=== PATIENT | female | born 1955 | race Caucasian/White ===

== ENCOUNTER → 2016-07-10 | Outpatient (CLI) | payer OTHER ==
[~2016-07-10] MED LIST: ADVIN25/60 INH; ALBUAER2 INH; ALPHTAB4 PO; AMLO-110 PO; APR50 PO; ARIP1TAB14 PO; ATV1 PO; AZIT-57 PO; BUDE180I INH; CARV12.52 PO; CHOL1000 PO; CHOLCAP2 PO; CLON-460 PO; CTP1 PO; CYAN10005 PO; DIAZ10TA3 PO; FLUO20CA36 PO; FLUT0.15 NAE; HYDR25TA4 PO; IPRASOL4 INH; LOSA100T65 PO; LVQ250 PO; MISC1TAB74 PO; MULT-506 PO; OXYC1TAB3 PO; PROM25TA9 PO; SPRIN/30 INH; VNTHFA/IN INH; VTMD PO; ZOLP10TA6 PO
[2016-07-10 10:56] LABS: BASO % 0.1 %; BASO ABS # 0.02 K/uL (0-0.2); COMPLETE YES; EOS % 0.3 %; HEMATOCRIT 39.5 % (37-47); IG% 0.1 %; LYMPH % 8.7 %; LYMPH ABS # 1.21 K/uL (1.2-3.4); MEAN CELL VOLUME 85.3 fL (80-100); MEAN CORPUSCULAR HEMOGLOBIN 28.7 pg (25-34); MEAN CORPUSCULAR HGB CONC 33.7 g/dl (32-36); MONO % 8.2 %; NEUT % 82.6 %; PLATELET COUNT 320 K/uL (130-400); RED BLOOD COUNT 4.63 M/uL (4.2-5.4); WHITE BLOOD COUNT 13.85 K/uL (4.8-10.8)
[2016-07-10 11:13] LABS: ALT/SGPT 22 U/L (12-78); AST/SGOT 27 U/L (15-37); BLOOD UREA NITROGEN 21 mg/dl (7-18); BUN/CREATININE RATIO 21.4 (10-20); CARBON DIOXIDE 27 mmol/L (21-32); CHLORIDE 96 mmol/L (98-107); CREATININE 0.96 mg/dl (0.60-1.20); GLUCOSE 101 mg/dl (70-99); POTASSIUM 3.6 mmol/L (3.5-5.1); SODIUM 130 mmol/L (136-145)
[2016-07-10 11:22] LABS: ALB/GLOB RATIO 0.8 (0.9-2); ALKALINE PHOSPHATASE 72 U/L (45-117); CHOLESTEROL 171 mg/dl (0-200); CHOLESTEROL/HDL RATIO 4.4; HDL CHOLESTEROL 39 mg/dl; LDL CHOLESTEROL CALCULATED 100 mg/dl; THYROID STIMULATING HORMONE 0.864 uIu/ml (0.300-4.500); TRIGLYCERIDES 159 mg/dl (0-150); VERY LOW DENSITY LIPOPROT CALC 32 mg/dl
== END | disposition home or self-care (01) ==
LOC: C.LAB 10:23
PROVIDERS: ATTEND Internal Medicine
DX: E55.9 Vitamin D deficiency, unspecified (principal); E04.1 Nontoxic single thyroid nodule; Z11.59 Encounter for screening for other viral diseases; E78.5 Hyperlipidemia, unspecified; I10 Essential (primary) hypertension

== ENCOUNTER → 2016-07-12 | Outpatient (CLI) | payer OTHER ==
--- NOTE | 2016-07-12 12:14 | DIAGNOSTIC IMAGING REPORT ---
TWO VIEW CHEST CLINICAL HISTORY: Fever. Atypical chest pain.. FINDINGS: PA and lateral chest radiographs are compared to study dated 04/15/2015 and correlated with chest CT dated 12/07/2015. The PA view is degraded by patient rotation. The heart is top normal for projection. There is atherosclerotic calcification of the thoracic aorta. Advanced emphysema and chronic interstitial thickening are similar to previous there there is developing nodularity identified at the right apex and in the left upper lobe. This is new from 12/07/2015. No lobar consolidation is seen. Small pleural effusions are suggested on the lateral view. There is no pneumothorax. The skeletal structures are osteopenic. The bony thorax appears intact. IMPRESSION: 1. Advanced emphysema. 2. There are nodular airspace opacities at the right apex and in the left upper lobe. These are new from 12/07/2015, and although this could be on an infectious/inflammatory basis neoplasm is not excluded. Follow-up with a chest CT is recommended in 2-3 weeks time following appropriate treatment. 3. Small pleural effusions are suspected on the lateral view. Electronically signed by: Vinny Epps M.D. 07/12/2016 12:11 PM Dictated Date/Time: 07/12/2016 12:08 PM
[2016-07-12 12:48] LABS: URINE APPEARANCE CLEAR (CLEAR); URINE BILIRUBIN NEG (NEG); URINE COLOR YELLOW; URINE EPITHELIAL CELL AUTO >30 /lpf (0-5); URINE NITRITE NEG (NEG); URINE PH 6.5 (4.5-7.5); URINE SPECIFIC GRAVITY 1.012 (1.000-1.030); UROBILINOGEN NEG (NEG); ZZUR CULT IF INDIC CLEAN CATCH NO
[2016-07-12 12:56] LABS: MANUAL MICROSCOPIC REQUIRED? NO; REVIEW REQ? NO
== END | disposition home or self-care (01) ==
LOC: C.RAD1850 11:26
PROVIDERS: ATTEND Internal Medicine
DX: Z87.898 Personal history of other specified conditions (principal)

== ENCOUNTER → 2016-07-25 | Outpatient (CLI) | payer OTHER ==
--- NOTE | 2016-07-25 10:30 | DIAGNOSTIC IMAGING REPORT ---
CT OF THE CHEST WITHOUT IV CONTRAST CLINICAL HISTORY: Lung mass, leukocytosis. Prior abnormal CT scan. COMPARISON STUDY: 12/07/2015 CT DOSE: 188.91 mGy.cm TECHNIQUE: CT of the thorax was performed from the thoracic inlet to the lung bases. Images are reviewed in the axial, sagittal, and coronal planes. IV contrast was not administered for this examination. FINDINGS: Thyroid: Imaged portions of the thyroid gland are normal in appearance. Thoracic aorta: The thoracic aorta is normal in course and caliber, noting standard 3 vessel arch anatomy. Heart: The heart is normal in size. There are coronary artery calcifications. Lungs and pleural spaces: There are no significant pleural effusions. There is a new irregular 1 cm nodule within the right upper lobe as visualized in image #96/301. There is a new irregular 5 mm nodule within the right upper lobe as visualized in image #65/301. There is a new pleural-based irregular right apical pulmonary nodule measuring 16 mm as visualized on image #38/301. There is a new 12 mm irregular left upper lobe pulmonary nodule as visualized in image #63/301. There are 2 irregular marginated nodules within the superior segment of the left lower lobe measuring 12 mm 11 mm respectively. These are best visualized on images #86/301 and 96/301. There is moderately severe pulmonary emphysema. Mediastinum: Mediastinal lymph nodes are the upper limits of normal in size. Irene: There is no evidence of pathologic hilar adenopathy given the limitations of a noncontrast study Axilla: Clear. Upper abdomen: There are multiple hypodense hepatic lesions which approach water attenuation likely represent cysts. Skeletal structures: There are no lytic or blastic osseous lesions. IMPRESSION: 1. Interval development of multiple irregular pulmonary opacities. The time course favors an inflammatory over neoplastic etiology. A 2 month follow-up CT scan subsequent antibiotic therapy is recommended. 2. Emphysema. Electronically signed by: Medardo Mustafa M.D. 07/25/2016 10:04 AM Dictated Date/Time: 07/25/2016 9:53 AM
== END | disposition home or self-care (01) ==
LOC: C.CTS 09:30
PROVIDERS: ATTEND Internal Medicine
DX: D72.829 Elevated white blood cell count, unspecified (principal); J18.9 Pneumonia, unspecified organism; R91.8 Other nonspecific abnormal finding of lung field

== ENCOUNTER → 2016-09-05 | Outpatient (CLI) | payer OTHER ==
[2016-09-05 13:03] LABS: BASO % 0.6 %; BASO ABS # 0.04 K/uL (0-0.2); COMPLETE YES; EOS % 1.5 %; HEMATOCRIT 40.7 % (37-47); IG% 0.2 %; LYMPH % 26.1 %; LYMPH ABS # 1.72 K/uL (1.2-3.4); MEAN CELL VOLUME 87.5 fL (80-100); MEAN CORPUSCULAR HGB CONC 33.2 g/dl (32-36); MEAN PLATELET VOLUME 10.3 fL (7.4-10.4); MONO % 5.5 %; NEUT % 66.1 %; PLATELET COUNT 273 K/uL (130-400); RED BLOOD COUNT 4.65 M/uL (4.2-5.4); WHITE BLOOD COUNT 6.59 K/uL (4.8-10.8)
[2016-09-05 14:33] LABS: ESTIMATED AVERAGE GLUCOSE 120 mg/dl; HA1C FLAG Normal (Normal)
[2016-09-05 15:50] LABS: ALT/SGPT 35 U/L (12-78); BLOOD UREA NITROGEN 9 mg/dl (7-18); BUN/CREATININE RATIO 10.8 (10-20); CARBON DIOXIDE 24 mmol/L (21-32); CHLORIDE 105 mmol/L (98-107); CREATININE 0.84 mg/dl (0.60-1.20); GLUCOSE 77 mg/dl (70-99); POTASSIUM 3.9 mmol/L (3.5-5.1); SODIUM 140 mmol/L (136-145)
[2016-09-05 16:01] LABS: ALB/GLOB RATIO 1.1 (0.9-2); ALKALINE PHOSPHATASE 67 U/L (45-117); AST/SGOT 43 U/L (15-37)
[2016-09-05 16:10] LABS: CALCIUM 9.3 mg/dl (8.5-10.1)
[2016-09-08 18:12] LABS: TSI <89 % baseline (<140)
== END | disposition home or self-care (01) ==
LOC: C.LAB1850 11:44
PROVIDERS: ATTEND Internal Medicine Endocrinology, Diabetes & Metabolism
DX: R73.9 Hyperglycemia, unspecified (principal); E04.1 Nontoxic single thyroid nodule; G62.9 Polyneuropathy, unspecified; R00.2 Palpitations

== ENCOUNTER → 2016-09-07 | Outpatient (CLI) | payer OTHER ==
--- NOTE | 2016-09-07 16:04 | DIAGNOSTIC IMAGING REPORT ---
Thyroid ultrasound CLINICAL HISTORY: E04.1 Thyroid COMPARISON STUDY: 10/16/2015 FINDINGS: The right lobe of the thyroid measures 42 x 14 x 12 mm. There is a circumscribed hypoechoic upper pole nodule measuring 6 x 5 x 4 mm. There is a lower pole hypoechoic nodule measuring 4 x 3 x 4 mm. The left lobe measures 40 x 9 x 11 mm. There are tangential hypoechoic foci inferior to the left lobe of the thyroid, possibly representing lymph nodes. The largest measures 7 x 5 x 4 mm. Also evident are mildly prominent lymph nodes within the neck. The largest the right measures 16 mm in long axis. The largest on the left measures 11 mm in long axis. IMPRESSION: 1. Stable multinodular thyroid gland 2. Tangential hypoechoic nodules inferior to the left lobe of thyroid. While likely representing lymph nodes, one of these could represent a parathyroid nodule. 3. Minimally prominent cervical lymph nodes. Electronically signed by: Medardo Mustafa M.D. 09/07/2016 4:02 PM Dictated Date/Time: 09/07/2016 3:58 PM
== END | disposition home or self-care (01) ==
LOC: C.ULTR 15:26
PROVIDERS: ATTEND Internal Medicine Endocrinology, Diabetes & Metabolism
DX: E04.2 Nontoxic multinodular goiter (principal)

== ENCOUNTER 2016-09-19 10:21 | Inpatient (IN) | payer OTHER ==
[~2016-09-19] VITALS: Ht 149.9 cm; Wt 41.5 kg
[~2016-09-19 10:21] MED LIST changes: -ALPHTAB4 PO; -AZIT-57 PO; -CHOLCAP2 PO; -CTP1 PO; -CYAN10005 PO; -FLUT0.15 NAE; -LVQ250 PO; -MISC1TAB74 PO; -VNTHFA/IN INH
[2016-09-19 11:17] LABS: HEMATOCRIT 35.4 % (37-47); MEAN CELL VOLUME 87.6 fL (80-100); MEAN CORPUSCULAR HEMOGLOBIN 28.7 pg (25-34); MEAN CORPUSCULAR HGB CONC 32.8 g/dl (32-36); MEAN PLATELET VOLUME 9.3 fL (7.4-10.4); PLATELET COUNT 569 K/uL (130-400); RED BLOOD COUNT 4.04 M/uL (4.2-5.4); WHITE BLOOD COUNT 15.84 K/uL (4.8-10.8)
--- NOTE | 2016-09-19 11:23 | DIAGNOSTIC IMAGING REPORT ---
CHEST ONE VIEW PORTABLE CLINICAL HISTORY: Atypical chest pain and shortness of breath COMPARISON STUDY: 07/12/2016 FINDINGS: The cardiac and mediastinal contours remain stable. The patient is hyperinflated. There is underlying pulmonary emphysema. The previously identified upper lobe nodular opacities appear less prominent. There is no lobar consolidation. There is persistent blunting of the right lateral costophrenic angle.[ IMPRESSION: 1. Pulmonary emphysema 2. Decreased prominence of the previously described nodular upper lung zone opacities Electronically signed by: Medardo Mustafa M.D. 09/19/2016 11:22 AM Dictated Date/Time: 09/19/2016 11:20 AM
[2016-09-19 11:34] LABS: PARTIAL THROMBOPLASTIN RATIO 1.2; PROTHROMBIN TIME (PATIENT) 11.2 SECONDS (9.0-12.0)
[2016-09-19 11:35] LABS: BUN/CREATININE RATIO 12.4 (10-20); CALCIUM 9.2 mg/dl (8.5-10.1); CREATININE 0.71 mg/dl (0.60-1.20); POTASSIUM 3.6 mmol/L (3.5-5.1)
[2016-09-19] MEDS ORDERED: VNTHFA/IN INH (11:35)
[2016-09-19] MEDS ORDERED: CHOLCAP2 PO (11:38)
[2016-09-19 11:40] LABS: ALB/GLOB RATIO 0.7 (0.9-2); CKMB/CK RATIO 1.5 (0-3.0)
[2016-09-19] MEDS ORDERED: SODIUM CHLORIDE 0.9% 1000ML 1,000 ML IV STA (11:52)
[2016-09-19] MEDS ORDERED: ALPHTAB4 PO (11:53)
[2016-09-19] MEDS ORDERED: FLUT0.15 NAE (11:54)
[2016-09-19] MEDS ORDERED: MISC1TAB74 PO (11:55)
[2016-09-19] MEDS ORDERED: CYAN10005 PO (11:55)
--- NOTE | 2016-09-19 12:32 | EMERGENCY ROOM VISIT NOTE ---
History Report prepared by Anup: Yesenia Freeman Under the Supervision of: Dr. Shaina Contreras D.O. First contact with patient: 11:07 Chief Complaint: Chest pain Stated Complaint: V, TROUBLE BREATHING, CP Nursing Triage Summary: pt has been running fever, weak and chest pain left neck into head. has hx emphysema and copd History of Present Illness The patient is a 60 year old female who presents to the Emergency Room with complaints of constant chest pain since yesterday. Daughter states that many family members have been sick with respiratory symptoms recently. Last week the patient developed intermittent fevers with temperatures up to 104. She then developed chest pain, cough, shortness of breath, and generalized body aches. The patient notes chest pain that radiates into the left side of her neck. She rates her pain as a 10/10 in severity. She took 4 ibuprofen today for her symptoms. She has multiple inhalers and a nebulizer at home. 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 She cannot use NC O2 because of previous skin cancer on her nose and she cannot move air through her nostrils. The patient notes a loss of appetite. She states that she has not eaten in two days because when she eats she starts to shake. She denies any abdominal pain with eating. She has felt nauseated but denies any vomiting. The patient was recently diagnosed with Graves' Disease. She has not started her treatment course yet and has a follow-up appointment for that on September 27. She also has osteoporosis and the patient reports bone pain that she thinks is secondary to her osteoporosis. She also has a history of COPD and emphysema. The patient does see a practice physician. She is on Lasix but does not take it every day. Source of History: patient, family (daughter) Onset: yesterday Position: chest Symptom Intensity: 10/10 Quality: other (radiating) Timing: constant Modifying Factors (Relieving): ibuprofen Associated Symptoms: + fevers, + cough, + SOB, + nausea, No vomiting, No abdominal pain Review of Systems See HPI for pertinent positives & negatives. A total of 10 systems reviewed and were otherwise negative. Past Medical & Surgical Medical Problems: (1) Anxiety (2) Back pain (3) Brain aneurysm (4) CAD (coronary artery disease) (5) COPD (chronic obstructive pulmonary disease) (6) GERD (gastroesophageal reflux disease) (7) GI bleed (8) Hypertension (9) Nausea & vomiting (10) Nausea & vomiting (11) Pneumonia (12) PTSD (post-traumatic stress disorder) Family History Cancer Heart disease Hypertension Kidney disease Kidney stones Social History Smoking Status: Current Every Day Smoker Alcohol Use: occasionally Marital Status: Housing Status: lives with family Occupation Status: disabled Current/Historical Medications Scheduled Albuterol Hfa (Ventolin Hfa), 2 PUFFS INH BID Vmffb-G-Waqlkfjfhmlwr (Beano), 2 TABS PO TIDM Amlodipine (Norvasc), 5 MG PO BID Aripiprazole (Aripiprazole), 5 MG PO DAILY Budesonide (Inhalation) (Pulmicort Flexhaler), 2 PUFFS INH BID Carvedilol (Coreg), 0.5 TAB PO BID Cholecalciferol (Vitamin D3), 1 TAB PO DAILY Cholecalciferol (D3-50), 1 CAP PO 2XWK Clonidine HCl (Clonidine HCl), 0.3 MG PO TID Cyanocobalamin (Vitamin B-12), 1,000 MCG PO DAILY Fluoxetine HCl (Fluoxetine HCl), 20 MG PO QID Fluticasone Prop/Salmeterol (Advair Diskus 250/50 60 Dose), 1 PUFF INH BID Fluticasone Propionate (Nasal) (Flonase Allergy Relief), 1 SPRAY YUVAL DAILY Hydralazine HCl (Hydralazine HCl), 100 MG PO BID Hydrochlorothiazide (Hctz), 25 MG PO DAILY Lorazepam (Lorazepam), 3 MG PO HS Losartan Potassium (Cozaar), 100 MG PO DAILY Misc Natural Products (Green Tea), 1 TAB PO DAILY Multivitamin (Multivitamin), 1 TAB PO DAILY Tiotropium [place] (Spiriva Handihaler), 1 CAP INH DAILY Scheduled PRN Diazepam (Valium), 10 MG PO BID PRN for Anxiety Ipratropium-Albuterol (Duoneb), 1 TREATMENT INH Q4H PRN for SOB/Wheezing Promethazine Hcl (Phenergan), 25 MG PO BID PRN for Nausea Zolpidem Tartrate (Zolpidem Tartrate), 10 MG PO HS PRN for Sleep Allergies Coded Allergies: Lamotrigine (Verified Allergy, Intermediate, RASH, NAUSEA, 02/18/16) Ondansetron (Verified Allergy, Intermediate, ITCHING, 09/19/16) Amoxicillin (Verified Allergy, Unknown, UNKN, 09/19/16) Clavulanic Acid (Verified Allergy, Unknown, UNKN, 09/19/16) Gabapentin (Verified Allergy, Unknown, UNKN, 02/18/16) Ketamine (Unverified Allergy, Unknown, claims it will cause sudden , 09/19/16) Tramadol (Verified Adverse Reaction, Intermediate, NAUSEA, 02/18/16) Physical Exam Vital Signs Date Time Temp Pulse Resp B/P (MAP) Pulse Ox O2 Delivery O2 Flow Rate FiO2 09/19/16 16:06 91 18 148/108 96 Mask 2.0 09/19/16 14:51 90 18 150/104 98 Mask 2.0 09/19/16 13:54 89 18 143/89 98 Mask 2.0 09/19/16 13:28 96 09/19/16 13:24 37.4 09/19/16 12:55 89 18 147/94 98 Mask 2.0 09/19/16 12:20 89 18 151/103 98 Mask 2.0 09/19/16 11:30 92 20 158/104 99 Mask 2.0 09/19/16 11:00 95 20 99 Mask 2.0 09/19/16 11:00 99 Mask 2.0 09/19/16 10:56 99 09/19/16 10:47 100 20 158/107 99 Mask 2.0 09/19/16 10:27 36.9 107 18 158/91 88 Physical Exam GENERAL: alert, appears older than stated age, frail appearing, ill appearing. EYE EXAM: normal conjunctiva, PERRL and EOM's grossly intact OROPHARYNX: no exudate, no erythema, lips, buccal mucosa, and tongue normal and mucous membranes are mildly dry NECK: supple, left perispinal region reproducible tenderness, no carotid bruits , no nuchal rigidity, no adenopathy LUNGS: Breath sounds diminished. Normal chest wall mechanics HEART: no murmurs, S1 normal and S2 normal CHEST: No reproducible chest pain. ABDOMEN: abdomen soft, non-tender, normo-active bowel sounds, no masses, no rebound or guarding. BACK: Back is symmetrical on inspection and there is no deformity, no midline tenderness, no CVA tenderness. SKIN: no rashes and no bruising UPPER EXTREMITIES: upper extremities are grossly normal. LOWER EXTREMITIES: No pitting edema. NEURO EXAM: Normal sensorium, cranial nerves II-XII grossly intact, normal speech, no gross weakness of arms, no gross weakness of legs. Medical Decision & Procedures ER Provider Diagnostic Interpretation: Radiology results have been interpreted by the radiologist and reviewed by me. CHEST ONE VIEW PORTABLE CLINICAL HISTORY: Atypical chest pain and shortness of breath COMPARISON STUDY: 07/12/2016 FINDINGS: The cardiac and mediastinal contours remain stable. The patient is hyperinflated. There is underlying pulmonary emphysema. The previously identified upper lobe nodular opacities appear less prominent. There is no lobar consolidation. There is persistent blunting of the right lateral costophrenic angle.[ IMPRESSION: 1. Pulmonary emphysema 2. Decreased prominence of the previously described nodular upper lung zone opacities Electronically signed by: Medardo Mustafa M.D. 09/19/2016 11:22 AM Dictated Date/Time: 09/19/2016 11:[address] ANGIOGRAM OF THE CHEST CLINICAL HISTORY: Atypical chest pain and shortness of breath COMPARISON STUDY: Noncontrast chest CT dated 07/25/2016 TECHNIQUE: Following the IV administration of 72 mL of Optiray-320, CT angiogram of the thorax was performed from the thoracic inlet to the lung bases utilizing the pulmonary embolus protocol. Images are reviewed in the axial, sagittal, and coronal planes. IV contrast was administered without complication. MIP imaging was performed. CT DOSE: 180.72 mGy.cm FINDINGS: There is a 37 mm left lobe hepatic cyst. There are borderline enlarged bilateral hilar lymph nodes. There was no evidence of thoracic aortic dilatation. There were no pulmonary artery filling defects to indicate acute pulmonary embolism. No pleural effusions are visualized. There is pulmonary emphysema. There is respiratory motion artifact. There is no lobar consolidation. There is an 8 mm left upper lobe pulmonary nodule, slightly smaller than the prior study. There is a 13 mm right upper lobe pleural-based opacity, slightly smaller than the prior study. There is an 8 mm Visual left lower lobe nodule, slightly smaller than the prior study. There is mild diffuse bronchial wall thickening. There are scattered tiny nodules, likely inflammatory/postinflammatory. IMPRESSION: 1. No evidence of acute pulmonary embolism 2. Borderline enlarged hilar lymph nodes 3. Emphysema 4. Interval decrease in the size of the multiple irregular pulmonary opacities. This favors an inflammatory over neoplastic etiology. Electronically signed by: Medardo Mustafa M.D. 09/19/2016 1:41 PM Dictated Date/Time: 09/19/2016 1:36 PM Laboratory Results Test 09/19/16 10:50 09/19/16 11:14 09/19/16 16:00 Prothrombin Time 11.2 SECONDS (9.0-12.0) Prothromb Time International Ratio 1.0 (0.9-1.1) Activated Partial Thromboplast Time 31.7 SECONDS (21.0-31.0) Partial Thromboplastin Ratio 1.2 D-Dimer 710 ug/L FEU (0-500) Total Bilirubin 0.3 mg/dl (0.2-1) Aspartate Amino Transf (AST/SGOT) 23 U/L (15-37) Alanine Aminotransferase (ALT/SGPT) 23 U/L (12-78) Alkaline Phosphatase 94 U/L (45-117) Total Creatine Kinase 106 U/L (26-192) Creatine Kinase MB 1.6 ng/ml (0.5-3.6) Creatine Kinase MB Ratio 1.5 (0-3.0) Pro-B-Type Natriuretic Peptide 823 pg/ml (0-900) Total Protein 7.1 gm/dl (6.4-8.2) Albumin 3.0 gm/dl (3.4-5.0) Globulin 4.1 gm/dl (2.5-4.0) Albumin/Globulin Ratio 0.7 (0.9-2) Hepatitis C Antibody Screen NEG (NEG) Bedside Troponin I < 0.030 ng/ml (0-0.045) Urine Color YELLOW Urine Appearance CLEAR (CLEAR) Urine pH 6.5 (4.5-7.5) Urine Specific [place] > 1.045 (1.000-1.030) Urine Protein NEG (NEG) Urine Glucose (UA) NEG (NEG) Urine Ketones NEG (NEG) Urine Occult Blood TRACE (NEG) Urine Nitrite NEG (NEG) Urine Bilirubin NEG (NEG) Urine Urobilinogen NEG (NEG) Urine Leukocyte Esterase NEG (NEG) Urine WBC (Auto) 10-30 /hpf (0-5) Urine RBC (Auto) 0-4 /hpf (0-4) Urine Hyaline Casts (Auto) 1-5 /lpf (0-5) Urine Epithelial Cells (Auto) 20-30 /lpf (0-5) Urine Bacteria (Auto) NEG (NEG) Laboratory results per my review. Medications Administered Medications (Trade) Dose Ordered Sig/Laura Route Start Time Stop Time Status Last Admin Dose Admin Sodium Chloride 1,000 ml @ 250 mls/hr Q4H STAT IV 09/19/16 11:52 09/19/16 15:51 DC 09/19/16 11:59 250 MLS/HR Methylprednisolone Sodium Succinate (Solu-Medrol IV) 125 mg NOW STAT IV 09/19/16 13:28 09/19/16 13:29 DC 09/19/16 13:52 125 MG Levofloxacin (Levaquin / D5W) 750 mg NOW STAT IV 09/19/16 13:28 09/19/16 13:29 DC 09/19/16 13:52 750 MG Acetaminophen (Tylenol Tab) 650 mg Q4H PRN PO 09/19/16 16:30 10/19/16 16:29 09/19/16 21:09 650 MG ECG Indication: chest pain Rate (beats per minute): 97 Rhythm: normal sinus Findings: no acute ischemic change, left axis deviation, other (normal intervals) ED Course 1107: The patient was evaluated in room C10. A complete history and physical exam was performed. 1152: NSS 1000 ml @ 250 mls/hr IV 1328: Levofloxacin 750 mg IV, Solu-Medrol 125 mg IV 1414: I reassessed the patient at this time. She is resting more comfortably. I discussed the results and treatment plan with the patient and her daughter. I answered all pertaining questions that they had. They expressed understanding and verbalized agreement. The patient will be evaluated by the [facility] for further management. Medical Decision Differential diagnoses includes but is not limited to acute coronary syndrome, myocardial infarction, pericarditis, pulmonary embolus, aortic dissection, pneumonia, pneumothorax, musculoskeletal, shingles, esophageal. Medication Reconciliation: I attest that I have personally reviewed the patient' s current medication list. Blood pressure screening: Patient was found to have an elevated blood pressure and was referred to their primary doctor for recheck and further treatment. Patient with significant comorbidities and concerning presentation today. Patient unable to wear home O2 to recent facial surgery, however patient continues to also smoke. Patient using home MDIs at home as directed did not feeling any sense of relief. Patient initially hypoxic and changed her facial mask. Additional imaging did not reveal any consolidation, effusion, evidence of pulmonary edema, or pulmonary embolism. Likely given new leukocytosis, recent fevers, worsening cough insurance of breath patient with COPD exacerbation. Doubt primary cardiac etiology. Patient given antibiotics and steroids here, offered nebulizer treatments the patient declined stating they typically "make her feel worse". Discussed with patient need for additional treatment, compliance with treatment plan, cessation of smoking, she verbalized understanding. Impression Primary Impression: COPD exacerbation Additional Impressions: Dyspnea Left sided chest pain Scribe Attestation The scribe's documentation has been prepared under my direction and personally reviewed by me in its entirety. I confirm that the note above accurately reflects all work, treatment, procedures, and medical decision making performed by me. Departure Information Dispostion Being Evaluated By Hospitalist Referrals RV. Aguila MD (PCP) Patient Instructions My [facility] Problem Qualifiers Additional Impressions: Dyspnea Dyspnea type: shortness of breath Qualified Codes: R06.02 - Shortness of breath
[2016-09-19] MEDS ORDERED: OPTIRAY 320 IV PRN (13:15)
[2016-09-19] MEDS ORDERED: LEVAQUIN 750MG / 150ML D5W IV STA (13:28)
[2016-09-19] MEDS ORDERED: METHYLPREDNISOLONE 125 MG VIAL IV STA (13:28)
--- NOTE | 2016-09-19 13:42 | DIAGNOSTIC IMAGING REPORT ---
CT ANGIOGRAM OF THE CHEST CLINICAL HISTORY: Atypical chest pain and shortness of breath COMPARISON STUDY: Noncontrast chest CT dated 07/25/2016 TECHNIQUE: Following the IV administration of 72 mL of Optiray-320, CT angiogram of the thorax was performed from the thoracic inlet to the lung bases utilizing the pulmonary embolus protocol. Images are reviewed in the axial, sagittal, and coronal planes. IV contrast was administered without complication. MIP imaging was performed. CT DOSE: 180.72 mGy.cm FINDINGS: There is a 37 mm left lobe hepatic cyst. There are borderline enlarged bilateral hilar lymph nodes. There was no evidence of thoracic aortic dilatation. There were no pulmonary artery filling defects to indicate acute pulmonary embolism. No pleural effusions are visualized. There is pulmonary emphysema. There is respiratory motion artifact. There is no lobar consolidation. There is an 8 mm left upper lobe pulmonary nodule, slightly smaller than the prior study. There is a 13 mm right upper lobe pleural-based opacity, slightly smaller than the prior study. There is an 8 mm Visual left lower lobe nodule, slightly smaller than the prior study. There is mild diffuse bronchial wall thickening. There are scattered tiny nodules, likely inflammatory/postinflammatory. IMPRESSION: 1. No evidence of acute pulmonary embolism 2. Borderline enlarged hilar lymph nodes 3. Emphysema 4. Interval decrease in the size of the multiple irregular pulmonary opacities. This favors an inflammatory over neoplastic etiology. Electronically signed by: Medardo Mustafa M.D. 09/19/2016 1:41 PM Dictated Date/Time: 09/19/2016 1:36 PM
[2016-09-19 16:17] LABS: URINE APPEARANCE CLEAR (CLEAR); URINE BILIRUBIN NEG (NEG); URINE COLOR YELLOW; URINE EPITHELIAL CELL AUTO 20-30 /lpf (0-5); URINE NITRITE NEG (NEG); URINE PH 6.5 (4.5-7.5); URINE SPECIFIC GRAVITY > 1.045 (1.000-1.030); UROBILINOGEN NEG (NEG); ZZUR CULT IF INDIC CLEAN CATCH YES
[2016-09-19 16:21] LABS: MANUAL MICROSCOPIC REQUIRED? NO; REVIEW REQ? NO
[2016-09-19] MEDS ORDERED: POLYETHYLENE (MIRALAX) 17 GM PACK PO PRN (16:30)
[2016-09-19] MEDS ORDERED: ALUMINUM/MAGNESIUM/SIMETH (MAALOX MAX) 30 ML UDC PO PRN (16:30)
[2016-09-19] MEDS ORDERED: MAGNESIUM HYDROXIDE SUSP 30 ML UDC PO PRN (16:30)
[2016-09-19] MEDS ORDERED: ZOLPIDEM TARTRATE 10 MG TAB PO PRN (16:45)
[2016-09-19] MEDS ORDERED: PROMETHAZINE HCL 25 MG TAB PO PRN (16:45)
[2016-09-19] MEDS ORDERED: DIAZEPAM 5MG TAB PO PRN (16:45)
[2016-09-19 18:02] VITALS: BP_SYST 159; BP_SYST 161; BP_DIAS 107; BP_DIAS 97; PULSE 93; TEMP 36.8; O2SAT 95
[2016-09-19 18:09] VITALS: BP 159/97; PULSE 93; TEMP 36.8; Ht 149.9 cm; Wt 41.5 kg
[2016-09-19] MEDS ORDERED: PNEUMOCOCCAL ADMINISTRATION CHARGE ONE (19:00)
[2016-09-19] MEDS ORDERED: PNEUMOCOCCAL POLYSACCHARIDES 25 MCG/0.5 ML VIAL/SYR IM. ONE (19:00)
[2016-09-19 19:36] VITALS: PULSE 106; O2SAT 96
[2016-09-19] MEDS: ALBUT/IPRATROP 3MG/0.5MG NEB 3 ML VIAL INH SCH (19:36)
[2016-09-19 20:05] VITALS: O2SAT 96
--- NOTE | 2016-09-19 20:06 | History and Physical ---
History & Physical Date & Time of Service: Sep 19, 2016 at 19:33 Chief Complaint: Chest Pain, Copd Exacerbation Primary Care Physician: RV. Aguila MD History of Present Illness Source: patient, family (granddaughter at bedside), clinic records, hospital records This is a 60 y/o female with a history of COPD, CAD, HTN, HLD, recently diagnosed with Grave's disease, anxiety and depression who presented to the ED on 09/19 with fevers, cough, shortness of breath and generalized pain. The patient complains of fevers up to 104F and a productive cough with yellow sputum for the last week. She has also noticed worsening shortness of breath and wheezing. The patient is supposed to be on continuous oxygen, but she states that she cannot use NC due to a severe septal deviation and nasal deformity. She complains of nausea but denies vomiting. She states that she has pain all over "in her bones" and rates this discomfort as a 10/10 ache everywhere. She also complains of a central chest pressure that she states has been present since her bronchoscopy several months ago. She rates her chest discomfort as a 4/10. She complains of intermittent palpitations, and states that her insomnia has been getting worse. The patient states she was recently diagnosed with Grave's disease but has not started treatment yet. She is scheduled to follow up with the tractor mechanic next week. The patient denies chills, sweats, palpitations, claudication, cough, wheezing, shortness of breath , vomiting, abdominal pain, dysuria, hematuria, urinary retention, paralysis, weakness, numbness and tingling. Past Medical/Surgical History Medical Problems: (1) Anxiety Status: Chronic (2) Back pain Status: Chronic (3) Brain aneurysm Status: Resolved (4) CAD (coronary artery disease) Status: Chronic (5) COPD (chronic obstructive pulmonary disease) Status: Chronic (6) GERD (gastroesophageal reflux disease) Status: Chronic (7) GI bleed Status: Resolved (8) Hypertension Status: Chronic (9) Nausea & vomiting Status: Resolved (10) Nausea & vomiting Status: Resolved (11) Pneumonia Status: Resolved (12) PTSD (post-traumatic stress disorder) Status: Chronic Family History Cancer (breast, thyroid) Heart disease Hypertension Kidney disease Kidney stones Myocardial infarction Stroke Social History Smoking Status: Current Every Day Smoker (3 cigarettes/day) Smokeless Tobacco Use: No Alcohol Use: none Drug Use: none Marital Status: Housing status: lives alone Occupational Status: disabled Immunizations History of Influenza Vaccine: No History of Tetanus Vaccine?: Yes History of Pneumococcal: No History of Hepatitis B Vaccine: No Multi-Drug Resistant Organisms History of MDRO: No Allergies Coded Allergies: Lamotrigine (Verified Allergy, Intermediate, RASH, NAUSEA, 02/18/16) Ondansetron (Verified Allergy, Intermediate, ITCHING, 09/19/16) Amoxicillin (Verified Allergy, Unknown, UNKN, 09/19/16) Clavulanic Acid (Verified Allergy, Unknown, UNKN, 09/19/16) Gabapentin (Verified Allergy, Unknown, UNKN, 02/18/16) Ketamine (Unverified Allergy, Unknown, claims it will cause sudden , 09/19/16) Tramadol (Verified Adverse Reaction, Intermediate, NAUSEA, 02/18/16) Home Medications Scheduled Albuterol Hfa (Ventolin Hfa), 2 PUFFS INH BID Yfgfp-V-Levwlyqmvaagu (Beano), 2 TABS PO TIDM Amlodipine (Norvasc), 5 MG PO BID Aripiprazole (Aripiprazole), 5 MG PO DAILY Carvedilol (Coreg), 0.5 TAB PO BID Cholecalciferol (Vitamin D3), 1 TAB PO DAILY Cholecalciferol (D3-50), 1 CAP PO 2XWK Clonidine HCl (Clonidine HCl), 0.3 MG PO TID Cyanocobalamin (Vitamin B-12), 1,000 MCG PO DAILY Fluoxetine HCl (Fluoxetine HCl), 20 MG PO QID Fluticasone Prop/Salmeterol (Advair Diskus 250/50 60 Dose), 1 PUFF INH BID Fluticasone Propionate (Nasal) (Flonase Allergy Relief), 1 SPRAY YUVAL DAILY Hydralazine HCl (Hydralazine HCl), 100 MG PO BID Hydrochlorothiazide (Hctz), 25 MG PO DAILY Levofloxacin (Levofloxacin), 250 MG PO DAILY@11 Lorazepam (Lorazepam), 3 MG PO HS Losartan Potassium (Cozaar), 100 MG PO DAILY Misc Natural Products (Green Tea), 1 TAB PO DAILY Multivitamin (Multivitamin), 1 TAB PO DAILY Tiotropium [place] (Spiriva Handihaler), 1 CAP INH DAILY Scheduled PRN Diazepam (Valium), 10 MG PO BID PRN for Anxiety Ipratropium-Albuterol (Duoneb), 1 TREATMENT INH Q4H PRN for SOB/Wheezing Promethazine Hcl (Phenergan), 25 MG PO BID PRN for Nausea Zolpidem Tartrate (Zolpidem Tartrate), 10 MG PO HS PRN for Sleep Review of Systems Constitutional: + fever, + weakness, + fatigue, No chills, No sweats Eyes: No worsening of vision, No eye pain, No diplopia ENT: No hearing loss, No sore throat, No trouble swallowing Respiratory: + cough, + sputum, + wheezing, + shortness of breath Cardiovascular: + chest pain, + palpitations, No claudication Abdomen: + nausea, No pain, No vomiting Musculoskeletal: + joint pain, No muscle pain, No swelling Genitourinary - Female: No dysuria, No urinary retention, No hematuria Neurologic: No paralysis, No weakness, No numbness/tingling Integumentary: No rash, No itch, No color change Physical Exam Vital Signs Date Time Temp Pulse Resp B/P (MAP) Pulse Ox O2 Delivery O2 Flow Rate FiO2 09/19/16 18:09 36.8 93 18 159/97 Mask 2.0 09/19/16 18:02 36.8 93 18 161/107 (125) 95 09/19/16 16:56 91 18 142/94 98 Mask 2.0 09/19/16 16:06 91 18 148/108 96 Mask 2.0 09/19/16 14:51 90 18 150/104 98 Mask 2.0 09/19/16 13:54 89 18 143/89 98 Mask 2.0 09/19/16 13:28 96 09/19/16 13:24 37.4 09/19/16 12:55 89 18 147/94 98 Mask 2.0 09/19/16 12:20 89 18 151/103 98 Mask 2.0 09/19/16 11:30 92 20 158/104 99 Mask 2.0 09/19/16 11:00 95 20 99 Mask 2.0 09/19/16 11:00 99 Mask 2.0 09/19/16 10:56 99 09/19/16 10:47 100 20 158/107 99 Mask 2.0 09/19/16 10:27 36.9 107 18 158/91 88 General Appearance: no apparent distress, + cachetic Head: normocephalic, atraumatic Eyes: normal inspection, PERRL, EOMI ENT: normal ENT inspection, hearing grossly normal, pharynx normal Neck: supple, no JVD, trachea midline Respiratory/Chest: normal breath sounds, no respiratory distress, + wheezing ( diffuse throughout) Cardiovascular: regular rate, rhythm, no gallop, no murmur Abdomen/GI: normal bowel sounds, non tender, soft Extremities/Musculoskelatal: normal inspection, no calf tenderness, no pedal edema Neurologic/Psych: alert, oriented x 3, + pertinent finding (anxious) Skin: normal color, warm/dry, no rash Diagnostics Laboratory Results Results Past 24 Hours Test 09/19/16 10:50 09/19/16 11:14 09/19/16 16:00 09/19/16 19:00 Range/Units White Blood Count 15.84 4.8-10.8 K/uL Red Blood Count 4.04 4.2-5.4 M/uL Hemoglobin 11.6 12.0-16.0 g/dL Hematocrit 35.4 37-47 % Mean Corpuscular Volume 87.6 80-100 fL Mean Corpuscular Hemoglobin 28.7 25-34 pg Mean Corpuscular Hemoglobin Concent 32.8 32-36 g/dl RDW Standard Deviation 48.1 36.4-46.3 fL RDW Coefficient of Variation 14.8 11.5-14.5 % Platelet Count 569 130-400 K/uL Mean Platelet Volume 9.3 7.4-10.4 fL Prothrombin Time 11.2 9.0-12.0 SECONDS Prothromb Time International Ratio 1.0 0.9-1.1 Activated Partial Thromboplast Time 31.7 21.0-31.0 SECONDS Partial Thromboplastin Ratio 1.2 D-Dimer 710 0-500 ug/L FEU Sodium Level 141 136-145 mmol/L Potassium Level 3.6 3.5-5.1 mmol/L Chloride Level 104 98-107 mmol/L Carbon Dioxide Level 29 21-32 mmol/L Anion Gap 8.0 3-11 mmol/L Blood Urea Nitrogen 9 7-18 mg/dl Creatinine 0.71 0.60-1.20 mg/dl Est Creatinine Clear Calc Drug Dose 48.6 ml/min Estimated GFR () 106.5 Estimated GFR (Non- 91.9 BUN/Creatinine Ratio 12.4 10-20 Random Glucose 93 70-99 mg/dl Calcium Level 9.2 8.5-10.1 mg/dl Total Bilirubin 0.3 0.2-1 mg/dl Aspartate Amino Transf (AST/SGOT) 23 15-37 U/L Alanine Aminotransferase (ALT/SGPT) 23 12-78 U/L Alkaline Phosphatase 94 45-117 U/L Total Creatine Kinase 106 26-192 U/L Creatine Kinase MB 1.6 0.5-3.6 ng/ml Creatine Kinase MB Ratio 1.5 0-3.0 Pro-B-Type Natriuretic Peptide 823 0-900 pg/ml Total Protein 7.1 6.4-8.2 gm/dl Albumin 3.0 3.4-5.0 gm/dl Globulin 4.1 2.5-4.0 gm/dl Albumin/Globulin Ratio 0.7 0.9-2 Bedside Troponin I < 0.030 0-0.045 ng/ml Urine Color YELLOW Urine Appearance CLEAR CLEAR Urine pH 6.5 4.5-7.5 Urine Specific [place] > 1.045 1.000-1.030 Urine Protein NEG NEG Urine Glucose (UA) NEG NEG Urine Ketones NEG NEG Urine Occult Blood TRACE NEG Urine Nitrite NEG NEG Urine Bilirubin NEG NEG Urine Urobilinogen NEG NEG Urine Leukocyte Esterase NEG NEG Urine WBC (Auto) 10-30 0-5 /hpf Urine RBC (Auto) 0-4 0-4 /hpf Urine Hyaline Casts (Auto) 1-5 0-5 /lpf Urine Epithelial Cells (Auto) 20-30 0-5 /lpf Urine Bacteria (Auto) NEG NEG Microbiology Results 09/19/16 Urine Culture, Received Pending Diagnostic Radiology Reviewed the following studies and agree with interpretation as follows: Patient Name: ANN MARIE MCALLISTER Unit Number: [id number] Dictated: 09/19/161119 Transcribed: 09/19/161119 ARG Printed Date/Time: [~ rep prt dt]/[~ rep prt tm] [~ rep ct labl] - [~ rep ct ivnm] [facility] [place] [address] Dictated: 09/19/16 1120 Transcribed: 09/19/16 1120 ARG Printed Date/Time: [~ rep prt dt]/[~ rep prt tm] [~ rep ct labl] - [~ rep ct ivnm] Patient: ANN MARIE MCALLISTER Address1: [address] Rec: [id number] Address2: Acct ID: [id number] [facility] Zip: [place] [address] Date: 1955 Sex: F Room/Bed: Ref Phy: RV. Aguila MD SC: [facility] Att Phy: Report #: [id number] Velma Phy: RV. Aguila MD Test: CXR1P Admit Phy: Automotive General Manager: TATY Interpreting Phy: Medardo Mustafa M.D. Diagnosis: V, TROUBLE BREATHING, CP Ordering Phy: ED, PROTOCOL Service Date: 09/19/16 Admit Date: 09/19/16 MNE: PWRSCRIBE CONF: DICTATED BY: Medardo Mustafa M.D.]] CC: RV. Aguila MD ED,PROTOCOL Shaina Contreras DO Endcc: [~ rep ct add3]] CHEST ONE VIEW PORTABLE CLINICAL HISTORY: Atypical chest pain and shortness of breath COMPARISON STUDY: 07/12/2016 FINDINGS: The cardiac and mediastinal contours remain stable. The patient is hyperinflated. There is underlying pulmonary emphysema. The previously identified upper lobe nodular opacities appear less prominent. There is no lobar consolidation. There is persistent blunting of the right lateral costophrenic angle.[ IMPRESSION: 1. Pulmonary emphysema 2. Decreased prominence of the previously described nodular upper lung zone opacities Electronically signed by: Medardo Mustafa M.D. 09/19/2016 11:22 AM Dictated Date/Time: 09/19/2016 11:20 AM The status of this report is Signed. Draft = Not yet reviewed or approved by Radiologist. Signed = Reviewed and approved by Radiologist. <AttendingPhy></AttendingPhy> <FamilyPhy>RV. Aguila MD</ FamilyPhy> <PrimaryPhy>RV. Aguila MD</PrimaryPhy> <UnitNumber> [id number]</UnitNumber> <VisitNumber>[id number]</VisitNumber> <PatientName> ANN MARIE MCALLISTER</PatientName> <DateOfBirth>1955</DateOfBirth> <Location>C.EDC< /Location> <ServiceDate>09/19/16</ServiceDate> <MNE>ESINDI</MNE> <OrderingPhy>ED , PROTOCOL</OrderingPhy> <OrderingPhyMNE>f rep ord dr clancy</OrderingPhyMNE> < DictatingPhyMNE>f rep dict dr clancy</DictatingPhyMNE> <CCListMNE>f rep ct mne</ CCListMNE> <AdmittingPhyMNE>f pt admit dr clancy</AdmittingPhyMNE> <AttendingPhyMNE >f pt attend dr clancy</AttendingPhyMNE> <ConsultingPhyMNE>f pt consult dr clancy</ConsultingPhyMNE> <FamilyPhyMNE>f pt fam dr clancy</FamilyPhyMNE> <OtherPhyMNE>f pt other dr clancy</OtherPhyMNE> < PrimaryPhyMNE>f pt prim care dr clancy</PrimaryPhyMNE> <ReferringPhyMNE>f pt referring dr clancy</ReferringPhyMNE> Patient Name: ANN MARIE MCALLISTER Unit Number: [id number] Dictated: 09/19/161335 Transcribed: 09/19/161335 ARG Printed Date/Time: [~ rep prt dt]/[~ rep prt tm] [~ rep ct labl] - [~ rep ct ivnm] [facility] [place] [address] Dictated: 09/19/161335 Transcribed: 09/19/161335 ARG Printed Date/Time: [~ rep prt dt]/[~ rep prt tm] [~ rep ct labl] - [~ rep ct ivnm] Patient: ANN MARIE MCALLISTER Address1: [address] [facility] Rec: [id number] Address2: [address] Acct ID: [id number] [facility] Zip: [place] [address] Date: 1955 Sex: F Room/Bed: Ref Phy: RV. Aguila MD SC: JAMIE Att Phy: Report #: [id number] Velma Phy: RV. Aguila MD Test: CXPEA Admit Phy: Automotive General Manager: FLACA Interpreting Phy: Medardo Mustafa M.D. Diagnosis: V, TROUBLE BREATHING, CP Ordering Phy: Shaina Contreras DO Service Date: 09/19/16 Admit Date: 09/19/16 MNE: PWRSCRIBE CONF: DICTATED BY: Medardo Mustafa M.D.]] CC: RV. Mingo, Shaina Broussard DO Endcc: [~ rep ct add3]] CT ANGIOGRAM OF THE CHEST CLINICAL HISTORY: Atypical chest pain and shortness of breath COMPARISON STUDY: Noncontrast chest CT dated 07/25/2016 TECHNIQUE: Following the IV administration of 72 mL of Optiray-320, CT angiogram of the thorax was performed from the thoracic inlet to the lung bases utilizing the pulmonary embolus protocol. Images are reviewed in the axial, sagittal, and coronal planes. IV contrast was administered without complication. MIP imaging was performed. CT DOSE: 180.72 mGy.cm FINDINGS: There is a 37 mm left lobe hepatic cyst. There are borderline enlarged bilateral hilar lymph nodes. There was no evidence of thoracic aortic dilatation. There were no pulmonary artery filling defects to indicate acute pulmonary embolism. No pleural effusions are visualized. There is pulmonary emphysema. There is respiratory motion artifact. There is no lobar consolidation. There is an 8 mm left upper lobe pulmonary nodule, slightly smaller than the prior study. There is a 13 mm right upper lobe pleural-based opacity, slightly smaller than the prior study. There is an 8 mm Visual left lower lobe nodule, slightly smaller than the prior study. There is mild diffuse bronchial wall thickening. There are scattered tiny nodules, likely inflammatory/postinflammatory. IMPRESSION: 1. No evidence of acute pulmonary embolism 2. Borderline enlarged hilar lymph nodes 3. Emphysema 4. Interval decrease in the size of the multiple irregular pulmonary opacities. This favors an inflammatory over neoplastic etiology. Electronically signed by: Medardo Mustafa M.D. 09/19/2016 1:41 PM Dictated Date/Time: 09/19/2016 1:36 PM The status of this report is Signed. Draft = Not yet reviewed or approved by Radiologist. Signed = Reviewed and approved by Radiologist. <AttendingPhy></AttendingPhy> <FamilyPhy>RV. Aguila MD</ FamilyPhy> <PrimaryPhy>RV. Aguila MD</PrimaryPhy> <UnitNumber> [id number]</UnitNumber> <VisitNumber>[id number]</VisitNumber> <PatientName> ANN MARIE MCALLISTER</PatientName> <DateOfBirth>1955</DateOfBirth> <Location>C.EDC< /Location> <ServiceDate>09/19/16</ServiceDate> <MNE>ESINDI</MNE> <OrderingPhy> Shaina Contreras DO</OrderingPhy> <OrderingPhyMNE>f rep ord dr clacny</ OrderingPhyMNE> <DictatingPhyMNE>f rep dict dr clancy</DictatingPhyMNE> <CCListMNE> f rep ct mne</CCListMNE> <AdmittingPhyMNE>f pt admit dr clancy</AdmittingPhyMNE> < AttendingPhyMNE>f pt attend dr clancy</AttendingPhyMNE> <ConsultingPhyMNE>f pt consult dr clancy</ConsultingPhyMNE> <FamilyPhyMNE>f pt fam dr clancy</FamilyPhyMNE> <OtherPhyMNE>f pt other dr clancy</OtherPhyMNE> < PrimaryPhyMNE>f pt prim care dr clancy</PrimaryPhyMNE> <ReferringPhyMNE>f pt referring dr clancy</ReferringPhyMNE> EKG Reviewed EKG and agree with interpretation as follows: 97 bpm, NSR Impression Assessment and Plan 60 y/o female with a history of COPD, CAD, HTN, HLD, recently diagnosed with Grave's disease, anxiety and depression who presented to the ED on 09/19 with fevers, cough, shortness of breath and generalized pain. Pt hypoxic on arrival with O2 sat of 88% on room air. Pt was afebrile and other VSS. WBC 15.84. D- dimer 710. CXR shows emphysema and improvement of previous nodular opacities. CTA negative for PE, shows borderline enlarged hilar lymph nodes. Pt was given loading dose of Solu-Medol and Levaquin in ED. COPD exacerbation -Admit to telemetry -O2 by protocol. Cannot use NC due to nasal deformities. H/o BCC of nose, Moh' s procedure and nasal reconstruction -Solu-Medrol 20 mg IV q8h, unlikely pt could tolerate higher dose -Levaquin 500 mg IV qd -DuoNebs QIDR and q2h prn SOB/wheezing -Continue Advair BID, Pulmicort BID and Spiriva Chest pain -Cardiac monitoring on tele -Troponin q8h x 3. First troponin negative -EKG q am and prn with chest pain CAD, HTN--medications per patient and outpt records -Continue Norvasc 5 mg PO TID, Coreg 6.25 mg PO BID, clonidine 0.3 mg PO TID, hydralazine 100 mg PO BID, HCTZ 25 mg PO qd and losartan 100 mg PO qd Anxiety and depression--medications per patient and outpt records -Continue Abilify 5 mg PO qd, diazepam 10 mg PO BID prn anxiety, and fluoxetine 20 mg PO QID Insomnia -Continue Ativan 3 mg PO qhs DVT prophylaxis -KAVON palma and SCDs Code Status -Level V, DO NOT RESUSCITATE Level of Care Telemetry Advanced Directives Existing Living Will: Yes Existing Power of Kayaking Instructor: No VTE Prophylaxis VTE Risk Assessment Done? Y/N: Yes Risk Level: Moderate Given or contraindicated: T.E.DNicholas Stockmiguel angel, SCD's Assessment and Plan Attending Addendum: I have physically seen and examined this patient, have directed the physician assistants medical extremities, and agree with the H&P as noted above with the following exceptions: NONE The patient is awake, well-developed and adequately nourished, alert and oriented 3, normocephalic and atraumatic, lying in bed and in no acute distress. HEENT--PERRL, EOMI, mucous membranes and oropharynx normal. Neck--supple, no JVD or bruits, thyroid normal, trachea midline, no adenopathy. Heart--normal S1 and S2, no extra beats, no murmurs, rubs or gallops. Lungs--decreased breath sounds at bases bilaterally/few scattered rhonchi, no respiratory distress, no accessory muscle use. Abdomen--normal bowel sounds and soft, nontender and nondistended, no hernias or masses, no organomegaly. Extremities--no cyanosis, clubbing or edema. There are good distal pulses b/l. Dermatologic--normal skin turgor, normal color, warm and dry, no abnormal lymph nodes, no rash. Neurologic--cranial nerves II through XII grossly intact, motor and sensory examination normal. Rheumatologic--normal range of motion, nontender, muscles and joints. Psychiatric--normal affect. Assessment and Plan: 1. COPD exacerbation--admitted to the telemetry unit for close oxygen monitoring, serial cardiac enzymes, cardiac rhythm monitoring and a 2-D echocardiogram with Dopplers. Place on Levaquin 500 mg IV daily, Solu-Medrol 20 mg IV every 8 hours, and guaifenesin extended release 600 mg by mouth twice a day. Duonebs 4 times a day and every 2 hours when necessary. Continue Advair, Pulmicort and Spiriva.
[2016-09-19] MEDS: FLUTICASONE/SALMETEROL 250/50 (ADVAIR) 14 PUFF/1 INHALER INH SCH (21:00)
[2016-09-19] MEDS ORDERED: AMLODIPINE BESYLATE 5 MG TAB PO SCH (21:00)
[2016-09-19] MEDS: CLONIDINE HCL 0.3 MG TAB PO SCH (21:00)
[2016-09-19] MEDS: CARVEDILOL 6.25 MG TAB PO SCH (21:00)
[2016-09-19] MEDS: ACETAMINOPHEN 325 MG TAB PO PRN (21:09)
[2016-09-19] MEDS: BUDESONIDE 90 MCG INH INH SCH (21:11)
[2016-09-19 21:15] VITALS: BP 132/84; PULSE 100
[2016-09-19] MEDS: METHYLPREDNISOLONE IV 20 MG in SYRINGE 0 ML IV SCH (21:31)
[2016-09-19] MEDS: LORAZEPAM 1 MG TAB PO SCH (22:20)
[2016-09-19 23:19] VITALS: BP 126/87; PULSE 88; TEMP 36.9; O2SAT 90
[2016-09-20] VITALS (15 sets, daily range): BP systolic 103–148; BP diastolic 69–95; PULSE 62–142; TEMP 36.3–37.3; O2SAT 90–99
[2016-09-20 03:59] LABS: BASO % 0.1 %; BASO ABS # 0.01 K/uL (0-0.2); COMPLETE YES; HEMATOCRIT 35.5 % (37-47); IG% 0.1 %; LYMPH % 10.4 %; LYMPH ABS # 0.73 K/uL (1.2-3.4); MEAN CELL VOLUME 88.1 fL (80-100); MEAN CORPUSCULAR HEMOGLOBIN 28.8 pg (25-34); MEAN CORPUSCULAR HGB CONC 32.7 g/dl (32-36); MEAN PLATELET VOLUME 9.4 fL (7.4-10.4); NEUT % 88.4 %; PLATELET COUNT 563 K/uL (130-400); RED BLOOD COUNT 4.03 M/uL (4.2-5.4); WHITE BLOOD COUNT 6.99 K/uL (4.8-10.8)
[2016-09-20 04:20] LABS: BUN/CREATININE RATIO 20.6 (10-20); CALCIUM 9.1 mg/dl (8.5-10.1); CARBON DIOXIDE 30 mmol/L (21-32); CHLORIDE 105 mmol/L (98-107); CREATININE 0.76 mg/dl (0.60-1.20); GLUCOSE 127 mg/dl (70-99); POTASSIUM 4.7 mmol/L (3.5-5.1); SODIUM 139 mmol/L (136-145)
[2016-09-20 04:27] LABS: BLOOD UREA NITROGEN 16 mg/dl (7-18)
[2016-09-20] MEDS ORDERED: NURSING VERBAL MED ORDER ONE ×2 (05:00→09:30)
[2016-09-20] MEDS ORDERED: METOPROLOL TARTRATE 1 MG/ML VIAL ONE (05:17)
[2016-09-20] MEDS: METHYLPREDNISOLONE IV 20 MG in SYRINGE 0 ML IV SCH ×2 (06:15→13:55)
[2016-09-20] MEDS: ALBUT/IPRATROP 3MG/0.5MG NEB 3 ML VIAL INH SCH ×4 (07:38→18:50)
[2016-09-20] MEDS: LOSARTAN POTASSIUM 50 MG TAB PO SCH (08:56)
[2016-09-20] MEDS: CLONIDINE HCL 0.3 MG TAB PO SCH ×3 (08:56→22:20)
[2016-09-20] MEDS: CARVEDILOL 6.25 MG TAB PO SCH ×3 (08:57→22:20)
[2016-09-20] MEDS: FLUTICASONE/SALMETEROL 250/50 (ADVAIR) 14 PUFF/1 INHALER INH SCH ×2 (08:58→22:19)
[2016-09-20] MEDS: MULTIVITAMIN TAB PO SCH (08:58)
[2016-09-20] MEDS: TIOTROPIUM BROMIDE 5 PUFF/90 MCG INH INH SCH (08:58)
[2016-09-20] MEDS: BUDESONIDE 90 MCG INH INH SCH ×2 (08:58→22:19)
[2016-09-20] MEDS: CHOLECALCIFEROL 1000 INTER.UNIT TAB PO SCH (08:59)
[2016-09-20] MEDS: CYANOCOBALAMIN 500 MCG TAB (VIT B-12) PO SCH (08:59)
[2016-09-20] MEDS: ARIPIprazole TAB 5 MG TAB PO SCH (09:00)
[2016-09-20] MEDS: FLUOXETINE HCL 20 MG CAP PO SCH ×5 (09:00→22:20)
[2016-09-20] MEDS: HYDROCHLOROTHIAZIDE 25 MG TAB PO SCH (09:01)
[2016-09-20] MEDS ORDERED: LEVOFLOXACIN / D5W 500 MG in PREMIXED IN D5W 100 ML IV SCH (14:00)
[2016-09-20] MEDS ORDERED: ALBUT/IPRATROP 3MG/0.5MG NEB 3 ML VIAL INH PRN (16:00)
--- NOTE | 2016-09-20 17:01 | ECHOCARDIOGRAM REPORT ---
*NOTICE TO RECEIVING CONSTITUTION PARTY AGENCY This information is strictly Confidential and protected under [place] law. [place] law prohibits you from making any further disclosure of this information unless further disclosure is expressly permitted by the written consent of the person to whom it pertains or is authorized by law. A general authorization for the release of medical or other information is not sufficient for this purpose. Hospital accepts no responsibility if the information is made available to any other person, INCLUDING THE PATIENT. Interpretation Summary * Name: ANN MARIE MCALLISTER Study Date: 09/20/2016 03:54 PM BP: 120/78 mmHg * Patient Location: [facility]\S\N282\S\2 HR: 65 * : 1955 (M/d/yyyy) Gender: Female Height: 59 in * Age: 60 yrs Ethnicity: [place] Weight: 89 lb * Ordering Physician: Zenia Ewing * Referring Physician: Self, Referred * Performed By: Shilpa Vitale [facility] * * Reason For Study: CHEST PAIN * BSA: 1.3 m2 * -- Conclusions -- * Compared with 12/08/14 study, mitral regurgitation has increased and diastolic dysfunction worse. * The left ventricle is normal in size. * Left ventricular systolic function is normal. * Ejection Fraction = 65-70%. * The left ventricular wall motion is normal. * There is mild concentric left ventricular hypertrophy. * Diastolic dysfunction, Grade II, consistent with elevated left atrial pressure. * There is mild to moderate mitral annular calcification. * There is moderate mitral regurgitation. * The left atrial size is normal. Procedure Details * A complete two-dimensional transthoracic echocardiogram was performed (2D, M-mode, Doppler and color flow Doppler). Left Ventricle * The left ventricle is normal in size. * There is mild concentric left ventricular hypertrophy. * Left ventricular systolic function is normal. * Ejection Fraction = 65-70%. * The left ventricular wall motion is normal. Atria * The left atrial size is normal. * Right atrial size is normal. Mitral Valve * There is mild to moderate mitral annular calcification. * There is moderate mitral regurgitation. Tricuspid Valve * The tricuspid valve is normal in structure and function. * Significant tricuspid regurgitation is absent. Aortic Valve * The aortic valve is trileaflet. * Aortic valve sclerosis mild, without significant aortic valvular stenosis. * No hemodynamically significant valvular aortic stenosis. * There is no significant aortic regurgitation. Pulmonic Valve * The pulmonic valve is not well seen, but is grossly normal. * There is no significant pulmonary regurgitation. Great Vessels * The aortic root is normal size. * No obvious dissection could be visualized. * The pulmonary artery is normal size. Pericardium/Pleural * There is no pericardial effusion. Great Vessels * Normal inferior vena cava diameter and respiratory variation suggests normal central venous pressure. Left Ventricular Diastolic Function * Diastolic dysfunction, Grade II, consistent with elevated left atrial pressure. MMode 2D Measurements and Calculations IVSd 1.0 cm IVSs 1.2 cm LVIDd 3.5 cm LVIDs 2.3 cm LVPWd 1.3 cm LVPWs 1.2 cm IVS/LVPW 0.80 FS 34.8 % EDV(Teich) 50.5 ml ESV(Teich) 17.6 ml EF(Teich) 65.1 % EDV(cubed) 42.5 ml ESV(cubed) 11.8 ml EF(cubed) 72.3 % % IVS thick 21.6 % % LVPW thick -1.91 % LV mass(C)d 123.4 grams LV mass(C)dI 94.4 grams/m\S\2 LV mass(C)s 78.7 grams LV mass(C)sI 60.2 grams/m\S\2 SV(Teich) 32.9 ml SI(Teich) 25.2 ml/m\S\2 SV(cubed) 30.8 ml SI(cubed) 23.5 ml/m\S\2 Ao root diam 2.6 cm Ao root area 5.4 cm\S\2 ACS 1.6 cm LA dimension 3.4 cm LA/Ao 1.3 LVOT diam 1.8 cm LVOT area 2.6 cm\S\2 LVAd ap4 20.8 cm\S\2 LVLd ap4 6.5 cm EDV(MOD-sp4) 55.2 ml EDV(sp4-el) 56.6 ml LVAs ap4 13.2 cm\S\2 LVLs ap4 5.3 cm ESV(MOD-sp4) 26.9 ml ESV(sp4-el) 27.8 ml EF(MOD-sp4) 51.3 % EF(sp4-el) 50.9 % LVAd ap2 25.2 cm\S\2 LVLd ap2 7.0 cm EDV(MOD-sp2) 74.7 ml EDV(sp2-el) 77.5 ml LVAs ap2 17.4 cm\S\2 LVLs ap2 6.2 cm ESV(MOD-sp2) 40.3 ml ESV(sp2-el) 41.1 ml EF(MOD-sp2) 46.0 % EF(sp2-el) 46.9 % LVLd %diff 7.0 % EDV(MOD-bp) 65.0 ml LVLs %diff 14.9 % ESV(MOD-bp) 34.9 ml EF(MOD-bp) 46.3 % SV(MOD-sp4) 28.3 ml SI(MOD-sp4) 21.7 ml/m\S\2 SV(MOD-sp2) 34.4 ml SI(MOD-sp2) 26.3 ml/m\S\2 SV(MOD-bp) 30.1 ml SI(MOD-bp) 23.0 ml/m\S\2 SV(sp4-el) 28.8 ml SI(sp4-el) 22.0 ml/m\S\2 SV(sp2-el) 36.4 ml SI(sp2-el) 27.8 ml/m\S\2 Doppler Measurements and Calculations MV E max rosie 98.1 cm/sec MV A max rosie 155.3 cm/sec MV E/A 0.63 MV P1/2t max rosie 109.4 cm/sec MV P1/2t 50.5 msec MVA(P1/2t) 4.4 cm\S\2 MV dec slope 634.0 cm/sec\S\2 MV dec time 0.17 sec Ao V2 max 106.4 cm/sec Ao max PG 4.5 mmHg Ao max PG (full) 1.0 mmHg CHARBEL(V,A) 2.3 cm\S\2 CHARBEL(V,D) 2.3 cm\S\2 LV V1 max PG 3.5 mmHg LV V1 max 93.8 cm/sec MR max rosie 548.3 cm/sec MR max PG 120.2 mmHg PA V2 max 55.1 cm/sec PA max PG 1.2 mmHg TR max rosie 228.9 cm/sec
[2016-09-20] MEDS: ACETAMINOPHEN 325 MG TAB PO PRN (20:41)
[2016-09-20] MEDS: LORAZEPAM 1 MG TAB PO SCH ×2 (22:19→22:50)
[2016-09-20] MEDS: AMLODIPINE BESYLATE 5 MG TAB PO SCH (22:20)
[2016-09-21] VITALS (9 sets, daily range): BP systolic 137–154; BP diastolic 84–90; PULSE 56–82; TEMP 36.8–37; O2SAT 83–97
[2016-09-21] MEDS: ACETAMINOPHEN 325 MG TAB PO PRN ×2 (04:20→14:34)
[2016-09-21] MEDS: ALBUT/IPRATROP 3MG/0.5MG NEB 3 ML VIAL INH SCH ×2 (07:19→19:37)
--- NOTE | 2016-09-21 07:56 | Hospitalist Progress Note ---
Hospitalist Progress Note Date of Service Sep 20, 2016. Subjective Pt evaluation today including: conversation w/ patient Pt quite anxious. Having chest pain intermittently, atypical, at rest x 3 days, worse with deep inspiration and cough, goes away on own, substernal, nonradiating. Is coughing up thick sputum, sometimes with a little blood tinge which she has brought to the attn previously of her [place]. She is also having intermittent heart palps and racing for months, recently told she may have Grave's dz and has appt with Endo next week. having SVT vs sinus tach in 140s on tele last night x 30 min and today for 10 min which she can feel. Constitutional: No fever Respiratory: + cough, + sputum, + shortness of breath Cardiovascular: + chest pain, + palpitations Abdomen: No pain Psychiatric: + anxiety All Other Systems: Reviewed and Negative Objective Vital Signs Date Time Temp Pulse Resp B/P (MAP) Pulse Ox O2 Delivery O2 Flow Rate FiO2 09/21/16 07:22 37.0 72 16 137/90 (106) 96 Oxymask 2.0 09/21/16 07:19 82 18 93 Room Air 09/21/16 04:47 36.8 70 20 154/86 (108) 94 Oxymask 2.0 09/21/16 04:05 Mask 2.0 09/21/16 00:05 Mask 2.0 09/20/16 23:40 36.9 68 16 148/89 (108) 98 2.0 09/20/16 20:17 36.9 96 19 124/84 (97) 90 Diffusion Mask 2.0 09/20/16 20:00 98 Oxymask 2.0 09/20/16 16:00 98 Oxymask 2.0 09/20/16 15:52 36.5 62 18 120/78 (92) 97 Diffusion Mask 3.0 09/20/16 15:43 68 09/20/16 14:35 142 132/95 (107) 09/20/16 13:54 76 117/77 (90) 98 Oxymask 2.0 09/20/16 12:12 37.3 80 20 142/87 (105) 99 Oxymask 4.0 09/20/16 12:00 Oxymask 2.0 09/20/16 11:17 82 18 99 Mask 4.0 09/20/16 08:53 78 103/69 (80) 97 Nasal Cannula 4.0 09/20/16 08:00 Oxymask 4.0 Physical Exam General Appearance: no apparent distress, + thin (very anxious) Eyes: normal inspection, sclerae normal ENT: hearing grossly normal Neck: supple, no JVD, trachea midline Respiratory/Chest: lungs clear, normal breath sounds, no respiratory distress, no accessory muscle use Cardiovascular: regular rate, rhythm, no edema, no gallop, no murmur Abdomen: normal bowel sounds, non tender, soft, no organomegaly, no pulsatile mass Extremities: non-tender, normal inspection, no pedal edema, no calf tenderness Neurologic/Psychiatric: alert, oriented x 3 Skin: normal color, warm/dry, no rash Laboratory Results Last 24 Hours Test 09/21/16 04:44 Assessment and Plan 60 y/o female with a history of COPD, CAD, HTN, HLD, recently diagnosed with Grave's disease, anxiety and depression who presented to the ED on 09/19 with fevers, cough, shortness of breath, and 3 days of chest pain. Pt hypoxic on arrival with O2 sat of 88% on room air. Pt was afebrile and other VSS. WBC 15.84. D-dimer 710. CXR shows emphysema and improvement of previous nodular opacities. CTA negative for PE, shows borderline enlarged hilar lymph nodes. Pt was given loading dose of Solu-Medol and Levaquin in ED. COPD exacerbation, Acute bronchitis vs atypical PNA -Admit to telemetry -O2 by protocol. Cannot use NC due to nasal deformities, using OxyMask. H/o BCC of nose, Moh's procedure and nasal reconstruction -Solu-Medrol 20 mg IV q8h, unlikely pt could tolerate higher dose--> dc this today as no wheezing and seems to be exacerbating her anxiety and SVT -continue Levaquin but switch to po as IV martins her arm -DuoNebs QIDR and q2h prn SOB/wheezing -Continue Advair BID, Pulmicort BID and Spiriva Chest pain-atypical, probably related to bronchitis but unclear, SVT at rest on tele at times -Cardiac monitoring on tele -troonins negative -EKG q am and prn with chest pain -Cardiology consult -continue beta sandy CAD, HTN--medications per patient and outpt records -Continue Norvasc 5 mg PO TID, Coreg 6.25 mg PO BID, clonidine 0.3 mg PO TID, hydralazine 100 mg PO BID, HCTZ 25 mg PO qd and losartan 100 mg PO qd Anxiety and depression--medications per patient and outpt records -Continue Abilify 5 mg PO qd, diazepam 10 mg PO BID prn anxiety, and fluoxetine 20 mg PO QID Insomnia -Continue Ativan 3 mg PO qhs DVT prophylaxis -KAVON palma and SCDs Code Status -Level V, DO NOT RESUSCITATE
[2016-09-21] MEDS: BUDESONIDE 90 MCG INH INH SCH (08:14)
[2016-09-21] MEDS: CARVEDILOL 6.25 MG TAB PO SCH (08:15)
[2016-09-21] MEDS: ARIPIprazole TAB 5 MG TAB PO SCH (08:15)
[2016-09-21] MEDS: CYANOCOBALAMIN 500 MCG TAB (VIT B-12) PO SCH (08:16)
[2016-09-21] MEDS: CHOLECALCIFEROL 1000 INTER.UNIT TAB PO SCH (08:16)
[2016-09-21] MEDS: HYDROCHLOROTHIAZIDE 25 MG TAB PO SCH ×2 (08:16→08:59)
[2016-09-21] MEDS: FLUOXETINE HCL 20 MG CAP PO SCH ×2 (08:16→12:45)
[2016-09-21] MEDS: MULTIVITAMIN TAB PO SCH (08:16)
[2016-09-21] MEDS: AMLODIPINE BESYLATE 5 MG TAB PO SCH (08:16)
[2016-09-21] MEDS: CLONIDINE HCL 0.3 MG TAB PO SCH ×2 (08:17→12:45)
[2016-09-21] MEDS: LOSARTAN POTASSIUM 50 MG TAB PO SCH (08:17)
[2016-09-21] MEDS: FLUTICASONE/SALMETEROL 250/50 (ADVAIR) 14 PUFF/1 INHALER INH SCH (08:17)
[2016-09-21] MEDS: TIOTROPIUM BROMIDE 5 PUFF/90 MCG INH INH SCH (08:17)
[2016-09-21 08:31] LABS: COMPLETE YES; EOS % 0.1 %; HEMATOCRIT 35.8 % (37-47); IG% 0.4 %; LYMPH % 19.4 %; LYMPH ABS # 2.34 K/uL (1.2-3.4); MEAN CELL VOLUME 89.1 fL (80-100); MEAN CORPUSCULAR HEMOGLOBIN 29.1 pg (25-34); MEAN CORPUSCULAR HGB CONC 32.7 g/dl (32-36); MEAN PLATELET VOLUME 9.4 fL (7.4-10.4); MONO % 7.8 %; NEUT % 72.3 %; PLATELET COUNT 658 K/uL (130-400); RED BLOOD COUNT 4.02 M/uL (4.2-5.4); WHITE BLOOD COUNT 12.09 K/uL (4.8-10.8)
[2016-09-21 08:56] LABS: BUN/CREATININE RATIO 26.2 (10-20); CALCIUM 9.1 mg/dl (8.5-10.1); CREATININE 0.82 mg/dl (0.60-1.20); POTASSIUM 4.2 mmol/L (3.5-5.1)
--- NOTE | 2016-09-21 09:51 | Cardiology Consultation ---
Cardiology Consultation Date of Service Sep 21, 2016. (Miracle Munoz, CAMERON) Cardiology Consultation Cardiology Consultation: SUBJECTIVE: Patient is a 60 year old female who follows with Dr. Yen Aleman for routine cardiac care. She carries a history of chronic non cardiac chest discomfort, prior dobutamine stress tests negative for ischemia (last in 2014), hypertensive heart disease with LVH and diastolic dysfunction, labile hypertension, medication non compliance, chronic tobacco abuse, severe oxygen dependent COPD, significant anxiety/depression issues. Patient was admitted to [facility] several days ago with complaints of chest pain, worsening cough with sputum production, SOB/hypoxia and blood tinged sputum. Diagnosed COPD exacerbation and started on antibiotics, steroids, in addition to nebs/inhalers. Serial Cardiac enzymes unremarkable. Echo with preserved LV function, no new wall motion abnormalities. EKG with mild diffuse ST/T wave flattening, without significant changes from previous. Yesterday patient had 3 episodes of tachycardia, probable atrial tach, lasting 45 min, 10 min, and 6 min respectively with rates ranging 140-160. She converted to NSR spontaneously. She noted palpitations during this time but no specific complaints of worsening CP or SOB. No dizziness, syncope or near syncope. No orthopnea, PND or edema. AT time of consult, patient's primary concern is feeling "weak" and "needing air ". She is non compliant with medications, declining most of her AM blood pressure meds this AM. She does not leave oxygen mask on as well. She admits to "chronic chest pain" unchanged since admission, described as constant chest pressure, worse with coughing and "breathing". No recurrent palpitations/SVT since last night. ROS: Pertinent positives as per HPI, comprehensive 4 system (cardiovascular, pulmonary, musculoskeletal, and gastroenterologic) review otherwise negative. PMH: Migraine Depression Statin intolerance insomnia COPD, severe Hypertension dyslipidemia GERD Tobacco abuse Social History States she quit smoking in March 2016 after 40+ years of multiple PPD. Lives in [facility]. Daughter assists with care. Surgical History: Procedure Laterality Date Age Comment TOTAL HYSTERECTOMY 1999 43 - 44y part of one ovary left in SMALL BOWEL ENDOSCOPY W/BX 10/24 51y REMOVAL OF APPENDIX 1969's PARTIAL REMOVAL OF OVARY(S) 1969' benign ovarian tumor LIGATE/CUT OVIDUCT(S) 1993 37 - 38y EGD, FLEXIBLE, BLEED CONTROL, ANY METHOD 06/08/2006 50y [place] lesion of stomach COLONOSCOPY W/ BIOPSY (RECTUM) 10/24 51y ABD/PELVIS CT W/ + W/O IV AND W/PO CONTRAST 12/08/06 51y mult hepatic cysts and poss small L renal cysts Family History: non contributory Review of patient's allergies indicates: Allergen Reactions Augmentin [Amoxicillin-Pot Clavulanate] Ether Food (See Comments) eggs Ketamine Lamotrigine Nausea/vomiting and Rash Neurontin [Gabapentin] Sulfa Antibiotics Bactrim: Marked GI distress Tramadol Nausea/vomiting Zofran [Ondansetron Hcl] Itching Current Outpatient Prescriptions Reported Home Medications Medications Dose Route/Sig Max Daily Dose Days Date Category Dose Instructions Vitamin B-12 (Cyanocobalamin) 1,000 Mcg Tab 1,000 Mcg PO DAILY 09/19/16 Reported Green Tea (Misc Natural Products) 1 Tab Tab 1 Tab PO DAILY 09/19/16 Reported Flonase Allergy Relief (Fluticasone Propionate (Nasal)) 50 Mcg/Act Spr 1 [place] YUVAL DAILY 09/19/16 Reported Beano (Silxc-M-Ptocqewpofbvs) 1 Tab Tab 2 Tabs PO TIDM 09/19/16 Reported D3-50 (Cholecalciferol) 50,000 Unit Cap 1 Cap PO 2XWK 28 09/19/16 Reported MONDAYS AND WEDNESDAYS Ventolin Hfa (Albuterol) 200 Puffs/98309 Mcg Aers 2 Puffs INH BID 09/19/16 Reported Vitamin D3 (Cholecalciferol) 1,000 Unit Tab 1 Tab PO DAILY 30 02/18/16 Reported Coreg (Carvedilol) 12.5 Mg Tab 0.5 Tab PO BID 90 02/18/16 Reported Phenergan (Promethazine HCl) 25 Mg Tab 25 Mg PO BID PRN 04/15/15 Reported Hctz (Hydrochlorothiazide) 25 Mg Tab 25 Mg PO DAILY 04/15/15 Reported Norvasc (Amlodipine Besylate) 5 Mg Tab 5 Mg PO BID 04/15/15 Reported Advair Diskus 250/50 60 Dose (Fluticasone Prop/Salmeterol) 1 Ea Aerp 1 Puff INH BID 04/15/15 Reported Duoneb (Ipratropium-Albuterol) 3 Ml Nebu 1 Treatment INH Q4H PRN 03/29/15 Reported Valium (Diazepam) 10 Mg Tab 10 Mg PO BID PRN 12/27/14 Reported Lorazepam 1 Mg Tab 3 Mg PO HS 12/27/14 Reported Aripiprazole 5 Mg Tab 5 Mg PO DAILY 12/27/14 Reported Clonidine HCl 0.3 Mg Tab 0.3 Mg PO TID 12/27/14 Reported Cozaar (Losartan Potassium) 100 Mg Tab 100 Mg PO DAILY 06/22/14 Reported Hydralazine HCl 50 Mg Tab 100 Mg PO BID 06/22/14 Reported Zolpidem Tartrate 10 Mg Tab 10 Mg PO HS PRN 06/22/14 Reported Fluoxetine HCl 20 Mg Cap 20 Mg PO QID 06/22/14 Reported Pulmicort Flexhaler (Budesonide (Inhalation)) 180 Mcg/Act Inh 2 Puffs INH BID 06/22/14 Reported Spiriva Handihaler (Tiotropium [place]isen[place]) 30 Puff/540 Mcg Aerp 1 Cap INH DAILY 11/09/11 Reported Multivitamin (Multivitamins) Tab 1 Tab PO DAILY 04/09/09 Reported OBJECTIVE/PHYSICAL EXAMINATION: Last 8 Hrs Date Time Temp Pulse Resp B/P (MAP) Pulse Ox O2 Delivery O2 Flow Rate FiO2 09/21/16 07:22 37.0 72 16 137/90 (106) 96 Oxymask 2.0 09/21/16 07:19 82 18 93 Room Air 09/21/16 04:47 36.8 70 20 154/86 (108) 94 Oxymask 2.0 09/21/16 04:05 Mask 2.0 General: NAD, AAO x3, under weight. Thin. Chronically ill. HEENT: Normocephalic. Atraumatic. Conjunctiva pink, no scleral icterus. No carotid bruits, the carotid upstrokes are brisk. No JVD. No HJR Heart: Regular normal S- 1 and S-2 no S-3 or S-4 gallop. No murmurs or rubs appreciated. PMI is not displaced. No RV heave. Lungs: Decreased breath sounds. No audible wheeze or rhonchi. Abdomen: Normal bowel sounds. Soft. Nontender. No masses or organomegaly. No abdominal bruits. Extremities: No clubbing, cyanosis, or edema. Pulses: radial=2/4, Dorsalis pedis =2/4, posterior tibial=2/4. Neuro: No focal deficits. Data from current admission: Telemetry reviewed - 3 episodes of paroxysmal atrial tach vs SVT at 140-160 bpm , lasting approx 45 min, 10 min and 6 min respectively. Otherwise NSR with rare PAC, PVC. Labs - Cardiac enzymes negative x3 Last 24 Hours Test 09/21/16 08:03 White Blood Count 12.09 K/uL Red Blood Count 4.02 M/uL Hemoglobin 11.7 g/dL Hematocrit 35.8 % Mean Corpuscular Volume 89.1 fL Mean Corpuscular Hemoglobin 29.1 pg Mean Corpuscular Hemoglobin Concent 32.7 g/dl Platelet Count 658 K/uL Mean Platelet Volume 9.4 fL Neutrophils (%) (Auto) 72.3 % Lymphocytes (%) (Auto) 19.4 % Monocytes (%) (Auto) 7.8 % Eosinophils (%) (Auto) 0.1 % Basophils (%) (Auto) 0.0 % Neutrophils # (Auto) 8.75 K/uL Lymphocytes # (Auto) 2.34 K/uL Monocytes # (Auto) 0.94 K/uL Eosinophils # (Auto) 0.01 K/uL Basophils # (Auto) 0.00 K/uL RDW Standard Deviation 47.9 fL RDW Coefficient of Variation 14.7 % Immature Granulocyte % (Auto) 0.4 % Immature Granulocyte # (Auto) 0.05 K/uL EKG on admission, 09/19/16 reviewed - Normal sinus rhythm Left axis deviation Septal infarct (cited on or before 09-NOV-2011) Abnormal ECG When compared with ECG of 15-APR-2015 13:22, ST no longer elevated in Anterior leads Nonspecific T wave abnormality now evident in Lateral leads EKG on 09/20/16 reviewed - Normal sinus rhythm Old Septal infarct Diffuse Nonspecific T wave abnormality When compared with ECG of 19-SEP-2016 10:38, No significant change EKG on 09/20/16 afternoon reviewed Atrial tach vs SVT at 142 bpm EKG on 09/21/16 AM, reviewed: Normal sinus rhythm with sinus arrhythmia Septal infarct (cited on or before 09-NOV-2011) Abnormal ECG When compared with ECG of 20-SEP-2016 14:32, Previous ECG has undetermined rhythm, needs review QRS axis Shifted right Questionable change in initial forces of Anterior leads T wave inversion no longer evident in Inferior leads T wave inversion no longer evident in Anterolateral leads Echocardiogram reviewed, dated 09/20/[address] [place] [facility] [place] -- Conclusions -- Compared with 12/08/14 study, mitral regurgitation has increased and diastolic dysfunction worse. The left ventricle is normal in size. Left ventricular systolic function is normal. Ejection Fraction = 65-70%. The left ventricular wall motion is normal. There is mild concentric left ventricular hypertrophy. Diastolic dysfunction, Grade II, consistent with elevated left atrial pressure. There is mild to moderate mitral annular calcification. There is moderate mitral regurgitation. The left atrial size is normal. Chest xray on admission reviewed - IMPRESSION: 1. Pulmonary emphysema 2. Decreased prominence of the previously described nodular upper lung zone opacities Chest CT on admission reviewed - IMPRESSION: 1. No evidence of acute pulmonary embolism 2. Borderline enlarged hilar lymph nodes 3. Emphysema 4. Interval decrease in the size of the multiple irregular pulmonary opacities. This favors an inflammatory over neoplastic etiology. Prior Data: Dobutamine stress echo report 07/2014: The stress echo is negative for inducible ischemia. The left ventricular ejection fraction increases normally with stress. Resting Study: The qualitative LV ejection fraction is 65-69% (normal). The LV wall thickness is moderately increased (concentric). The left ventricular diastolic function is mildly abnormal (grade I). Mild mitral regurgitation is present. Mild tricuspid regurgitation is present. ASSESSMENT: 1. Atypical chest pain - likely COPD exacerbation 2. COPD exacerbation 3. Paroxysmal atrial tachycardia vs SVT, likely secondary to nebs, steroids, and underling pulmonary disease. 4. Labile hypertension/hypertensive heart disease 5. Non compliance 6. Tobacco abuse 7. Anxiety/depression PLAN: Chest pain is very atypical for cardiac etiology. Normal cardiac enzymes and EKG without ischemic changes. Echo with preserved LV function. Once COPD exacerbation has improved, can consider outpatient nuclear stress test if symptoms persist. Would not recommend repeat dobutamine stress test with recent occurrence of tachycardia. In regards to recent findings of atrial tachycardia, would continue her beta sandy at this time. Given her current hypoxia, hesitant to increase dose or adjust beta sandy therapy. Check magnesium level tomorrow with AM labs. These episodes are likely secondary to her current COPD exacerbation and medication treatments (steroids/nebs). Will consider outpatient monitor. If she has further episodes during admission, would discontinue amlodipine in favor of diltiazem for rhythm control. Case to be discussed with Dr. Starr. Will follow as hospital course progresses. (Miracle Munoz PA-C) CARDIOLOGY ATTENDING ADDENDUM: The patient was seen and personally examined. Agree with Miracle Munoz PA-C's findings and plans as documented above. Pt. has been known to be noncompliant in the past and now in the hospital she is being noncompliant with meds and treatment. Currently in NSR. SVT likely to have been related to nebulizer treatments. I would be OK with D/C and outpatient follow-up. If she does follow-up with us, then we will can place an event monitor and decide if she needs additional treatment of SVT. Currently on Coreg, which can be continued for now. (Jaziel Starr, DO)
[2016-09-21] MEDS ORDERED: LEVOFLOXACIN 500 MG TAB PO ONE (11:00)
[2016-09-21] MEDS ORDERED: LVQ250 PO (16:09)
--- NOTE | 2016-09-21 16:15 | Discharge Instructions ---
Discharge Instructions Date of Service Sep 21, 2016. Admission Reason for Admission: Chest Pain, Copd Exacerbation Discharge Discharge Diagnosis / Problem: Chest pain, Acute bronchitis Discharge Goals Goal(s): Improve disease control, Diagnostic testing, Therapeutic intervention Activity Recommendations Activity Limitations: as noted below Exercise/Sports Limitations: gradually increase as tolerated Shower/Bathe: no limitations . Instructions / Follow-Up Instructions / Follow-Up You were admitted with chest pain. You did not have a heart attack. Your chest pain is coming from your bronchitis. You should finish out the course of antibiotics as prescribed for this. You were also found while you were here to have a fast heart rate called atrial tachycardia. The Cloth Examiner Hand saw you and recommended you follow up in their office and you may need to wear an event monitor of your heart for 2 weeks to further evaluate this. It is probably being triggered by your underlying lung disease and from nebulizers and steroids. The steroids were stopped here and then you did not have any further episodes. Please follow up with [facility] within 1-2 weeks. His office will contact you for an appointment Please follow up with Dr. Aleman, Cardiology, within 2 weeks. Please follow up with your PCP within 1 week as scheduled for you. Current Hospital Diet Patient's current hospital diet: AHA Diet (Heart Healthy) Discharge Diet Recommended Diet: AHA Diet (Heart Healthy) Procedures Procedures Performed: Echocardiogram Chest xray Chest CT scan Pending Studies Studies pending at discharge: no Laboratory Results Hemoglobin A1c Test 09/05/16 11:51 Range/Units Estimated Average Glucose 120 mg/dl Hemoglobin A1c 5.8 H 4.5-5.6 % Lipid Panel Test 07/10/16 10:32 Range/Units Triglycerides Level 159 H 0-150 mg/dl Cholesterol Level 171 0-200 mg/dl HDL Cholesterol 39 mg/dl Cholesterol/HDL Ratio 4.4 LDL Cholesterol, Calculated 100 mg/dl Medical Emergencies . Who to Call and When: Medical Emergencies: If at any time you feel your situation is an emergency, please call 911 immediately. . Non-Emergent Contact Non-Emergency issues call your: Primary Care Provider, Cloth Examiner Hand, Manager Analysis Call Non-Emergent contact if: you have a fever, your pain is not controlled, your pain is worsening, your pain is unusual for you, your pain is concerning you, you have any medication questions . . "Provider Documentation" section prepared by Zenia Ewing. . VTE Core Measure Inpt VTE Proph given/why not?: Griffin Goldberg, MARY[facility]'s
--- NOTE | 2016-09-21 16:26 | Discharge Summary ---
Discharge Summary Date of Service Sep 21, 2016. Discharge Summary Admission Date: Sep 19, 2016 at 16:30 Discharge Date: Sep 21, 2016 Discharge Disposition: Home Principal Diagnosis: Chest pain, Acute bronchitis Problems/Secondary Diagnoses: Paroxysmal atrial tachycardia COPD CHronic respiratory failure CAD HTN HLD Suspected Grave's disease Anxiety and depression Abnormal chest xray Pulmonary nodules Nasal septal deviation H/o BCC of nose Insomnia Immunizations: Have You Had Influenza Vaccine: No History of Tetanus Vaccine?: Yes History of Pneumococcal: No History of Hepatitis B Vaccine: No Procedures: Chest CT Chest xray Echocardiogram Consultations: Cardiology Medication Reconciliation New Medications: Levofloxacin (Levofloxacin) 250 Mg Tab 250 MG PO DAILY@11 for 4 Days, #4 TAB Continued Medications: Albuterol Hfa (Ventolin Hfa) 200 Puffs/86492 Mcg Aers 2 PUFFS INH BID, #1 INHALER [id number] (Beano) 1 Tab Tab 2 TABS PO TIDM Amlodipine (Norvasc) 5 Mg Tab 5 MG PO BID, TAB Aripiprazole (Aripiprazole) 5 Mg Tab 5 MG PO DAILY Carvedilol (Coreg) 12.5 Mg Tab 0.5 TAB PO BID for 90 Days, #90 TAB 1 Refill Cholecalciferol (Vitamin D3) 1,000 Unit Tab 1 TAB PO DAILY for 30 Days, #30 TAB 5 Refills Cholecalciferol (D3-50) 50,000 Unit Cap 1 CAP PO 2XWK for 28 Days, #4 CAP 4 Refills MONDAYS AND WEDNESDAYS Clonidine HCl (Clonidine HCl) 0.3 Mg Tab 0.3 MG PO TID Cyanocobalamin (Vitamin B-12) 1,000 Mcg Tab 1000 MCG PO DAILY, TAB Diazepam (Valium) 10 Mg Tab 10 MG PO BID PRN for Anxiety Fluoxetine HCl (Fluoxetine HCl) 20 Mg Cap 20 MG PO QID Fluticasone Prop/Salmeterol (Advair Diskus 250/50 60 Dose) 1 Ea Aerp 1 PUFF INH BID, INHALER Fluticasone Propionate (Nasal) (Flonase Allergy Relief) 50 Mcg/Act Spr 1 SPRAY YUVAL DAILY Hydralazine HCl (Hydralazine HCl) 50 Mg Tab 100 MG PO BID Hydrochlorothiazide (Hctz) 25 Mg Tab 25 MG PO DAILY, TAB Ipratropium-Albuterol (Duoneb) 3 Ml Nebu 1 TREATMENT INH Q4H PRN for SOB/Wheezing, INHA Lorazepam (Lorazepam) 1 Mg Tab 3 MG PO HS Losartan Potassium (Cozaar) 100 Mg Tab 100 MG PO DAILY Misc Natural Products (Green Tea) 1 Tab Tab 1 TAB PO DAILY Multivitamin (Multivitamin) Tab 1 TAB PO DAILY, 0 Refills Promethazine Hcl (Phenergan) 25 Mg Tab 25 MG PO BID PRN for Nausea, TAB Tiotropium [place] (Spiriva Handihaler) 30 Puff/540 Mcg Aerp 1 CAP INH DAILY Zolpidem Tartrate (Zolpidem Tartrate) 10 Mg Tab 10 MG PO HS PRN for Sleep Referrals At Discharge Follow up Referrals: Screen Maker Referral - Within 1-2 Weeks with Tayo Aleman DO Tal[employer] Acquisition Sourcer Referral - Within 1-2 Weeks with Param Vitale PA-C Discharge Exam Feeling better. SOB is improved and she is very happy with the OxyMask here and wants to take it home with her. No further atrial tach on tele Review of Systems: Constitutional: No fever Eyes: No problem reported ENT: + nasal symptoms Respiratory: No shortness of breath Cardiovascular: + chest pain (occasional) Abdomen: No pain Musculoskeletal: No problem reported Genitourinary - Female: No problem reported Neurologic: No problem reported Psychiatric: + anxiety Endocrine: No problem reported Hematologic / Lymphatic: No problem reported Integumentary: No problem reported Physical Exam: General Appearance: no apparent distress, + thin Eyes: normal inspection, sclerae normal ENT: hearing grossly normal Neck: trachea midline Respiratory/Chest: no respiratory distress, no accessory muscle use, + decreased breath sounds (throughout but no wheezing or rales) Cardiovascular: regular rate, rhythm, no edema, no gallop, no murmur Abdomen / GI: normal bowel sounds, non tender, soft, no organomegaly, no pulsatile mass Extremities: no calf tenderness, normal capillary refill, no pedal edema, normal range of motion Neurologic/Psychiatric: alert, oriented x 3 Skin: normal color, warm/dry, no rash Hospital Course 60 y/o female with a history of COPD, CAD, HTN, HLD, recently diagnosed with Grave's disease, anxiety and depression who presented to the ED on 09/19 with fevers, cough, shortness of breath, and 3 days of chest pain. Pt hypoxic on arrival with O2 sat of 88% on room air. Pt was afebrile and other VSS. WBC 15.84. D-dimer 710. CXR shows emphysema and improvement of previous nodular opacities. CTA negative for PE, shows borderline enlarged hilar lymph nodes. Pt was given loading dose of Solu-Medol and Levaquin in ED. COPD exacerbation, Acute bronchitis vs atypical PNA-improved -Admitted to telemetry -O2 by protocol. Cannot use NC due to nasal deformities, using OxyMask. H/o BCC of nose, Moh's procedure and nasal reconstruction -Solu-Medrol 20 mg IV q8h, unlikely pt could tolerate higher dose--> discontinued the steroids as no wheezing and seems to be exacerbating her anxiety and atrial tachycardia -continue Levaquin and finish out 7 day course -DuoNebs -Continue Advair BID, Pulmicort BID and Spiriva Chest pain-atypical, probably related to bronchitis but unclear, Paroxysmal atrial tachycardia at rest on tele -Cardiology consult appreciated--> h/o noncompliance, hesitate to change meds at this time, recommend outpatient event monitor. PAT likely related to underlying lung and possible thyroid disorder -continue beta sandy -troponins negative -EKG unchanged -f/u Cardio as outpatient -last DObutamine stress 2014 was normal, consider repeat stress testing in future if chest pain persists CAD, HTN--medications per patient and outpt records. Difficult to control as per pt, sees Cardiology -Continue Norvasc 5 mg PO bid, Coreg 6.25 mg PO BID, clonidine 0.3 mg PO TID, hydralazine 100 mg PO BID, HCTZ 25 mg PO qd and losartan 100 mg PO qd Anxiety and depression--very anxious here -Continue Abilify 5 mg PO qd, diazepam 10 mg PO BID prn anxiety, and fluoxetine 20 mg PO QID Subclinical hyperthyroidism-seeing Endocrine soon Insomnia -Continue Ativan 3 mg PO qhs Dispo- to home today Total Time Spent: Greater than 30 minutes This includes examination of the patient, discharge planning, medication reconciliation, and communication with other providers. Discharge Instructions Please refer to the electronic Patient Visit Report (Discharge Instructions) for additional information. Follow-Up PCP within 1 week Cardiology within 2 weeks Pulmonology within 2 weeks Additional Copies To RV. Aguila MD; Tayo Aleman, DO; Param Vitale, PAJayceeC
[2016-09-22] MEDS ORDERED: LEVOFLOXACIN 250 MG TAB PO SCH (11:00)
== END 2016-09-21 16:50 | disposition home or self-care (01) | DRG 191 ==
LOC: C.EDB 10:23 → C.MED 16:30 → ENRESERV 16:58
PROVIDERS: ADMIT Hospitalist; ATTEND Family Medicine
DX: J44.1 Chronic obstructive pulmonary disease with (acute) exacerbation (principal); J96.10 Chronic respiratory failure, unspecified whether with hypoxia or hypercapnia; J20.9 Acute bronchitis, unspecified; R07.89 Other chest pain; M95.0 Acquired deformity of nose; R91.8 Other nonspecific abnormal finding of lung field; I48.0 Paroxysmal atrial fibrillation; I25.10 Atherosclerotic heart disease of native coronary artery without angina pectoris; I11.9 Hypertensive heart disease without heart failure; E05.00 Thyrotoxicosis with diffuse goiter without thyrotoxic crisis or storm; M81.0 Age-related osteoporosis without current pathological fracture; G47.00 Insomnia, unspecified; F41.9 Anxiety disorder, unspecified; F32.9 Major depressive disorder, single episode, unspecified; Z66 Do not resuscitate; Z91.14 Patient's other noncompliance with medication regimen; Z53.29 Procedure and treatment not carried out because of patient's decision for other reasons; Z87.891 Personal history of nicotine dependence; Z85.828 Personal history of other malignant neoplasm of skin; Z99.81 Dependence on supplemental oxygen; Z79.51 Long term (current) use of inhaled steroids; Z79.899 Other long term (current) drug therapy

== ENCOUNTER → 2016-12-29 | Outpatient (CLI) | payer OTHER ==
[~2016-12-29] MED LIST changes: -ALBUAER2 INH; +ALPHTAB4 PO; -BUDE180I INH; +CHOLCAP2 PO; +CYAN10005 PO; +FLUT0.15 NAE; +LVQ250 PO; +MISC1TAB74 PO; -OXYC1TAB3 PO; +VNTHFA/IN INH; -VTMD PO
--- NOTE | 2016-12-29 10:58 | DIAGNOSTIC IMAGING REPORT ---
CHEST 2 VIEWS ROUTINE HISTORY: J44.9 Chronic obstructive pulmonary [id number] COMPARISON: Chest CTA 09/19/2016. FINDINGS: The lungs remain hyperexpanded with emphysematous changes. No pneumothorax. No pleural effusions. The heart is normal in size. Interstitial thickening has improved. There is an 11 mm irregular nodule within the right lung apex. This may correspond to the irregular apical abnormality on the prior study. This is unchanged. IMPRESSION: 1. Emphysema. 2. Improvement in the interstitial thickening. No new focal lung consolidations. 4. Stable 11 mm irregular nodule within the right lung apex. Six-month chest CT follow up is recommended to ensure stability. Electronically signed by: Jemal Grijalva M.D. 12/29/2016 10:56 AM Dictated Date/Time: 12/29/2016 10:53 AM
== END | disposition home or self-care (01) ==
LOC: C.RAD 09:55
PROVIDERS: ATTEND Internal Medicine
DX: J44.9 Chronic obstructive pulmonary disease, unspecified (principal)

== ENCOUNTER → 2017-03-03 | Outpatient (CLI) | payer OTHER ==
[~2017-03-03] MED LIST changes: -APR50 PO; +AZIT-57 PO; -CLON-460 PO; +CTP1 PO; -CYAN10005 PO; -HYDR25TA4 PO; -LOSA100T65 PO; -LVQ250 PO
--- NOTE | 2017-03-03 10:47 | DIAGNOSTIC IMAGING REPORT ---
CHEST 2 VIEWS ROUTINE CLINICAL HISTORY: J18.9 [id number] dyspnea COMPARISON STUDY: 01/14/2017 FINDINGS: Improved basilar infiltrative change of the right. Lungs this time are considered clear. Small focus of chronic fibrotic scarring left pulmonary apex and/or nodularity similar to the prior exam. No acute infiltrate at the current time.. IMPRESSION: Emphysematous change. Right lung base is now clear. Unchanging upper lung pulmonary nodularity The above report was generated using voice recognition software. It may contain grammatical, syntax or spelling errors. Electronically signed by: Tanner Gordon M.D. 03/03/2017 10:46 AM Dictated Date/Time: 03/03/2017 10:44 AM
== END | disposition home or self-care (01) ==
LOC: C.RAD1850 10:30
PROVIDERS: ATTEND Internal Medicine
DX: J18.9 Pneumonia, unspecified organism (principal)

== ENCOUNTER → 2017-06-14 | Outpatient (CLI) | payer OTHER ==
[2017-06-14 12:18] LABS: BASO % 0.4 %; BASO ABS # 0.02 K/uL (0-0.2); EOS % 1.7 %; EOS ABS # 0.08 K/uL (0-0.5); HEMATOCRIT 39.7 % (37-47); HEMOGLOBIN 13.3 g/dL (12.0-16.0); LYMPH ABS # 1.73 K/uL (1.2-3.4); MEAN CELL VOLUME 89.6 fL (80-100); MEAN CORPUSCULAR HGB CONC 33.5 g/dl (32-36); MONO ABS # 0.29 K/uL (0.11-0.59); NEUT % 55.9 %; NEUT ABS # 2.68 K/uL (1.4-6.5); PLATELET COUNT 297 K/uL (130-400); RED CELL DISTRIBUTION WIDTH SD 46.1 fL (36.4-46.3)
[2017-06-14 13:34] LABS: T3 FREE 2.73 pg/ml (2.30-4.20)
[2017-06-14 17:02] LABS: ALBUMIN 4.1 gm/dl (3.4-5.0); ALT/SGPT 23 U/L (12-78); AST/SGOT 26 U/L (15-37); BLOOD UREA NITROGEN 11 mg/dl (7-18); CALCIUM 9.2 mg/dl (8.5-10.1); CARBON DIOXIDE 28 mmol/L (21-32); CHOLESTEROL 182 mg/dl (0-200); CREATININE 0.81 mg/dl (0.60-1.20); GLUCOSE 95 mg/dl (70-99); SODIUM 138 mmol/L (136-145)
[2017-06-14 17:10] LABS: ALKALINE PHOSPHATASE 54 U/L (45-117); LDL CHOLESTEROL CALCULATED 93 mg/dl; TOTAL PROTEIN 7.1 gm/dl (6.4-8.2)
== END | disposition home or self-care (01) ==
LOC: C.LAB1850 10:42
PROVIDERS: ATTEND Internal Medicine
DX: R94.6 Abnormal results of thyroid function studies (principal); I10 Essential (primary) hypertension; D72.829 Elevated white blood cell count, unspecified; E55.9 Vitamin D deficiency, unspecified

== ENCOUNTER 2019-03-15 12:50 | Inpatient (IN) ==
[2019-03-15] MEDS ORDERED: ALBUTEROL 0.083% NEBU SOLN 3 ML VIAL INH STA (13:19)
--- NOTE | 2019-03-15 13:54 | XRay Report ---
XR chest 1V portable CLINICAL HISTORY: Dyspnea COMPARISON STUDY: 10/26/2018 FINDINGS: The chest is emphysematous configuration. There is no focal pulmonary consolidation. There is no failure. There are no large pleural effusions.[ IMPRESSION: Hyperinflation. No evidence of acute parenchymal consolidation ACT 112: Negative or not required by law. Electronically signed by: Medardo Mustafa M.D. 03/15/2019 1:53 PM
[2019-03-15 14:42] LABS: Basophils # (auto) 0.02 K/uL (0-0.2); Basophils % (auto) 0.2 %; Eosinophils # (auto) 0.03 K/uL (0-0.5); Eosinophils % (auto) 0.3 %; Hematocrit (blood only) 36.6 % (37-47); Hemoglobin 12.2 g/dL (12.0-16.0); Immature Granulocytes # (auto) 0.03 K/uL (0.00-0.02); Immature Granulocytes % (auto) 0.3 %; Lymphocytes # (auto) 0.73 K/uL (1.2-3.4); Lymphocytes % (auto) 7.5 %; Mean Corpuscular Hemoglobin 30.8 pg (25-34); Mean Corpuscular Hgb Conc 33.3 g/dL (32-36); Mean Corpuscular Volume 92.4 fL (80-100); Mean Platelet Volume 9.4 fL (7.4-10.4); Monocytes # (auto) 0.59 K/uL (0.11-0.59); Monocytes % (auto) 6.1 %; Neutrophils # (auto) 8.33 K/uL (1.4-6.5); Neutrophils % (auto) 85.6 %; Platelet Count 264 K/uL (130-400); RDW Coefficient of Variation 14.2 % (11.5-14.5); RDW Standard Deviation 48.3 fL (36.4-46.3); Red Blood Count 3.96 M/uL (4.2-5.4); White Blood Count 9.73 K/uL (4.8-10.8)
[2019-03-15 14:52] LABS: Partial Thromboplastin Ratio 1.1; Partial Thromboplastin Time 30.6 Seconds (21.0-31.0); Prothrombin Time 10.3 Seconds (9.0-12.0)
[2019-03-15 15:02] LABS: Alanine Aminotransferase 14 U/L (12-78); Albumin Level 3.5 gm/dl (3.4-5.0); Aspartate Aminotransferase 14 U/L (15-37); BUN Creatinine Ratio 23.9 (10-20); Blood Urea Nitrogen 17 mg/dl (7-18); Carbon Dioxide 26 mmol/L (21-32); Chloride 106 mmol/L (98-107); Est GFR (African American) 106.1; Est GFR (Non-African American) 91.6; Glucose 94 mg/dl (70-99); Sodium 138 mmol/L (136-145)
[2019-03-15 15:11] LABS: Alkaline Phosphatase 73 U/L (45-117); Bilirubin,Total 0.5 mg/dl (0.2-1); Globulin 3.5 gm/dl (2.5-4.0); Troponin I 0.116 ng/ml (0-0.045)
[2019-03-15] MEDS ORDERED: ASPIRIN CHEW 324 MG PO STA (15:27)
--- NOTE | 2019-03-15 16:36 | History & Physical Report ---
Date of Service March 15, 2019 Assessment & Plan (1) Atypical chest pain: Chest pain is very atypical for cardiac ischemia. Suspect it may be musculoskeletal or related to the patient's recently discovered lung neoplasm. However, the patient's troponin is mildly elevated. Therefore we will place her in monitored observation. Follow cardiac enzymes. Check 2D echo. Consideration of stress testing, can be deferred to outpatient. Continue medications for blood pressure as described below. Start low-dose aspirin. For pain control, can try as needed hydrocodone. I do see she was given a prescription for this in the past as well per PDMP. (2) Primary malignant neoplasm of left upper lobe of lung: Patient is to follow with outpatient oncology. She tells me she has not started any treatment yet. Will defer to further work-up as an outpatient after discharge. (3) Chronic obstructive pulmonary disease: Patient is on inhaled medications which we will continue. I do not feel that she has a acute exacerbation at this time. (4) Anxiety: Continue Ativan and Valium as per outpatient. I do see she gets regular refills on this on PDMP. (5) Hypertension: Patient on multiple antihypertensive treat eluding hydrochlorothiazide, Coreg, and Norvasc. I can continue this. May improve with treatment of her p ain and anxiety issues. History of Present Illness Primary Care Provider: Vida Malone MD This is a 63-year-old female with past medical history of severe COPD and possible bronchogenic carcinoma that presents today complaining of chest pain. Patient is very anxious and somewhat difficult historian. Patient tells me that she has ongoing issues with chronic pain. She states that she is been having chest pain which is worsened since recent diagnosis of a left suprahilar lung mass. She notes that the pain is left of her sternum. It is tender to touch and hurts with cough or any movement. It also hurts with deep inspiration. There is no relation to activity. She has no associated symptoms such as fever, diaphoresis, lightheadedness, or palpitations. She tells me that she uses Tylenol at home and last about 2 hours but the pain returns. I did review some of her old patient records. She tells me that she is not a candidate for chemotherapy secondary to her low body mass. She is following with an oncologist for possible immunotherapy but is to have a CT scan early next month prior to the appointment. I note that she has been on. Duragesic patch but had to be stopped secondary to side effects. She was also given oxycodone in the past by her primary care provider. At the time of my evaluation the patient's O2 sat is 92% on room air. She tells me she only uses home oxygen as needed. She does appear very anxious and her blood pressure is elevated 160/121. Allergies Allergy/AdvReac Type Severity Reaction Status Date / Time lamotrigine Allergy Intermediate RASH, Verified 02/25/19 10:36 NAUSEA levofloxacin [From Levaquin] Allergy Intermediate Rash Verified 02/25/19 10:36 amoxicillin Allergy Unknown UNKN Verified 02/25/19 10:36 clavulanic acid Allergy Unknown UNKN Verified 02/25/19 10:36 gabapentin Allergy Unknown UNKN Verified 02/25/19 10:36 ketamine Allergy Unknown claims it Verified 02/25/19 10:36 will cause sudden Penicillins Allergy Verified 02/25/19 10:36 aclidinium AdvReac Severe Racing Verified 02/25/19 10:36 [From Jossy Knight] Heart Home Medications Home Medications Medication Instructions Recorded Confirmed Type multivitamin 1 tab PO QAM #0 04/09/09 03/15/19 History aripiprazole 5 mg PO QAM #0 12/27/14 03/15/19 History lorazepam 3 mg PO HS #0 12/27/14 03/15/19 History amlodipine 5 mg PO BID #0 tab 04/15/15 03/15/19 History ondansetron HCl 8 mg tablet 8 mg PO Q8H PRN 08/27/18 03/15/19 History hydralazine 50 mg PO BID 10/26/18 03/15/19 History Advair Diskus 500 mcg-50 mcg/dose 1 puffs INH BID #60 ea NS 11/22/18 03/15/19 Rx powder for inhalation miscellaneous medical supply #1 ea 11/28/18 01/18/19 Rx albuterol sulfate 90 mcg/actuation 2 puff INHALATION Q4H PRN #1 12/04/18 03/15/19 Rx aerosol inhaler inhaler carvedilol 25 mg tablet 25 mg PO BID #0 tab 12/11/18 03/15/19 History fluticasone furoate 100 1 inh INHALATION DAILY #1 inhaler 12/31/18 03/15/19 Rx mcg/actuation blister powder for inhalation clonidine HCl 0.3 mg tablet 0.3 mg PO BID tab 01/18/19 03/15/19 History diazepam 10 mg tablet 5 mg PO TID #0 tab 01/18/19 03/15/19 History fluoxetine 20 mg capsule 40 mg PO QAM #0 cap 01/18/19 03/15/19 History ipratropium-albuterol 0.5 mg-3 3 ml INHALATION Q4H PRN #180 ml 01/30/19 03/15/19 Rx mg(2.5 mg base)/3 mL nebulization soln hydrochlorothiazide 25 mg tablet 25 mg PO QAM 02/21/19 03/15/19 History codeine 10 mg-guaifenesin 100 mg/5 5 ml PO Q6H PRN #236 ml 02/22/19 03/15/19 Rx mL oral liquid calcium carbonate-mag hydroxid 2 tab PO Q6H 03/15/19 03/15/19 History [Rolaids] cholecalciferol (vitamin D3) 1,000 unit PO QDL 03/15/19 03/15/19 History ergocalciferol (vitamin D2) 50,000 units PO MWF@1800 03/15/19 03/15/19 History tobramycin 1 drops OP DAILY PRN 03/15/19 03/15/19 History Past Med/Surg History Medical History Abnormal finding on thyroid function test (Acute) Acquired deviated nasal septum (Acute) Acquired nasal deformity (Acute) Adenitis (Acute) Altered mental status (Acute) Anxiety (Chronic) Anxiety (Chronic) Anxiety (Acute) Arthralgia of multiple sites (Acute) Arthritis (Chronic) Asthma (Chronic) Atrial tachycardia Back pain (Acute) Benzodiazepine dependence (Acute) Brain aneurysm (Resolved) 2016 [place] [facility] [place] Bronchitis (Acute) CAD (coronary artery disease) (Chronic) CAD (coronary artery disease) (Chronic) Cerebral aneurysm (Acute) Cervicalgia (Acute) Chest pain (Acute) Chronic back pain (Chronic) Chronic chest pain (Chronic) Chronic obstructive pulmonary disease (Acute) Chronic pain (Acute) Chronic reflux esophagitis (Acute) COPD (chronic obstructive pulmonary disease) (Chronic) COPD exacerbation (Acute) Coronary artery disease (Acute) Cough (Acute) Cystic kidney disease (Chronic) Dental abscess (Acute) Depression (Chronic) Depression (Acute) Deviated nasal septum (Chronic) Disc disorder of cervical region (Acute) Facial cellulitis (Acute) GERD (gastroesophageal reflux disease) (Chronic) Headache (Acute) Hepatic cyst (Chronic) Hepatic cyst (Acute) History of basal cell carcinoma (Acute) History of benign ovarian tumor (Resolved) History of GI bleed (Resolved) History of nicotine dependence (Acute) History of skin cancer (Resolved) Basal cell carcinoma - Right side of nose History of uterine cancer (Resolved) S/P GRISELDA BSO Hx of supraventricular tachycardia (Chronic) Hyperlipidemia (Acute) Hypertension (Chronic) Hypertension (Chronic) Hypertension (Acute) Hypoxia (Acute) Insomnia (Chronic) Insomnia (Acute) Intravenous infiltration (Acute) IV infiltration (Acute) Leukocytosis (Acute) Lumbar radiculopathy (Acute) Lung cancer (Chronic) Non small cell lung cancer 07/02/18 Lung mass (Chronic) Maxillary anomaly (Acute) Migraine headache (Acute) Migraines (Chronic) Myelopathy (Acute) Myocardial Infarction (Chronic) "I'VE HAD SEVERAL SILENT HEART ATTACKS" - MOST RECENT FEW MONTHS AGO? - FOLLOWS W/ DR. SUBRAMANIAN Non-small cell lung cancer (Acute) Obstructive sleep apnea (Acute) OCD (obsessive compulsive disorder) (Chronic) On home oxygen therapy (Chronic) 2-3 LPM CONTINUOUS Osteopenia (Chronic) Osteopenia (Acute) Osteoporosis (Chronic) Peripheral neuropathy (Chronic) Peripheral neuropathy (Acute) Poor historian (Chronic) MAJORITY OF HISTORY OBTAINED FROM PREVIOUS CHARTING Post-operative pain (Acute) PTSD (post-traumatic stress disorder) (Chronic) PTSD (post-traumatic stress disorder) (Chronic) Pulmonary nodule (Acute) Reflux esophagitis (Chronic) Seizure (Resolved) 2016 - POST OP BRAIN ANEURYSM SURGERY Sleep apnea (Chronic) NO CPAP Sleep disturbances (Acute) Swelling of right upper extremity (Acute) Thyroid nodule (Chronic) Thyroid nodule (Acute) Uncontrolled hypertension (Acute) Underweight (Chronic) Underweight (Acute) Upper respiratory infection (Acute) URI (upper respiratory infection) (Acute) Vasovagal episode (Acute) Vitamin D deficiency (Acute) Surgical History H/O tubal ligation (Resolved) History of anesthesia reaction (Chronic) "ketamine will kill me" - reports multiple episodes of v-fib w/ ketamine. History of appendectomy (Resolved) History of bronchoscopy (Resolved) History of cardiac cath (Resolved) > 10 YEARS AGO - [facility] - [facility] - NO STENTS/ANGIOPLASTY - FOLLOWS W/ DR. FIGUEROA History of colonoscopy (Resolved) History of esophagogastroduodenoscopy (EGD) (Resolved) History of exploratory laparotomy (Resolved) Due to gangrene ovarian cyst; History of hysterectomy (Resolved) History of Mohs micrographic surgery for skin cancer (Resolved) History of tooth extraction (Resolved) History of total abdominal hysterectomy and bilateral salpingo-oophorectomy (Resolved) Family History Father Family history of reaction to anesthesia UNK Cardiac disorder Cancer Hypertension Mother Cardiac disorder Thyroid cancer Breast cancer Deafness Sister Multiple allergies Grandfather Cardiac disorder Grandfather Cardiac disorder Unknown History of bleeding disorder Social History Preferred Language: Malay Communication Ability: Effective Visual Impairment: No Limitations Hearing Ability: Normal Ship Fitter Required: No Beliefs That Will Affect Care: None marital status: Current Living Situation: Alone current occupational status: retired current occupation: SENIOR MOBILE APPLICATION DEVELOPER in past; Other Information That Helps Us Care for You: No Feels Safe at Home: Yes Safety Concerns: Feels Safe At This Time Smoking Status: Former smoker Tobacco Type: cigarettes ; Age Started Using [employer] accounting support specialist: 11 ; Cigarettes Per Day: 10 ; Second Hand Exposure: Yes ; Hx Alcohol Use: No Hx Substance Use: No caffeine: Yes (1 pot/day;) during the past year weight has: decreased > 10 lbs Review of Systems Constitutional: + fatigue, + anorexia and + weight loss; no fever and no chills Respiratory: + cough, + dyspnea on exertion and + pain with cough; no sputum production Cardiovascular: + chest pain and + dyspnea; no radiating jaw, neck or arm pain Gastrointestinal: no nausea, no vomiting, no constipation and no diarrhea/loose stools Genitourinary: no dysuria, no difficulty urinating, no urinary frequency, no urinary hesitancy and no urinary urgency Musculoskeletal: + back pain, + radicular pain and + myalgia; no swelling Integumentary: as per Subjective / HPI Psychiatric: as per Subjective / HPI Physical Exam Constitutional: + cachectic and + frail appearing; no acute distress Neck: trachea midline, no thyromegaly Respiratory: Auscultation: + diminished lung sounds and + rhonchi; no crackles, no rales and no wheezes Cardiovascular: Rate/Rhythm: regular rhythm and + tachycardic Heart Sounds: normal S1 and normal S2 Chest wall tenderness with mild palpation just to the left of the sternum Gastrointestinal (Abdomen): Inspection/Auscultation: abdomen normal to inspection Percussion/Palpation: abdomen soft; abdomen nontender, no guarding, abdomen not rigid and no hepatosplenomegaly Musculoskeletal: no cyanosis or clubbing, extremities motor strength 5/5 Results & Data Vital Signs (Past 12 Hours) Vital Signs Temp Pulse Pulse Resp BP Pulse Ox 03/15/19 15:46 96 H 23 160/121 H 93 03/15/19 13:34 111 H 20 92 03/15/19 13:02 92 03/15/19 12:52 36.5 C 105 H 18 160/113 H 94 Laboratory Results CBC is unremarkable with normal white count. Patient's BMP also unremarkable. Troponin is 0.116. EKG shows sinus tachycardia with a rate of 120. There is evidence of LVH. Evidence of left atrial enlargement. Nonspecific ST-T wave changes. Diagnostic Findings XR chest 1V portable CLINICAL HISTORY: Dyspnea COMPARISON STUDY: 10/26/2018 FINDINGS: The chest is emphysematous configuration. There is no focal pulmonary consolidation. There is no failure. There are no large pleural effusions.[ IMPRESSION: Hyperinflation. No evidence of acute parenchymal consolidation PG Care Time/CCT Total # of Minutes Spent Total Time Spent with Patient: Total time spent is greater than 50% in coordination of care (as documented) at patient's floor/unit and/or counseling patient:
[2019-03-15] MEDS ORDERED: ONDANSETRON 8 MG TABLET PO PRN (17:35)
[2019-03-15] MEDS ORDERED: HYDROCODONE/ACETAMOPHEN 5/325MG TAB PO PRN (17:35)
[2019-03-15] MEDS ORDERED: ALBUT/IPRATROP 3MG/0.5MG NEB 3 ML VIAL INH PRN (17:35)
[2019-03-15] MEDS ORDERED: GUAIFENESIN/CODEINE 200MG/20MG 10ML UDC PO PRN (17:35)
[2019-03-15] MEDS ORDERED: CALCIUM CARBONATE MAG HYDROXID PO SCH (17:35)
[2019-03-15] MEDS ORDERED: ALBUTEROL HFA 8 GM INHALER INH PRN (17:35)
[2019-03-15] MEDS ORDERED: ERGOCALCIFEROL 50,000 UNITS CAP PO SCH (18:00)
[2019-03-15] MEDS ORDERED: ENOXAPARIN INJ 40 MG/0.4 ML SYR SQ SCH (19:00)
--- NOTE | 2019-03-15 20:29 | Emergency Department Note ---
Entered by Yvon Chapman acting as a scribe for ED Provider Note CHIEF COMPLAINT: Respiratory problems HISTORY OF PRESENT ILLNESS: The patient is a 63 year old female who presents to the Emergency Room with complaints of constant shortness of breath that has been ongoing for the past couple of days. The patient states she has some pleuritic chest pain and notes it is worse when she takes a deep breath. The patient adds that she has a cough and general body aches as well and nothing has helped relieve the pain. The patient also has been running intermittent fevers that have been as high as 103F, however she has been taking Tylenol which has helped reduce her fever. The patient endorses some associated nausea but denies any vomiting. The patient has a history of lung cancer in the left lung so she does use supplemental oxygen at home. The patient reports that she was treated with multiple antibiotics last month for pneumonitis but her symptoms persist. The patient took her last dose of Tylenol at 12:00. The patient also took 2 Valium around 12:30 for an anxiety attack. Pt denies LOC, headache, chills, diaphoresis, visual changes, neck pain, vomiting, abdominal pain, back pain, melena, hematochezia, urinary symptoms, numbness, weakness, lymphadenopathy, rash, or other complaints. REVIEW OF SYSTEMS: See HPI for pertinent positives and negatives. A total of ten systems were reviewed and were otherwise negative. PMHx/PSHx: Lung cancer, Anxiety, HTN, HLD, CAD, COPD, Brain aneurysm, PNA, GERD, GI bleed, Depression, Chronic pain SOCIAL HISTORY: Patient lives at home. PHYSICAL EXAM: GENERAL: Awake, alert, very anxious-appearing HENT: Normocephalic, atraumatic. Oropharynx unremarkable. EYES: Normal conjunctiva. Sclera non-icteric. NECK: Inspection normal. Non-tender. Supple. No nuchal rigidity. FROM. No masses. RESPIRATORY: Diminished breath sounds bilaterally but CTAB. No wheezes. No rales. Normal respiratory effort. CARDIAC: Tachycardic rate. Normal rhythm. No murmurs. No rubs. Extremities warm and well perfused. Pulses equal. No JVD. GI: Soft, non-distended. No tenderness to palpation. No rebound or guarding. No masses. RECTAL: Deferred. MUSCULOSKELETAL: Atraumatic. Chest examination reveals no tenderness. The back is symmetrical on inspection without obvious abnormality. There is no CVA tenderness to palpation. No joint edema. LOWER EXTREMITIES: Calves are equal size bilaterally and non-tender. No edema. No discoloration. NEURO: Normal sensorium. No sensory or motor deficits noted. SKIN: No rash or jaundice noted. EMERGENCY DEPARTMENT COURSE: 1317: The patient was evaluated in room A03, and a complete history and physical examination were performed. 1529: I reevaluated the patient and she is resting in bed. I updated her on test results. We also discussed the treatment plan and she is agreeable. 1533: I spoke to Dr. Dumont - [facility] Hospitalist about the patient's case. He agreed to accept the patient for further evaluation. MEDICAL DECISION MAKING: A3 Triage Nursing notes reviewed and agree them. Additional history obtained from the family. The patient's history was concerning for chest pain. Differential diagnosis: Etiologies such as cardiac ischemia, aortic dissection, pulmonary embolism, pneumonia, pneumothorax, musculoskeletal, infections, pericarditis, myocarditis, esophageal rupture, gastrointestinal, as well as others were entertained. Physical examination: As above. ER treatment provided: Patient declined analgesia Cardiac monitoring Oral aspirin On reassessment the patient felt better. Diagnostic interpretation by me: The electrocardiogram was negative for pathologic change. The labs revealed an unremarkable CBC and chemistry panel. The patient's troponin is elevated concerning for possible cardiac source for the left-sided chest pain. Imaging studies: Chest x-ray negative for acute process. The patient has left-sided chest pain and elevated troponin. No ST elevation on ECG. Further management in the hospital will be necessary. Patient was updated. She was in agreement. Consultation: A consultation was placed with the hospitalist. The case was discussed and diagnostics were reviewed. The patient was evaluated in the ER for further treatment. IMPRESSION: Left sided chest pain Elevated troponin PLAN: Being evaluated by the Hospitalist The scribe's documentation has been prepared under my direction and personally reviewed by me in its entirety. I confirm that the note above accurately reflects all work, treatment, procedures, and medical decision making performed by me. Impression & Plan Left-sided chest pain, Elevated troponin Past Med/Surg History Medical History Abnormal finding on thyroid function test (Acute) Acquired deviated nasal septum (Acute) Acquired nasal deformity (Acute) Adenitis (Acute) Altered mental status (Acute) Anxiety (Chronic) Anxiety (Chronic) Anxiety (Acute) Arthralgia of multiple sites (Acute) Arthritis (Chronic) Asthma (Chronic) Atrial tachycardia Back pain (Acute) Benzodiazepine dependence (Acute) Brain aneurysm (Resolved) [place] [facility] [place] Bronchitis (Acute) CAD (coronary artery disease) (Chronic) CAD (coronary artery disease) (Chronic) Cerebral aneurysm (Acute) Cervicalgia (Acute) Chest pain (Acute) Chronic back pain (Chronic) Chronic chest pain (Chronic) Chronic obstructive pulmonary disease (Acute) Chronic pain (Acute) Chronic reflux esophagitis (Acute) COPD (chronic obstructive pulmonary disease) (Chronic) COPD exacerbation (Acute) Coronary artery disease (Acute) Cough (Acute) Cystic kidney disease (Chronic) Dental abscess (Acute) Depression (Chronic) Depression (Acute) Deviated nasal septum (Chronic) Disc disorder of cervical region (Acute) Facial cellulitis (Acute) GERD (gastroesophageal reflux disease) (Chronic) Headache (Acute) Hepatic cyst (Chronic) Hepatic cyst (Acute) History of basal cell carcinoma (Acute) History of benign ovarian tumor (Resolved) History of GI bleed (Resolved) History of nicotine dependence (Acute) History of skin cancer (Resolved) Basal cell carcinoma - Right side of nose History of uterine cancer (Resolved) S/P GRISELDA BSO Hx of supraventricular tachycardia (Chronic) Hyperlipidemia (Acute) Hypertension (Chronic) Hypertension (Chronic) Hypertension (Acute) Hypoxia (Acute) Insomnia (Chronic) Insomnia (Acute) Intravenous infiltration (Acute) IV infiltration (Acute) Leukocytosis (Acute) Lumbar radiculopathy (Acute) Lung cancer (Chronic) Non small cell lung cancer 07/02/18 Lung mass (Chronic) Maxillary anomaly (Acute) Migraine headache (Acute) Migraines (Chronic) Myelopathy (Acute) Myocardial Infarction (Chronic) "I'VE HAD SEVERAL SILENT HEART ATTACKS" - MOST RECENT FEW MONTHS AGO? - FOLLOWS W/ DR. SUBRAMANIAN Non-small cell lung cancer (Acute) Obstructive sleep apnea (Acute) OCD (obsessive compulsive disorder) (Chronic) On home oxygen therapy (Chronic) 2-3 LPM CONTINUOUS Osteopenia (Chronic) Osteopenia (Acute) Osteoporosis (Chronic) Peripheral neuropathy (Chronic) Peripheral neuropathy (Acute) Poor historian (Chronic) MAJORITY OF HISTORY OBTAINED FROM PREVIOUS CHARTING Post-operative pain (Acute) PTSD (post-traumatic stress disorder) (Chronic) PTSD (post-traumatic stress disorder) (Chronic) Pulmonary nodule (Acute) Reflux esophagitis (Chronic) Seizure (Resolved) 2016 - POST OP BRAIN ANEURYSM SURGERY Sleep apnea (Chronic) NO CPAP Sleep disturbances (Acute) Swelling of right upper extremity (Acute) Thyroid nodule (Chronic) Thyroid nodule (Acute) Uncontrolled hypertension (Acute) Underweight (Chronic) Underweight (Acute) Upper respiratory infection (Acute) URI (upper respiratory infection) (Acute) Vasovagal episode (Acute) Vitamin D deficiency (Acute) Surgical History H/O tubal ligation (Resolved) History of anesthesia reaction (Chronic) "ketamine will kill me" - reports multiple episodes of v-fib w/ ketamine. History of appendectomy (Resolved) History of bronchoscopy (Resolved) History of cardiac cath (Resolved) > 10 YEARS AGO - [facility] - CP - NO STENTS/ANGIOPLASTY - FOLLOWS W/ DR. FIGUEROA History of colonoscopy (Resolved) History of esophagogastroduodenoscopy (EGD) (Resolved) History of exploratory laparotomy (Resolved) Due to gangrene ovarian cyst; History of hysterectomy (Resolved) History of Mohs micrographic surgery for skin cancer (Resolved) History of tooth extraction (Resolved) History of total abdominal hysterectomy and bilateral salpingo-oophorectomy (Resolved) Family History Father Family history of reaction to anesthesia UNK Cardiac disorder Cancer Hypertension Mother Cardiac disorder Thyroid cancer Breast cancer Deafness Sister Multiple allergies Grandfather Cardiac disorder Grandfather Cardiac disorder Unknown History of bleeding disorder Social History Preferred Language: [place]ian Communication Ability: Effective Visual Impairment: No Limitations Hearing Ability: Normal Document Control Associate Required: No Beliefs That Will Affect Care: None marital status: Current Living Situation: Alone current occupational status: retired current occupation: COLOR MIXER in past; Other Information That Helps Us Care for You: No Feels Safe at Home: Yes Safety Concerns: Feels Safe At This Time Smoking Status: Former smoker Tobacco Type: cigarettes ; Age Started Using Tobacco: 11 ; Cigarettes Per Day: 10 ; Second Hand Exposure: Yes ; Hx Alcohol Use: No Hx Substance Use: No caffeine: Yes (1 pot/day;) during the past year weight has: decreased > 10 lbs Results & Data Vital Signs Vital Signs - 24 hr 03/15/19 12:52 03/15/19 13:02 03/15/19 13:34 Temperature 36.5 C Temperature Source Oral Pulse Rate 105 H Pulse Rate [Right Radial] 111 H Pulse Rate from SpO2 Sensor Respiratory Rate 18 20 Respiratory Effort / Characteristics Non-Labored Spontaneous Blood Pressure 160/113 H Blood Pressure Mean 128 Blood Pressure Position Sitting Pulse Oximetry 94 92 92 Oxygen Delivery Method Room Air Room Air Sepsis Recent Fever Within 48 Hours No Sepsis New/Unexplained Change in Mental Status No Sepsis Action Taken by Nursing No Action Required 03/15/19 15:46 Temperature Temperature Source Pulse Rate 96 H Pulse Rate [Right Radial] Pulse Rate from SpO2 Sensor 92 H Respiratory Rate 23 Respiratory Effort / Characteristics Blood Pressure 160/121 H Blood Pressure Mean 136 Blood Pressure Position Pulse Oximetry 93 Oxygen Delivery Method Room Air Sepsis Recent Fever Within 48 Hours Sepsis New/Unexplained Change in Mental Status Sepsis Action Taken by Half-Way Medications Current Medication List: was personally reviewed by me Laboratory Data Attestation: I reviewed the patient's lab results. Result diagrams: 03/15/19 14:17 03/15/19 14:17 Lab Results 03/15/19 03/15/19 03/15/19 Range/Units 14:17 14:17 14:17 WBC 9.73 (4.8-10.8) K/uL RBC 3.96 L (4.2-5.4) M/uL Hgb 12.2 (12.0-16.0) g/dL Hct 36.6 L (37-47) % MCV 92.4 (80-100) fL MCH 30.8 (25-34) pg MCHC 33.3 (32-36) g/dL RDW Std Deviation 48.3 H (36.4-46.3) fL RDW Coeff of Zaida 14.2 (11.5-14.5) % Plt Count 264 (130-400) K/uL MPV 9.4 (7.4-10.4) fL Immature Gran % (Auto) 0.3 % Neut % (Auto) 85.6 % Lymph % (Auto) 7.5 % [place] % (Auto) 6.1 % Eos % (Auto) 0.3 % Baso % (Auto) 0.2 % Immature Gran # (Auto) 0.03 H (0.00-0.02) K/uL Neut # (Auto) 8.33 H (1.4-6.5) K/uL Lymph # (Auto) 0.73 L (1.2-3.4) K/uL [place] # (Auto) 0.59 (0.11-0.59) K/uL Eos # (Auto) 0.03 (0-0.5) K/uL Baso # (Auto) 0.02 (0-0.2) K/uL PT 10.3 (9.0-12.0) Seconds INR 1.0 (0.9-1.1) APTT 30.6 (21.0-31.0) Seconds PTT Ratio 1.1 Sodium 138 (136-145) mmol/L Potassium 4.0 (3.5-5.1) mmol/L Chloride 106 (98-107) mmol/L Carbon Dioxide 26 (21-32) mmol/L Anion Gap 6.0 (3-11) BUN 17 (7-18) mg/dl Creatinine 0.70 (0.6-1.2) mg/dl Est Cr Clr Drug Dosing Not Reportable Est GFR ( Amer) 106.1 Est GFR (Non-Af Amer) 91.6 BUN/Creatinine Ratio 23.9 H (10-20) Glucose 94 (70-99) mg/dl Calcium 9.0 (8.5-10.1) mg/dl Magnesium 2.0 (1.8-2.4) mg/dl Total Bilirubin 0.5 (0.2-1) mg/dl AST 14 L (15-37) U/L ALT 14 (12-78) U/L Alkaline Phosphatase 73 (45-117) U/L Troponin I 0.116 H* (0-0.045) ng/ml Total Protein 7.0 (6.4-8.2) gm/dl Albumin 3.5 (3.4-5.0) gm/dl Globulin 3.5 (2.5-4.0) gm/dl Albumin/Globulin Ratio 1.0 (0.9-2) Administered Medications Enoxaparin Sodium (Lovenox) 40 mg SQ Q24H LUANN Stop: 04/14/19 18:59 Last Admin: 03/15/19 18:52 Dose: Not Given Documented by: [id number] Discontinued Medications Albuterol (Ventolin 0.083% 2.5mg/3ml) 2.5 mg INH NOW STA Stop: 03/15/19 13:20 Last Admin: 03/15/19 13:33 Dose: 2.5 mg Documented by: [id number] Aspirin (Aspirin) 324 mg PO NOW STA Stop: 03/15/19 15:28 Last Admin: 03/15/19 15:46 Dose: 324 mg Documented by: [id number] Non-Formulary Medication (Calcium Carbonate-Mag Hydroxid [Rolaids]) 2 tab PO Q6H LUANN Stop: 04/14/19 17:34 Last Admin: 03/15/19 18:40 Dose: Not Given Documented by: [id number] Imaging Data Radiologist's Impression: Radiology results as stated below per my review and the radiologist's interpretation: XR chest 1V portable CLINICAL HISTORY: Dyspnea COMPARISON STUDY: 10/26/2018 FINDINGS: The chest is emphysematous configuration. There is no focal pulmonary consolidation. There is no failure. There are no large pleural effusions.[ IMPRESSION: Hyperinflation. No evidence of acute parenchymal consolidation ACT 112: Negative or not required by law. Electronically signed by: Medardo Mustafa M.D. 03/15/2019 1:53 PM ECG Data Attestation: I personally reviewed and interpreted this ECG as follows: Indication: + SOB/dyspnea Rate (beats per minute): 120 Rhythm: sinus tachycardia ECG Intervals/blocks: + Normal QRS ECG Mcdonough: + Normal ECG ST segments: + Nonspecific ST abnormalities; no ST elevation ECG Findings: + Q waves (Septal) Blood Pressure Blood Pressure Findings: Elevated blood pressure Blood Pressure Disposition: further management by hospitalist Discharge Plan Visit Data *Final* Discharge Date/Time: 03/15/19 17:09 Chief Complaint: Respiratory Problems Stated Complaint: GENERAL PAIN, FEVER 103 LAST NIGHT, TROUBLE BREATH ED Provider: Moris Rain Discharge Problem: Left-sided chest pain, Elevated troponin Patient Disposition: Admitted As Inpatient Discharge Instructions Interventions: ED Discharge Assessment Last Done: 03/15/19 17:09 The scribe's documentation has been prepared under my direction and personally reviewed by me in its entirety. I confirm that the note above accurately reflects all work, treatment, procedures, and medical decision making performed by me.
[2019-03-15] MEDS ORDERED: LORazepam 1 MG TAB PO SCH (21:00)
[2019-03-15 21:29] LABS: Appearance Urine Clear (Clear); Bacteria Urine Automated Negative (Negative); Bilirubin Urine Negative (Negative); Blood Urine Trace (Negative); Color Urine Yellow; Glucose Urine UA Negative (Negative); Ketones Urine Negative (Negative); Leukocyte Esterase Urine Trace (Negative); Nitrite Urine Negative (Negative); Protein Urine Negative (Negative); RBC Urine Automated 0-4 /hpf (0-4); Specific Gravity Urine 1.014 (1.000-1.030); Urobilinogen Urine Negative (Negative); pH Urine 5.5 (4.5-7.5)
[2019-03-15] MEDS: FLUTICASONE/SALMETEROL (ADVAIR) 500/50 INH 14 PUFF INH SCH (21:46)
[2019-03-15] MEDS: HydrALAZINE TAB 50 MG TAB PO SCH (21:47)
[2019-03-15] MEDS: cloNIDine HCL 0.3 MG TAB PO SCH (21:48)
[2019-03-15] MEDS: carvediloL 25 MG TAB PO SCH (21:59)
[2019-03-15] MEDS: AMLODIPINE BESYLATE 5 MG TAB PO SCH (21:59)
[2019-03-15] MEDS: diazePAM 5 MG TABLET PO SCH (22:00)
[2019-03-15] MEDS: ACETAMINOPHEN 325 MG TAB PO PRN (22:19)
[2019-03-16 07:18] LABS: Basophils # (auto) 0.01 K/uL (0-0.2); Basophils % (auto) 0.1 %; Eosinophils # (auto) 0.08 K/uL (0-0.5); Eosinophils % (auto) 1.2 %; Hematocrit (blood only) 37.7 % (37-47); Hemoglobin 12.5 g/dL (12.0-16.0); Immature Granulocytes # (auto) 0.01 K/uL (0.00-0.02); Immature Granulocytes % (auto) 0.1 %; Lymphocytes # (auto) 0.59 K/uL (1.2-3.4); Lymphocytes % (auto) 8.8 %; Mean Corpuscular Hemoglobin 30.3 pg (25-34); Mean Corpuscular Hgb Conc 33.2 g/dL (32-36); Mean Corpuscular Volume 91.5 fL (80-100); Mean Platelet Volume 9.4 fL (7.4-10.4); Monocytes # (auto) 0.44 K/uL (0.11-0.59); Monocytes % (auto) 6.5 %; Neutrophils # (auto) 5.61 K/uL (1.4-6.5); Neutrophils % (auto) 83.3 %; Platelet Count 238 K/uL (130-400); RDW Coefficient of Variation 14.4 % (11.5-14.5); Red Blood Count 4.12 M/uL (4.2-5.4); White Blood Count 6.74 K/uL (4.8-10.8)
[2019-03-16 07:55] LABS: BUN Creatinine Ratio 25.6 (10-20); Creatinine Clr Calc Pharmacy 42.4 ml/min; Est GFR (African American) 100.9; Potassium 3.6 mmol/L (3.5-5.1)
[2019-03-16] MEDS: carvediloL 25 MG TAB PO SCH ×2 (08:54→21:23)
[2019-03-16] MEDS: ARIPiprazole 5 MG TAB PO SCH (08:54)
[2019-03-16] MEDS: FLUOXETINE HCL 20 MG CAP PO SCH (08:59)
[2019-03-16] MEDS: FLUTICASONE/SALMETEROL (ADVAIR) 500/50 INH 14 PUFF INH SCH ×2 (09:00→21:22)
[2019-03-16] MEDS: hydroCHLOROthiazide 25 MG TAB PO SCH (09:02)
[2019-03-16] MEDS: MULTIVITAMIN TAB PO SCH (09:02)
[2019-03-16] MEDS: HydrALAZINE TAB 50 MG TAB PO SCH ×2 (09:02→21:23)
[2019-03-16] MEDS: diazePAM 5 MG TABLET PO SCH ×4 (09:18→21:23)
[2019-03-16] MEDS: AMLODIPINE BESYLATE 5 MG TAB PO SCH ×2 (09:26→21:23)
[2019-03-16] MEDS: cloNIDine HCL 0.3 MG TAB PO SCH ×2 (09:26→21:23)
[2019-03-16] MEDS ORDERED: diazePAM 5 MG TABLET PO ONE (09:39)
[2019-03-16] MEDS: ASPIRIN 81 MG ECTAB PO SCH (09:58)
[2019-03-16] MEDS ORDERED: ADENOSINE IV SOLN 3 MG/ML 2 ML VIAL IV STA ×2 (10:01→10:52)
[2019-03-16] MEDS ORDERED: LORazepam 1 MG/2 ML VIAL IV STA (10:09)
[2019-03-16] MEDS ORDERED: METOPROLOL TARTRATE 1 MG/ML VIAL IV STA (10:10)
[2019-03-16] MEDS ORDERED: METOPROLOL TARTRATE 1 MG/ML VIAL IV ONE (10:15)
[2019-03-16] MEDS ORDERED: LORazepam 2 MG/4 ML VIAL ONE (10:16)
[2019-03-16] MEDS: ADENOSINE IV SOLN 3 MG/ML 2 ML VIAL IV ONE ×2 (10:21→10:47)
[2019-03-16] MEDS ORDERED: AMIODARONE IV BOLUS / DRIP IV STA ×2 (10:24→10:39)
[2019-03-16] MEDS ORDERED: AMIODARONE 150MG / 100ML D5W IV ONE (10:27)
[2019-03-16] MEDS ORDERED: AMIODARONE / D5W 150 MG/100 ML BAG IV STA ×2 (10:28→10:39)
[2019-03-16] MEDS ORDERED: AMIODARONE 360MG / 200ML D5W IV ONE (10:38)
--- NOTE | 2019-03-16 10:39 | Hospitalist Progress Note ---
Date of Service March 16, 2019 Assessment & Plan (1) PSVT (paroxysmal supraventricular tachycardia): four separate episodes today broke with vagal maneuvers, Adenosine 6mg, 12mg then amiodarone bolus and drip provided patient with anxiety to calm her down and decrease adrenergic activity appreciate cardiology consult from Dr. Starr she does have a history of paroxysmal atrial arrhythmia, followed with Dr. Aleman in the past make patient a full admission (2) Atypical chest pain: chest pain and pressure with anxiety, SVT 12 lead EKG when having the chest pain with minimal ST depression in V6 troponin did peak at 0.5, trended down after that Cardiology following (3) Primary malignant neoplasm of left upper lobe of lung: Patient is to follow with outpatient oncology, Dr. Aly Dempsey she did complete chemotherapy per her daughter and the tumor responded oncologist wants her to go on immunotherapy but she is refusing currently (4) Chronic obstructive pulmonary disease: Patient is on inhaled medications which we will continue. no wheezing on exam, no signs of exacerbation (5) Anxiety: Continue Ativan and Valium as per outpatient. I do see she gets regular refills on this on PDMP. (6) Hypertension: Patient on multiple antihypertensive treat eluding hydrochlorothiazide, Coreg, and Norvasc. continue Subjective patient with a lot of anxiety this morning, felt like she could not breath reviewed chart, troponin up to 0.5, then down to 0.3 having active chest pain, left side of chest and left shoulder, upper back c/o difficulty breathing 12 lead EKG with some subtle ST depression in the lateral leads, no ST elevation went into SVT around 10am with rates in 170-180 range converted to sinus rhythm with vagal maneuvers, however, only lasted a few minutes Adenosine 6mg IV given, broke her to sinus rhythm for about 2 minutes then went back into SVT 180's Adenosine 12mg IV given, broke again to sinus rhythm for a few minutes but then back to SVT Lopressor 5mg IV given, HR down to the 100's sinus rhythm discussed with Dr. Starr, will continue with Amiodarone bolus and drip 45 minutes of critical care time with patient, from 945am to 1030am Review of Systems Review of Systems: All systems reviewed & are unremarkable except as noted in HPI & below Respiratory: + dyspnea Cardiovascular: + chest pain, + chest pain at rest and + dyspnea; no palpitations and no edema Gastrointestinal: no abdominal pain, no nausea, no vomiting, no constipation and no diarrhea/loose stools Psychiatric: + anxiety and + panic attacks Physical Exam Constitutional: well developed, + acute distress and + thin Eyes: PERRL, conjunctivae normal, anicteric sclerae ENMT: external ear and nose normal, oropharynx normal Neck: trachea midline, no thyromegaly Respiratory: + labored breathing and + uses accessory muscles Auscultation: lungs clear to auscultation bilaterally; no crackles, no rales, no rhonchi and no wheezes Cardiovascular: Rate/Rhythm: regular rhythm and + tachycardic Heart Sounds: normal S1 and normal S2; no murmur Vessels: no JVD Extremities: normal capillary refill; no edema Gastrointestinal (Abdomen): normal bowel sounds, soft, nontender, no hepatosplenomegaly Musculoskeletal: no cyanosis or clubbing, extremities motor strength 5/5 Skin: no rashes, warm and dry Neurologic: patellar DTR's 2+ bilat, sensation intact and PERRL, EOMI, accommodation nl, no face palsy, no dysarthria Psychiatric: Orientation: alert and oriented x 3 Apperance: appropriately dressed Affect: + anxious affect Mood: + anxious mood Lymphatic: no cervical or axillary lymphadenopathy Results & Data Vital Signs (Past 12 Hours) Vital Signs Temp Pulse Pulse Resp BP BP BP 03/16/19 10:25 188 H 139/86 03/16/19 08:00 37.0 C 101 H 19 114/77 03/16/19 04:33 36.6 C 69 16 143/80 H 03/15/19 23:06 36.8 C 81 19 138/84 Pulse Ox 03/16/19 10:25 03/16/19 08:00 91 03/16/19 04:33 92 03/15/19 23:06 91 Laboratory Results Laboratory Results - last 24 hr 03/16/19 03/16/19 03/16/19 00:33 07:00 07:00 WBC 6.74 RBC 4.12 L Hgb 12.5 Hct 37.7 MCV 91.5 MCH 30.3 MCHC 33.2 RDW Std Deviation 48.0 H RDW Coeff of Zaida 14.4 Plt Count 238 MPV 9.4 Immature Gran % (Auto) 0.1 Neut % (Auto) 83.3 Lymph % (Auto) 8.8 [place] % (Auto) 6.5 Eos % (Auto) 1.2 Baso % (Auto) 0.1 Immature Gran # (Auto) 0.01 Neut # (Auto) 5.61 Lymph # (Auto) 0.59 L [place] # (Auto) 0.44 Eos # (Auto) 0.08 Baso # (Auto) 0.01 Sodium 139 Potassium 3.6 Chloride 105 Carbon Dioxide 27 Anion Gap 7.0 BUN 19 H Creatinine 0.73 Est Cr Clr Drug Dosing 42.4 Est GFR ( Amer) 100.9 Est GFR (Non-Af Amer) 87.0 BUN/Creatinine Ratio 25.6 H Glucose 145 H Calcium 9.0 Troponin I 0.398 H* TSH 03/16/19 03/16/19 07:00 11:06 WBC RBC Hgb Hct MCV MCH MCHC RDW Std Deviation RDW Coeff of Zaida Plt Count MPV Immature Gran % (Auto) Neut % (Auto) Lymph % (Auto) [place] % (Auto) Eos % (Auto) Baso % (Auto) Immature Gran # (Auto) Neut # (Auto) Lymph # (Auto) [place] # (Auto) Eos # (Auto) Baso # (Auto) Sodium Potassium Chloride Carbon Dioxide Anion Gap BUN Creatinine Est Cr Clr Drug Dosing Est GFR ( Amer) Est GFR (Non-Af Amer) BUN/Creatinine Ratio Glucose Calcium Troponin I 0.236 H* TSH 0.763 Medications Administered Current Inpatient Medications Acetaminophen (Tylenol) 650 mg PO Q4H PRN PRN Reason: Pain or Fever Stop: 04/14/19 17:34 Last Admin: 03/16/19 19:30 Dose: 650 mg Documented by: Hydrocodone Bitart/Acetaminophen ([place] 5/325) 1 tab PO Q6H PRN PRN Reason: Pain Stop: 03/29/19 17:34 Albuterol (Duoneb) 3 ml INH Q4H PRN PRN Reason: Shortness Of Breath Stop: 04/14/19 17:34 Albuterol (Ventolin Hfa) 2 puffs INH Q4H PRN PRN Reason: shortness of breath or wheezin Stop: 04/15/19 15:21 Amlodipine Besylate (Norvasc) 5 mg PO BID LUANN Stop: 04/14/19 20:59 Last Admin: 03/16/19 21:23 Dose: Not Given Documented by: Aripiprazole (Abilify) 5 mg PO QAM [facility] Stop: 04/15/19 08:59 Last Admin: 03/16/19 08:54 Dose: Not Given Documented by: Aspirin (Ecotrin Ectab) 81 mg PO QAM [facility] Stop: 04/15/19 08:59 Last Admin: 03/16/19 09:58 Dose: 81 mg Documented by: Carvedilol (Coreg) 25 mg PO BID [facility] Stop: 04/14/19 20:59 Last Admin: 03/16/19 21:23 Dose: Not Given Documented by: Clonidine HCl (Catapress) 0.3 mg PO BID [facility] Stop: 04/14/19 20:59 Last Admin: 03/16/19 21:23 Dose: Not Given Documented by: Diazepam (Valium) 5 mg PO TID [facility] Stop: 04/14/19 20:59 Last Admin: 03/16/19 21:23 Dose: Not Given Documented by: Fluoxetine HCl (Prozac) 40 mg PO QAM [facility] Stop: 04/15/19 08:59 Last Admin: 03/16/19 08:59 Dose: Not Given Documented by: Guaifenesin/Codeine Phosphate (Robitussin-Ac Sugar Free) 5 ml PO Q6H PRN PRN Reason: cough Stop: 04/14/19 17:34 Heparin Sodium (Porcine) (Heparin Sodium (Porcine)) 5,000 units SC Q12 [facility] Stop: 04/15/19 20:59 Last Admin: 03/16/19 21:23 Dose: Not Given Documented by: Hydralazine HCl (Apresoline) 50 mg PO BID [facility] Stop: 04/14/19 20:59 Last Admin: 03/16/19 21:23 Dose: Not Given Documented by: Hydrochlorothiazide (Hctz) 25 mg PO QAM [facility] Stop: 04/15/19 08:59 Last Admin: 03/16/19 09:02 Dose: 25 mg Documented by: Amiodarone HCl/Dextrose (Nexterone / D5w) 360 mg in 200 mls @ 16.667 mls/hr IV .Q12H [facility] Stop: 04/15/19 16:25 Last Admin: 03/16/19 16:14 Dose: 0.5 mg/min, 16.7 mls/hr Documented by: Lorazepam (Ativan) 2 mg PO HS [facility] Stop: 04/15/19 20:59 Last Admin: 03/16/19 21:23 Dose: 2 mg Documented by: Multivitamins (Multivitamin Tab) 1 tab PO QAM [facility] Stop: 04/15/19 08:59 Last Admin: 03/16/19 09:02 Dose: 1 tab Documented by: Ondansetron HCl (Zofran Tab) 8 mg PO Q8H PRN PRN Reason: Nausea Stop: 04/14/19 17:34 Fluticasone/Salmeterol (Advair Diskus 500/50) 1 puffs INH BID [facility] Stop: 04/14/19 20:59 Last Admin: 03/16/19 21:22 Dose: 1 puffs Documented by: Vitamin D (Vitamin D3) 1,000 units PO QDL [facility] Stop: 04/15/19 11:29 Last Admin: 03/16/19 12:49 Dose: Not Given Documented by: PG Care Time/CCT Total # of Minutes Spent Total Time Spent: 60 Total Time Spent with Patient: Total time spent is greater than 50% in coordination of care (as documented) at patient's floor/unit and/or counseling patient: Critical Care Time: Yes Total Critical Care Time: 45 Prolonged Care Time Prolonged Care Time: No
[2019-03-16] MEDS ORDERED: dilTIAZem HCL 125 MG in DEXTROSE 5% 100 ML IV SCH (10:45)
[2019-03-16] MEDS ORDERED: AMIODARONE / D5W 360 MG/200 ML BAG IV SCH ×2 (10:45→16:39)
[2019-03-16] MEDS: AMIODARONE / D5W 360 MG/200 ML BAG IV SCH ×3 (10:45→16:14)
--- NOTE | 2019-03-16 10:49 | Cardiology Consultation ---
Date of Consultation March 16, 2019 Assessment & Plan (1) Atypical chest pain: (2) Anxiety: (3) Primary malignant neoplasm of left upper lobe of lung: (4) PSVT (paroxysmal supraventricular tachycardia): The patient has been started on amiodarone infusion and for now I would continue this antiarrhythmic. In the long-term however, due to her underlying lung disease and neoplasm the amiodarone may cause problems with pulmonary toxicity. I believe she has chronic chest pain. Her borderline elevated troponins I believe are stress related and not due to acute coronary syndrome. Her echocardiogram shows severe LVH but preserved left ventricular systolic function. The LV cavity size is small and may indicate that she is dehydrated and may require some IV fluids. We will follow along with you during her hospital stay. History of Present Illness Attending Physician: Stephane Cr, History of Present Illness This is a 63-year-old female with a history of adenocarcinoma of the lung who has been treated with radiation, chemotherapy and was considered for immunotherapy but for some reason that treatment was never given. The patient has a history of anxiety as well as chronic pain including chest pain. She was admitted with heart palpitations and after admission has been noted to have runs of SVT with high heart rates. She was given metoprolol and on 2 occasions given adenosine which broke the arrhythmia for a few minutes but then it returned. She was not hemodynamically unstable. In 2018 she had a negative pharmacologic nuclear stress test. She has a history of severe COPD and tobacco abuse. No prior history of ischemic cardiomyopathy or heart failure. She does have chronic pain of her back as well as chest. After admission her cardiac markers are borderline elevated most likely due to strain rather than acute coronary syndrome. Allergies Allergy/AdvReac Type Severity Reaction Status Date / Time lamotrigine Allergy Intermediate RASH, Verified 02/25/19 10:36 NAUSEA levofloxacin [From Levaquin] Allergy Intermediate Rash Verified 02/25/19 10:36 amoxicillin Allergy Unknown UNKN Verified 02/25/19 10:36 clavulanic acid Allergy Unknown UNKN Verified 02/25/19 10:36 gabapentin Allergy Unknown UNKN Verified 02/25/19 10:36 ketamine Allergy Unknown claims it Verified 02/25/19 10:36 will cause sudden Penicillins Allergy Verified 02/25/19 10:36 aclidinium AdvReac Severe Racing Verified 02/25/19 10:36 [From Jossy Knight] Heart Home Medications Home Medications Medication Instructions Recorded Confirmed Type multivitamin 1 tab PO QAM #0 04/09/09 03/15/19 History aripiprazole 5 mg PO QAM #0 12/27/14 03/15/19 History lorazepam 3 mg PO HS #0 12/27/14 03/15/19 History amlodipine 5 mg PO BID #0 tab 04/15/15 03/15/19 History ondansetron HCl 8 mg tablet 8 mg PO Q8H PRN 08/27/18 03/15/19 History hydralazine 50 mg PO BID 10/26/18 03/15/19 History Advair Diskus 500 mcg-50 mcg/dose 1 puffs INH BID #60 ea NS 11/22/18 03/15/19 Rx powder for inhalation miscellaneous medical supply #1 ea 11/28/18 01/18/19 Rx albuterol sulfate 90 mcg/actuation 2 puff INHALATION Q4H PRN #1 12/04/18 03/15/19 Rx aerosol inhaler inhaler carvedilol 25 mg tablet 25 mg PO BID #0 tab 12/11/18 03/15/19 History fluticasone furoate 100 1 inh INHALATION DAILY #1 inhaler 12/31/18 03/15/19 Rx mcg/actuation blister powder for inhalation clonidine HCl 0.3 mg tablet 0.3 mg PO BID tab 01/18/19 03/15/19 History diazepam 10 mg tablet 5 mg PO TID #0 tab 01/18/19 03/15/19 History fluoxetine 20 mg capsule 40 mg PO QAM #0 cap 01/18/19 03/15/19 History ipratropium-albuterol 0.5 mg-3 3 ml INHALATION Q4H PRN #180 ml 01/30/19 03/15/19 Rx mg(2.5 mg base)/3 mL nebulization soln hydrochlorothiazide 25 mg tablet 25 mg PO QAM 02/21/19 03/15/19 History codeine 10 mg-guaifenesin 100 mg/5 5 ml PO Q6H PRN #236 ml 02/22/19 03/15/19 Rx mL oral liquid calcium carbonate-mag hydroxid 2 tab PO Q6H 03/15/19 03/15/19 History [Rolaids] cholecalciferol (vitamin D3) 1,000 unit PO QDL 03/15/19 03/15/19 History ergocalciferol (vitamin D2) 50,000 units PO MWF@1800 03/15/19 03/15/19 History tobramycin 1 drops OP DAILY PRN 03/15/19 03/15/19 History Patient History Medical History Abnormal finding on thyroid function test (Acute) Acquired deviated nasal septum (Acute) Acquired nasal deformity (Acute) Adenitis (Acute) Altered mental status (Acute) Anxiety (Chronic) Anxiety (Chronic) Anxiety (Acute) Arthralgia of multiple sites (Acute) Arthritis (Chronic) Asthma (Chronic) Atrial tachycardia Back pain (Acute) Benzodiazepine dependence (Acute) Brain aneurysm (Resolved) 2016 [facility] - S/P COIL Bronchitis (Acute) CAD (coronary artery disease) (Chronic) CAD (coronary artery disease) (Chronic) Cerebral aneurysm (Acute) Cervicalgia (Acute) Chest pain (Acute) Chronic back pain (Chronic) Chronic chest pain (Chronic) Chronic obstructive pulmonary disease (Acute) Chronic pain (Acute) Chronic reflux esophagitis (Acute) COPD (chronic obstructive pulmonary disease) (Chronic) COPD exacerbation (Acute) Coronary artery disease (Acute) Cough (Acute) Cystic kidney disease (Chronic) Dental abscess (Acute) Depression (Chronic) Depression (Acute) Deviated nasal septum (Chronic) Disc disorder of cervical region (Acute) Facial cellulitis (Acute) GERD (gastroesophageal reflux disease) (Chronic) Headache (Acute) Hepatic cyst (Chronic) Hepatic cyst (Acute) History of basal cell carcinoma (Acute) History of benign ovarian tumor (Resolved) History of GI bleed (Resolved) History of nicotine dependence (Acute) History of skin cancer (Resolved) Basal cell carcinoma - Right side of nose History of uterine cancer (Resolved) S/P GRISELDA BSO Hx of supraventricular tachycardia (Chronic) Hyperlipidemia (Acute) Hypertension (Chronic) Hypertension (Chronic) Hypertension (Acute) Hypoxia (Acute) Insomnia (Chronic) Insomnia (Acute) Intravenous infiltration (Acute) IV infiltration (Acute) Leukocytosis (Acute) Lumbar radiculopathy (Acute) Lung cancer (Chronic) Non small cell lung cancer 07/02/18 Lung mass (Chronic) Maxillary anomaly (Acute) Migraine headache (Acute) Migraines (Chronic) Myelopathy (Acute) Myocardial Infarction (Chronic) "I'VE HAD SEVERAL SILENT HEART ATTACKS" - MOST RECENT FEW MONTHS AGO? - FOLLOWS W/ DR. SUBRAMANIAN Non-small cell lung cancer (Acute) Obstructive sleep apnea (Acute) OCD (obsessive compulsive disorder) (Chronic) On home oxygen therapy (Chronic) 2-3 LPM CONTINUOUS Osteopenia (Chronic) Osteopenia (Acute) Osteoporosis (Chronic) Peripheral neuropathy (Chronic) Peripheral neuropathy (Acute) Poor historian (Chronic) MAJORITY OF HISTORY OBTAINED FROM PREVIOUS CHARTING Post-operative pain (Acute) PTSD (post-traumatic stress disorder) (Chronic) PTSD (post-traumatic stress disorder) (Chronic) Pulmonary nodule (Acute) Reflux esophagitis (Chronic) Seizure (Resolved) 2016 - POST OP BRAIN ANEURYSM SURGERY Sleep apnea (Chronic) NO CPAP Sleep disturbances (Acute) Swelling of right upper extremity (Acute) Thyroid nodule (Chronic) Thyroid nodule (Acute) Uncontrolled hypertension (Acute) Underweight (Chronic) Underweight (Acute) Upper respiratory infection (Acute) URI (upper respiratory infection) (Acute) Vasovagal episode (Acute) Vitamin D deficiency (Acute) Surgical History H/O tubal ligation (Resolved) History of anesthesia reaction (Chronic) "ketamine will kill me" - reports multiple episodes of v-fib w/ ketamine. History of appendectomy (Resolved) History of bronchoscopy (Resolved) History of cardiac cath (Resolved) > 10 YEARS AGO - [facility] - CP - NO STENTS/ANGIOPLASTY - FOLLOWS W/ DR. FIGUEROA History of colonoscopy (Resolved) History of esophagogastroduodenoscopy (EGD) (Resolved) History of exploratory laparotomy (Resolved) Due to gangrene ovarian cyst; History of hysterectomy (Resolved) History of Mohs micrographic surgery for skin cancer (Resolved) History of tooth extraction (Resolved) History of total abdominal hysterectomy and bilateral salpingo-oophorectomy (Resolved) Family History Father Family history of reaction to anesthesia UNK Cardiac disorder Cancer Hypertension Mother Cardiac disorder Thyroid cancer Breast cancer Deafness Sister Multiple allergies Grandfather Cardiac disorder Grandfather Cardiac disorder Unknown History of bleeding disorder Social History Preferred Language: Czech Communication Ability: Effective Visual Impairment: No Limitations Hearing Ability: Normal Psychological Assistant Required: No Beliefs That Will Affect Care: None marital status: Current Living Situation: Alone current occupational status: retired 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 Physical Exam Physical Exam: General: no acute distress and stated age Head: normocephalic, no masses, lesions, tenderness or abnormalities Eyes: conjunctiva are pink and non-injected, sclera clear Neck: supple, no adenopathy, no bruits, normal jugular venous pulse, no hepatojugular reflux Chest: normal shape and normal respiratory effort Lungs: clear to auscultation and percussion Cardiac Exam: - regular rate & rhythm, no murmurs gallops or rubs - normal S1, normal S2 Pulses: 2(+) throughout Abdomen: abdomen soft, non-tender, no abnormal masses and no hepatosplenomegaly Musculoskeletal: no gait disturbance, no joint inflammation, no deforming arthritis Extremities: no edema and no cyanosis Neuro: grossly normal exam Results & Data Vital Signs (Past 12 Hours) Vital Signs Temp Pulse Pulse Resp BP BP BP 03/16/19 10:25 188 H 139/86 03/16/19 08:00 37.0 C 101 H 19 114/77 03/16/19 04:33 36.6 C 69 16 143/80 H 03/15/19 23:06 36.8 C 81 19 138/84 Pulse Ox 03/16/19 10:25 03/16/19 08:00 91 03/16/19 04:33 92 03/15/19 23:06 91 Laboratory Results Laboratory Results - last 24 hr 03/15/19 03/15/19 03/15/19 14:17 14:17 14:17 WBC 9.73 RBC 3.96 L Hgb 12.2 Hct 36.6 L MCV 92.4 MCH 30.8 MCHC 33.3 RDW Std Deviation 48.3 H RDW Coeff of Zaida 14.2 Plt Count 264 MPV 9.4 Immature Gran % (Auto) 0.3 Neut % (Auto) 85.6 Lymph % (Auto) 7.5 [place] % (Auto) 6.1 Eos % (Auto) 0.3 Baso % (Auto) 0.2 Immature Gran # (Auto) 0.03 H Neut # (Auto) 8.33 H Lymph # (Auto) 0.73 L [place] # (Auto) 0.59 Eos # (Auto) 0.03 Baso # (Auto) 0.02 PT 10.3 INR 1.0 APTT 30.6 PTT Ratio 1.1 Sodium 138 Potassium 4.0 Chloride 106 Carbon Dioxide 26 Anion Gap 6.0 BUN 17 Creatinine 0.70 Est Cr Clr Drug Dosing Not Reportable Est GFR ( Amer) 106.1 Est GFR (Non-Af Amer) 91.6 BUN/Creatinine Ratio 23.9 H Glucose 94 Calcium 9.0 Magnesium 2.0 Total Bilirubin 0.5 AST 14 L ALT 14 Alkaline Phosphatase 73 Troponin I 0.116 H* Total Protein 7.0 Albumin 3.5 Globulin 3.5 Albumin/Globulin Ratio 1.0 Urine Color Urine Appearance Urine pH Ur Specific [place] Urine Protein Urine Glucose (UA) Urine Ketones Urine Blood Urine Nitrite Urine Bilirubin Urine Urobilinogen Ur Leukocyte Esterase Urine WBC (Auto) Urine RBC (Auto) U Hyaline Cast (Auto) U Epithel Cells (Auto) Urine Bacteria (Auto) 03/15/19 03/15/19 03/16/19 18:52 20:55 00:33 WBC RBC Hgb Hct MCV MCH MCHC RDW Std Deviation RDW Coeff of Zaida Plt Count MPV Immature Gran % (Auto) Neut % (Auto) Lymph % (Auto) [place] % (Auto) Eos % (Auto) Baso % (Auto) Immature Gran # (Auto) Neut # (Auto) Lymph # (Auto) [place]gett # (Auto) Eos # (Auto) Baso # (Auto) PT INR APTT PTT Ratio Sodium Potassium Chloride Carbon Dioxide Anion Gap BUN Creatinine Est Cr Clr Drug Dosing Est GFR ( Amer) Est GFR (Non-Af Amer) BUN/Creatinine Ratio Glucose Calcium Magnesium Total Bilirubin AST ALT Alkaline Phosphatase Troponin I 0.506 H* 0.398 H* Total Protein Albumin Globulin Albumin/Globulin Ratio Urine Color Yellow Urine Appearance Clear Urine pH 5.5 Ur Specific [place] 1.014 Urine Protein Negative Urine Glucose (UA) Negative Urine Ketones Negative Urine Blood Trace H Urine Nitrite Negative Urine Bilirubin Negative Urine Urobilinogen Negative Ur Leukocyte Esterase Trace H Urine WBC (Auto) 5-10 H Urine RBC (Auto) 0-4 U Hyaline Cast (Auto) 1-5 U Epithel Cells (Auto) 10-20 H Urine Bacteria (Auto) Negative 03/16/19 03/16/19 03/16/19 07:00 07:00 07:00 WBC 6.74 RBC 4.12 L Hgb 12.5 Hct 37.7 MCV 91.5 MCH 30.3 MCHC 33.2 RDW Std Deviation 48.0 H RDW Coeff of Zaida 14.4 Plt Count 238 MPV 9.4 Immature Gran % (Auto) 0.1 Neut % (Auto) 83.3 Lymph % (Auto) 8.8 [place]gett % (Auto) 6.5 Eos % (Auto) 1.2 Baso % (Auto) 0.1 Immature Gran # (Auto) 0.01 Neut # (Auto) 5.61 Lymph # (Auto) 0.59 L [place] # (Auto) 0.44 Eos # (Auto) 0.08 Baso # (Auto) 0.01 PT INR APTT PTT Ratio Sodium 139 Potassium 3.6 Chloride 105 Carbon Dioxide 27 Anion Gap 7.0 BUN 19 H Creatinine 0.73 Est Cr Clr Drug Dosing 42.4 Est GFR ( Amer) 100.9 Est GFR (Non-Af Amer) 87.0 BUN/Creatinine Ratio 25.6 H Glucose 145 H Calcium 9.0 Magnesium Total Bilirubin AST ALT Alkaline Phosphatase Troponin I 0.236 H* Total Protein Albumin Globulin Albumin/Globulin Ratio Urine Color Urine Appearance Urine pH Ur Specific [place] Urine Protein Urine Glucose (UA) Urine Ketones Urine Blood Urine Nitrite Urine Bilirubin Urine Urobilinogen Ur Leukocyte Esterase Urine WBC (Auto) Urine RBC (Auto) U Hyaline Cast (Auto) U Epithel Cells (Auto) Urine Bacteria (Auto) Diagnostic Findings Echocardiogram reveals severe LVH with preserved left ventricular systolic function but evidence of diastolic dysfunction. No wall motion abnormalities that would suggest ischemic heart disease. Medications Administered Current Inpatient Medications Acetaminophen (Tylenol) 650 mg PO Q4H PRN PRN Reason: Pain or Fever Stop: 04/14/19 17:34 Last Admin: 03/15/19 22:19 Dose: 650 mg Documented by: Hydrocodone Bitart/Acetaminophen (Johnson 5/325) 1 tab PO Q6H PRN PRN Reason: Pain Stop: 03/29/19 17:34 Albuterol (Ventolin Hfa) 2 puffs INH Q4H PRN PRN Reason: shortness of breath or wheezin Stop: 04/14/19 17:34 Albuterol (Duoneb) 3 ml INH Q4H PRN PRN Reason: Shortness Of Breath Stop: 04/14/19 17:34 Amlodipine Besylate (Norvasc) 5 mg PO BID [facility] Stop: 04/14/19 20:59 Last Admin: 03/16/19 09:26 Dose: Not Given Documented by: Aripiprazole (Abilify) 5 mg PO QAM [facility] Stop: 04/15/19 08:59 Last Admin: 03/16/19 08:54 Dose: Not Given Documented by: Aspirin (Ecotrin Ectab) 81 mg PO QAM [facility] Stop: 04/15/19 08:59 Last Admin: 03/16/19 09:58 Dose: 81 mg Documented by: Carvedilol (Coreg) 25 mg PO BID [facility] Stop: 04/14/19 20:59 Last Admin: 03/16/19 08:54 Dose: Not Given Documented by: Clonidine HCl (Catapress) 0.3 mg PO BID [facility] Stop: 04/14/19 20:59 Last Admin: 03/16/19 09:26 Dose: Not Given Documented by: Diazepam (Valium) 5 mg PO TID [facility] Stop: 04/14/19 20:59 Last Admin: 03/16/19 09:27 Dose: Not Given Documented by: Enoxaparin Sodium (Lovenox) 40 mg SQ Q24H [facility] Stop: 04/14/19 18:59 Last Admin: 03/15/19 18:52 Dose: Not Given Documented by: Fluoxetine HCl (Prozac) 40 mg PO QAM [facility] Stop: 04/15/19 08:59 Last Admin: 03/16/19 08:59 Dose: Not Given Documented by: Guaifenesin/Codeine Phosphate (Robitussin-Ac Sugar Free) 5 ml PO Q6H PRN PRN Reason: cough Stop: 01/26/20 17:34 Hydralazine HCl (Apresoline) 50 mg PO BID [facility] Stop: 04/14/19 20:59 Last Admin: 03/16/19 09:02 Dose: 50 mg Documented by: Hydrochlorothiazide (Hctz) 25 mg PO QAM [facility] Stop: 04/15/19 08:59 Last Admin: 03/16/19 09:02 Dose: 25 mg Documented by: Amiodarone HCl/Dextrose (Nexterone / D5w) 360 mg in 200 mls @ 33.333 mls/hr IV .Q6H [facility] Stop: 03/16/19 16:29 Last Admin: 03/16/19 10:47 Dose: Not Given Documented by: Amiodarone HCl/Dextrose (Nexterone / D5w) 360 mg in 200 mls @ 16.667 mls/hr IV .Q12H [facility] Stop: 04/15/19 16:25 Lorazepam (Ativan) 1 mg PO HS [facility] Stop: 04/14/19 20:59 Last Admin: 03/15/19 22:19 Dose: 1 mg Documented by: Multivitamins ([facility]ivitamin Tab) [facility] [place] Stop: 04/15/19 08:59 Last Admin: 03/16/19 09:02 Dose: 1 tab Documented by: Ondansetron HCl (Zofran Tab) 8 mg PO Q8H PRN PRN Reason: Nausea Stop: 04/14/19 17:34 Fluticasone/Salmeterol (Advair Diskus 500/50) 1 puffs INH BID [facility] Stop: 04/14/19 20:59 Last Admin: 03/16/19 09:00 Dose: 1 puffs Documented by: Vitamin D (Vitamin D3) 1,000 units PO QDL [facility] Stop: 04/15/19 11:29
[2019-03-16] MEDS: ACETAMINOPHEN 325 MG TAB PO PRN ×2 (12:48→19:30)
[2019-03-16] MEDS: CHOLECALCIFEROL 1,000 UNITS TAB PO SCH (12:49)
[2019-03-16] MEDS ORDERED: ALBUTEROL INH PRN (15:22)
[2019-03-16] MEDS: LORazepam 1 MG TAB PO SCH (21:23)
[2019-03-16] MEDS: HEPARIN SOD 5,000 UNIT/0.5 ML VIAL SC SCH (21:23)
[2019-03-17] MEDS: ACETAMINOPHEN 325 MG TAB PO PRN ×2 (03:45→19:32)
[2019-03-17] MEDS: AMIODARONE / D5W 360 MG/200 ML BAG IV SCH (03:52)
[2019-03-17] MEDS ORDERED: KETOROLAC 30 MG/ML VIAL IV ONE (06:40)
[2019-03-17] MEDS: FLUOXETINE HCL 20 MG CAP PO SCH (08:00)
[2019-03-17] MEDS: hydroCHLOROthiazide 25 MG TAB PO SCH (08:01)
[2019-03-17] MEDS: HydrALAZINE TAB 50 MG TAB PO SCH ×2 (08:01→19:36)
[2019-03-17] MEDS: ASPIRIN 81 MG ECTAB PO SCH (08:01)
[2019-03-17] MEDS: cloNIDine HCL 0.3 MG TAB PO SCH ×2 (08:01→19:36)
[2019-03-17] MEDS: ARIPiprazole 5 MG TAB PO SCH (08:01)
[2019-03-17] MEDS: carvediloL 25 MG TAB PO SCH ×2 (08:01→20:33)
[2019-03-17] MEDS: CHOLECALCIFEROL 1,000 UNITS TAB PO SCH (08:02)
[2019-03-17] MEDS: FLUTICASONE/SALMETEROL (ADVAIR) 500/50 INH 14 PUFF INH SCH ×2 (08:02→19:36)
[2019-03-17] MEDS: MULTIVITAMIN TAB PO SCH (08:02)
[2019-03-17] MEDS: AMLODIPINE BESYLATE 5 MG TAB PO SCH ×2 (08:02→20:33)
[2019-03-17] MEDS: HEPARIN SOD 5,000 UNIT/0.5 ML VIAL SC SCH ×2 (08:02→19:36)
[2019-03-17 09:37] LABS: Hematocrit (blood only) 36.1 % (37-47); Mean Corpuscular Hemoglobin 30.2 pg (25-34); Mean Corpuscular Hgb Conc 33.2 g/dL (32-36); Mean Corpuscular Volume 90.9 fL (80-100); Platelet Count 215 K/uL (130-400); RDW Coefficient of Variation 14.8 % (11.5-14.5); RDW Standard Deviation 49.1 fL (36.4-46.3); Red Blood Count 3.97 M/uL (4.2-5.4); White Blood Count 12.06 K/uL (4.8-10.8)
[2019-03-17] MEDS ORDERED: AMIODARONE 200 MG TAB PO ONE (09:39)
--- NOTE | 2019-03-17 09:42 | Cardiology Progress Note ---
Date of Service March 17, 2019 Assessment & Plan (1) Atypical chest pain: (2) Anxiety: (3) Primary malignant neoplasm of left upper lobe of lung: (4) PSVT (paroxysmal supraventricular tachycardia): We will discontinue the IV amiodarone and start oral amiodarone at 200 mg twice daily. Subjective The patient has no new cardiac complaints today. I reviewed the telemetry and she has not had any additional SVT since being started on amiodarone yesterday. Review of Systems Review of Systems: All systems reviewed & are unremarkable except as noted in HPI & below Nothing additional to add. Physical Exam Physical Exam: General: no acute distress and stated age Head: normocephalic, no masses, lesions, tenderness or abnormalities Eyes: conjunctiva are pink and non-injected, sclera clear Neck: supple, no adenopathy, no bruits, normal jugular venous pulse, no hepatojugular reflux Chest: normal shape and normal respiratory effort Lungs: clear to auscultation and percussion Cardiac Exam: - regular rate & rhythm, no murmurs gallops or rubs - normal S1, normal S2 Pulses: 2(+) throughout Abdomen: abdomen soft, non-tender, no abnormal masses and no hepatosplenomegaly Musculoskeletal: no gait disturbance, no joint inflammation, no deforming arthritis Extremities: no edema and no cyanosis Neuro: grossly normal exam Results & Data Vital Signs (Past 12 Hours) Vital Signs Temp Pulse Pulse Resp BP BP Pulse Ox 03/17/19 07:53 37.6 C H 105 H 19 117/73 92 03/17/19 06:10 37.9 C H 03/17/19 03:35 37.9 C H 110 H 18 120/72 93 03/16/19 23:49 90 03/16/19 23:35 36.7 C 97 H 22 105/70 90 Laboratory Results Laboratory Results - last 24 hr 03/16/19 03/17/19 03/17/19 11:06 09:25 09:25 WBC 12.06 H RBC 3.97 L Hgb 12.0 Hct 36.1 L MCV 90.9 MCH 30.2 MCHC 33.2 RDW Std Deviation 49.1 H RDW Coeff of Zaida 14.8 H Plt Count 215 MPV 9.0 Sodium Pending Potassium Pending Chloride Pending Carbon Dioxide Pending Anion Gap Pending BUN Pending Creatinine Pending Est Cr Clr Drug Dosing Pending Est GFR ( Amer) Pending Est GFR (Non-Af Amer) Pending BUN/Creatinine Ratio Pending Glucose Pending Calcium Pending TSH 0.763 Medications Administered Current Inpatient Medications Acetaminophen (Tylenol) 650 mg PO Q4H PRN PRN Reason: Pain or Fever Stop: 04/14/19 17:34 Last Admin: 03/17/19 03:45 Dose: 650 mg Documented by: Hydrocodone Bitart/Acetaminophen ([place] 5/325) 1 tab PO Q6H PRN PRN Reason: Pain Stop: 03/29/19 17:34 Albuterol (Duoneb) 3 ml INH Q4H PRN PRN Reason: Shortness Of Breath Stop: 04/14/19 17:34 Albuterol (Ventolin Hfa) 2 puffs INH Q4H PRN PRN Reason: shortness of breath or wheezin Stop: 04/15/19 15:21 Amiodarone HCl (Cordarone) 200 mg PO BIDM [facility] Stop: 04/16/19 16:59 Amiodarone HCl (Cordarone) 200 mg PO NOW ONE Stop: 03/17/19 09:40 Amlodipine Besylate (Norvasc) 5 mg PO BID [facility] Stop: 04/14/19 20:59 Last Admin: 03/17/19 08:02 Dose: Not Given Documented by: Aripiprazole (Abilify) 5 mg PO QAM [facility] Stop: 04/15/19 08:59 Last Admin: 03/17/19 08:01 Dose: Not Given Documented by: Aspirin (Ecotrin Ectab) 81 mg PO QAM [facility] Stop: 04/15/19 08:59 Last Admin: 03/17/19 08:01 Dose: Not Given Documented by: Carvedilol (Coreg) 25 mg PO BID [facility] Stop: 04/14/19 20:59 Last Admin: 03/17/19 08:01 Dose: Not Given Documented by: Clonidine HCl (Catapress) 0.3 mg PO BID [facility] Stop: 04/14/19 20:59 Last Admin: 03/17/19 08:01 Dose: Not Given Documented by: Diazepam (Valium) 5 mg PO TID [facility] Stop: 04/14/19 20:59 Last Admin: 03/16/19 21:23 Dose: Not Given Documented by: Fluoxetine HCl (Prozac) 40 mg PO QAM [facility] Stop: 04/15/19 08:59 Last Admin: 03/17/19 08:00 Dose: 20 mg Documented by: Guaifenesin/Codeine Phosphate (Robitussin-Ac Sugar Free) 5 ml PO Q6H PRN PRN Reason: cough Stop: 04/14/19 17:34 Heparin Sodium (Porcine) (Heparin Sodium (Porcine)) 5,000 units SC Q12 [facility] Stop: 04/15/19 20:59 Last Admin: 03/17/19 08:02 Dose: Not Given Documented by: Hydralazine HCl (Apresoline) 50 mg PO BID [facility] Stop: 04/14/19 20:59 Last Admin: 03/17/19 08:01 Dose: Not Given Documented by: Hydrochlorothiazide (Hctz) 25 mg PO QAM [facility] Stop: 04/15/19 08:59 Last Admin: 03/17/19 08:01 Dose: Not Given Documented by: Lorazepam (Ativan) 2 mg PO HS [facility] Stop: 04/15/19 20:59 Last Admin: 03/16/19 21:23 Dose: 2 mg Documented by: Multivitamins ([facility]ivitamin Tab) [facility] Stop: 04/15/19 08:59 Last Admin: 03/17/19 08:02 Dose: Not Given Documented by: Ondansetron HCl (Zofran Tab) 8 mg PO Q8H PRN PRN Reason: Nausea Stop: 04/14/19 17:34 Fluticasone/Salmeterol (Advair Diskus 500/50) 1 puffs INH BID [facility] Stop: 04/14/19 20:59 Last Admin: 03/17/19 08:02 Dose: Not Given Documented by: Vitamin D (Vitamin D3) 1,000 units PO QDL [facility] Stop: 04/15/19 11:29 Last Admin: 03/17/19 08:02 Dose: Not Given Documented by:
[2019-03-17 10:06] LABS: BUN Creatinine Ratio 23.6 (10-20); Calcium 8.8 mg/dl (8.5-10.1); Creatinine Clr Calc Pharmacy 30.6 ml/min; Est GFR (Non-African American) 59.5; Potassium 3.3 mmol/L (3.5-5.1)
[2019-03-17 10:11] LABS: Eosinophils # (auto) 0.01 K/uL (0-0.5); Eosinophils % (auto) 0.1 %; Immature Granulocytes # (auto) 0.01 K/uL (0.00-0.02); Immature Granulocytes % (auto) 0.1 %; Lymphocytes # (auto) 0.28 K/uL (1.2-3.4); Lymphocytes % (auto) 2.3 %; Monocytes # (auto) 0.68 K/uL (0.11-0.59); Monocytes % (auto) 5.6 %; Neutrophils # (auto) 11.08 K/uL (1.4-6.5); Neutrophils % (auto) 91.9 %
[2019-03-17] MEDS: diazePAM 5 MG TABLET PO SCH ×3 (11:11→20:33)
--- NOTE | 2019-03-17 12:06 | Hospitalist Progress Note ---
Date of Service March 17, 2019 Assessment & Plan (1) PSVT (paroxysmal supraventricular tachycardia): four separate episodes on 03/16 broke with vagal maneuvers, Adenosine 6mg, 12mg then amiodarone bolus and drip provided patient with ativan to calm her down and decrease adrenergic activity appreciate cardiology consult from Dr. Starr she does have a history of paroxysmal atrial arrhythmia, followed with Dr. Aleman in the past changed Amiodarone to 200mg BID, drip stopped on 03/17 no further episodes of SVT since morning on 03/16 will likely go home on Amiodarone, discuss further with cardiology (2) Fever: unclear etiology, but WBC up to 12k will repeat CBC in the AM, check CRP, ESR, procalcitonin check CXR and urinalysis check influenza swab no clear bacterial infection at this time, hold on antibiotics (3) Atypical chest pain: chest pain and pressure with anxiety, SVT 12 lead EKG when having the chest pain with minimal ST depression in V6 troponin did peak at 0.5, trended down after that Cardiology following, atypical pain, no plan for intervention (4) Primary malignant neoplasm of left upper lobe of lung: Patient is to follow with outpatient oncology, Dr. Aly Dempsey she did complete chemotherapy per her daughter and the tumor responded oncologist wants her to go on immunotherapy but she is refusing currently should follow up with Dr. Lu as previously scheduled (5) Chronic obstructive pulmonary disease: Patient is on inhaled medications which we will continue. no wheezing on exam, no signs of exacerbation (6) Anxiety: Continue Ativan and Valium as per outpatient. she would like a new psychiatrist, can ask Nurse Navigator to help facilitate this (7) Hypertension: Patient on multiple antihypertensive treatments: hydrochlorothiazide, Coreg, and Norvasc. continue (8) Hypokalemia: 3.3 this AM, add some K to fluids, repeat in the AM (9) Dehydration: clinically dry mucous membranes not drinking enough BUN and Cr trending up slightly will give NSS + 20mEq of K at 70mL/hr Subjective patient sleeping a lot, says she feels depressed, just down, after events of yesterday she had a low grade temperature but she did not notice herself feeling warm no dyspnea, no cough she says she feels dehydrated, I agree with her she is not eating or drinking, not much of an appetite reviewed labs, WBC up to 12k from 6k BUN up to 24 from 17 on admission, Cr up to 1.0 from 0.7 on admission K low at 3.3 she says that her outpatient psychiatrist is closing their office she would like to find a new psychiatrist she says she has been on Ativan to help her sleep since the Review of Systems Review of Systems: All systems reviewed & are unremarkable except as noted in HPI & below Constitutional: + chills, + fatigue and + weakness; no fever Respiratory: + dyspnea on exertion; no cough and no dyspnea Cardiovascular: no chest pain, no palpitations and no syncope Gastrointestinal: no abdominal pain, no nausea, no vomiting, no constipation and no diarrhea/loose stools Psychiatric: + depression and + anxiety Physical Exam Constitutional: well developed, + acute distress and + thin Eyes: PERRL, conjunctivae normal, anicteric sclerae ENMT: external ear and nose normal, oropharynx normal Neck: trachea midline, no thyromegaly Respiratory: normal respiratory effort; no respiratory distress Auscultation: lungs clear to auscultation bilaterally; no crackles, no rales, no rhonchi and no wheezes Cardiovascular: Rate/Rhythm: regular rhythm and + tachycardic Heart Sounds: normal S1 and normal S2; no murmur Vessels: no JVD Extremities: normal capillary refill; no edema Gastrointestinal (Abdomen): normal bowel sounds, soft, nontender, no hepatosplenomegaly Musculoskeletal: no cyanosis or clubbing, extremities motor strength 5/5 Skin: no rashes, warm and dry Neurologic: patellar DTR's 2+ bilat, sensation intact and PERRL, EOMI, accommodation nl, no face palsy, no dysarthria Psychiatric: Orientation: alert and oriented x 3 Apperance: appropriately dressed Affect: + depressed affect Mood: + depressed mood Lymphatic: no cervical or axillary lymphadenopathy Results & Data Vital Signs (Past 12 Hours) Vital Signs Temp Pulse Resp BP BP Pulse Ox 03/17/19 11:06 37.1 C 89 18 144/85 H 91 03/17/19 07:53 37.6 C H 105 H 19 117/73 92 03/17/19 06:10 37.9 C H 03/17/19 03:35 37.9 C H 110 H 18 120/72 93 Laboratory Results Laboratory Results - last 24 hr 03/17/19 03/17/19 09:25 09:25 WBC 12.06 H RBC 3.97 L Hgb 12.0 Hct 36.1 L MCV 90.9 MCH 30.2 MCHC 33.2 RDW Std Deviation 49.1 H RDW Coeff of Zaida 14.8 H Plt Count 215 MPV 9.0 Immature Gran % (Auto) 0.1 Neut % (Auto) 91.9 Lymph % (Auto) 2.3 [place] % (Auto) 5.6 Eos % (Auto) 0.1 Baso % (Auto) 0.0 Immature Gran # (Auto) 0.01 Neut # (Auto) 11.08 H Lymph # (Auto) 0.28 L [place] # (Auto) 0.68 H Eos # (Auto) 0.01 Baso # (Auto) 0.00 Sodium 137 Potassium 3.3 L Chloride 103 Carbon Dioxide 26 Anion Gap 7.0 BUN 24 H Creatinine 1.00 Est Cr Clr Drug Dosing 30.6 Est GFR ( Amer) 69.0 Est GFR (Non-Af Amer) 59.5 BUN/Creatinine Ratio 23.6 H Glucose 139 H Calcium 8.8 Medications Administered Current Inpatient Medications Acetaminophen (Tylenol) 650 mg PO Q4H PRN PRN Reason: Pain or Fever Stop: 04/14/19 17:34 Last Admin: 03/17/19 19:32 Dose: 650 mg Documented by: Hydrocodone Bitart/Acetaminophen ([place] 5/325) 1 tab PO Q6H PRN PRN Reason: Pain Stop: 03/29/19 17:34 Albuterol (Duoneb) 3 ml INH Q4H PRN PRN Reason: Shortness Of Breath Stop: 04/14/19 17:34 Albuterol (Ventolin Hfa) 2 puffs INH Q4H PRN PRN Reason: shortness of breath or wheezin Stop: 04/15/19 15:21 Amiodarone HCl (Cordarone) 200 mg PO [facility]IDWW [facility] Stop: 04/16/19 16:59 Last Admin: 03/17/19 16:28 Dose: 200 mg Documented by: Amlodipine Besylate (Norvasc) 5 mg PO BID [facility] Stop: 04/14/19 20:59 Last Admin: 03/17/19 20:33 Dose: Not Given Documented by: Aripiprazole (Abilify) 5 mg PO QAM [facility] Stop: 04/15/19 08:59 Last Admin: 03/17/19 08:01 Dose: Not Given Documented by: Aspirin (Ecotrin Ectab) 81 mg PO QAM [facility] Stop: 04/15/19 08:59 Last Admin: 03/17/19 08:01 Dose: Not Given Documented by: Carvedilol (Coreg) 25 mg PO BID [facility] Stop: 04/14/19 20:59 Last Admin: 03/17/19 20:33 Dose: Not Given Documented by: Clonidine HCl (Catapress) 0.3 mg PO BID [facility] Stop: 04/14/19 20:59 Last Admin: 03/17/19 19:36 Dose: Not Given Documented by: Diazepam (Valium) 5 mg PO TID [facility] Stop: 04/14/19 20:59 Last Admin: 03/17/19 20:33 Dose: Not Given Documented by: Fluoxetine HCl (Prozac) 40 mg PO [facility] Stop: 04/15/19 08:59 Last Admin: 03/17/19 08:00 Dose: 20 mg Documented by: Guaifenesin/Codeine Phosphate (Robitussin-Ac Sugar Free) 5 ml PO Q6H PRN PRN Reason: cough Stop: 04/14/19 17:34 Heparin Sodium (Porcine) (Heparin Sodium (Porcine)) 5,000 units SC Q12 [facility] Stop: 04/15/19 20:59 Last Admin: 03/17/19 19:36 Dose: Not Given Documented by: Hydralazine HCl (Apresoline) 50 mg PO BID [facility] Stop: 04/14/19 20:59 Last Admin: 03/17/19 19:36 Dose: Not Given Documented by: Hydrochlorothiazide (Hctz) 25 mg PO QAM [facility] Stop: 04/15/19 08:59 Last Admin: 03/17/19 08:01 Dose: Not Given Documented by: Potassium Chloride/Sodium Chloride (Normal Saline W/20 Meq Kcl) 20 meq in 1,000 mls @ 70 mls/hr IV .[id number] [facility] Stop: 03/18/19 12:32 Last Admin: 03/17/19 22:53 Dose: 70 mls/hr Documented by: Prochlorperazine 5 mg/ Syringe 5 mls @ 5 mls/min IV Q8H PRN PRN Reason: Nausea And Vomiting Stop: 04/16/19 22:05 Lorazepam (Ativan) 2 mg PO HS [facility] Stop: 04/15/19 20:59 Last Admin: 03/17/19 20:25 Dose: 2 mg Documented by: Multivitamins (Multivitamin Tab) 1 tab PO QAM [facility] Stop: 04/15/19 08:59 Last Admin: 03/17/19 08:02 Dose: Not Given Documented by: Ondansetron HCl (Zofran Tab) 8 mg PO Q8H PRN PRN Reason: Nausea Stop: 04/14/19 17:34 Fluticasone/Salmeterol (Advair Diskus 500/50) 1 puffs INH BID [facility] Stop: 04/14/19 20:59 Last Admin: 03/17/19 19:36 Dose: Not Given Documented by: Vitamin D (Vitamin D3) 1,000 units PO QDL [facility] Stop: 04/15/19 11:29 Last Admin: 03/17/19 08:02 Dose: Not Given Documented by: PG Care Time/CCT Total # of Minutes Spent Total Time Spent with Patient: Total time spent is greater than 50% in coordination of care (as documented) at patient's floor/unit and/or counseling patient:
[2019-03-17] MEDS ORDERED: NSS + 20MEQ KCL 20 MEQ/1,000 ML BAG IV SCH ×2 (12:15→22:15)
[2019-03-17] MEDS: AMIODARONE 200 MG TAB PO SCH (16:28)
[2019-03-17] MEDS: LORazepam 1 MG TAB PO SCH (20:25)
[2019-03-17] MEDS ORDERED: PROCHLORPERAZINE 5 MG in SYRINGE 4 ML IV PRN (22:06)
[2019-03-18] MEDS: ACETAMINOPHEN 325 MG TAB PO PRN ×2 (03:46→08:07)
[2019-03-18 04:27] LABS: Influenza A virus by PCR Neg for Influ A (Neg); Influenza B virus by PCR Neg for Influ B (Neg)
[2019-03-18 05:02] LABS: Appearance Urine Clear (Clear); Bacteria Urine Automated Negative (Negative); Bilirubin Urine Negative (Negative); Blood Urine Negative (Negative); Color Urine Dark Yellow; Epithelial Cell Urine Auto >30 /lpf (0-5); Glucose Urine UA Negative (Negative); Ketones Urine Negative (Negative); Leukocyte Esterase Urine 1+ (Negative); Nitrite Urine Negative (Negative); Protein Urine Negative (Negative); RBC Urine Automated 0-4 /hpf (0-4); Specific Gravity Urine 1.022 (1.000-1.030); Urobilinogen Urine Negative (Negative)
[2019-03-18 07:06] LABS: Hematocrit (blood only) 33.2 % (37-47); Hemoglobin 10.8 g/dL (12.0-16.0); Mean Corpuscular Hemoglobin 30.3 pg (25-34); Mean Corpuscular Hgb Conc 32.5 g/dL (32-36); Mean Corpuscular Volume 93.3 fL (80-100); Mean Platelet Volume 9.4 fL (7.4-10.4); Platelet Count 228 K/uL (130-400); RDW Coefficient of Variation 14.9 % (11.5-14.5); RDW Standard Deviation 50.8 fL (36.4-46.3); Red Blood Count 3.56 M/uL (4.2-5.4); White Blood Count 14.64 K/uL (4.8-10.8)
[2019-03-18 07:31] LABS: Basophils # (auto) 0.01 K/uL (0-0.2); Basophils % (auto) 0.1 %; Eosinophils # (auto) 0.02 K/uL (0-0.5); Eosinophils % (auto) 0.1 %; Immature Granulocytes # (auto) 0.03 K/uL (0.00-0.02); Immature Granulocytes % (auto) 0.2 %; Lymphocytes # (auto) 0.58 K/uL (1.2-3.4); Monocytes # (auto) 0.74 K/uL (0.11-0.59); Monocytes % (auto) 5.1 %; Neutrophils # (auto) 13.26 K/uL (1.4-6.5); Neutrophils % (auto) 90.5 %
--- NOTE | 2019-03-18 07:34 | XRay Report ---
XR chest 1V portable HISTORY: Fever COMPARISON: Chest 03/15/2019. FINDINGS: The lungs are hyperexpanded with apical predominant emphysematous changes. Small bilateral pleural effusions and patchy bibasilar densities are noted. The upper lung zones are clear. No eviden ce for pulmonary edema. The heart is normal in size. IMPRESSION: 1. There are new patchy bibasilar airspace opacities. This favors a pneumonia could be due to aspirat ion in the appropriate clinical setting. Recommend follow-up to ensure resolution. 2. Small bilateral pleural effusions. ACT 112: Negative or not required by law. Electronically signed by: Jemal Grijalva M.D. 03/18/2019 7:33 AM
[2019-03-18 07:45] LABS: BUN Creatinine Ratio 29.4 (10-20); C Reactive Protein 24.1 mg/dl (0-0.29); Calcium 8.4 mg/dl (8.5-10.1); Creatinine Clr Calc Pharmacy 40.9 ml/min; Est GFR (African American) 93.1; Est GFR (Non-African American) 80.3; Potassium 4.2 mmol/L (3.5-5.1)
[2019-03-18] MEDS: AMIODARONE 200 MG TAB PO SCH ×2 (08:08→17:28)
[2019-03-18] MEDS: ASPIRIN 81 MG ECTAB PO SCH (08:09)
[2019-03-18] MEDS: diazePAM 5 MG TABLET PO SCH ×2 (08:09→15:30)
[2019-03-18] MEDS: AMLODIPINE BESYLATE 5 MG TAB PO SCH ×2 (08:10→20:27)
[2019-03-18] MEDS: ARIPiprazole 5 MG TAB PO SCH (08:13)
[2019-03-18] MEDS: FLUTICASONE/SALMETEROL (ADVAIR) 500/50 INH 14 PUFF INH SCH ×2 (08:13→20:20)
[2019-03-18] MEDS: FLUOXETINE HCL 20 MG CAP PO SCH (08:14)
[2019-03-18] MEDS: HydrALAZINE TAB 50 MG TAB PO SCH ×2 (08:15→20:24)
[2019-03-18] MEDS: HEPARIN SOD 5,000 UNIT/0.5 ML VIAL SC SCH ×2 (08:16→20:26)
[2019-03-18] MEDS: carvediloL 25 MG TAB PO SCH ×2 (08:16→20:26)
[2019-03-18] MEDS: cloNIDine HCL 0.3 MG TAB PO SCH ×2 (08:16→20:24)
[2019-03-18] MEDS: MULTIVITAMIN TAB PO SCH (08:17)
[2019-03-18] MEDS: hydroCHLOROthiazide 25 MG TAB PO SCH (08:17)
--- NOTE | 2019-03-18 09:48 | Cardiology Progress Note ---
Date of Service March 18, 2019 Assessment & Plan (1) Atypical chest pain: (2) Anxiety: (3) Primary malignant neoplasm of left upper lobe of lung: (4) PSVT (paroxysmal supraventricular tachycardia): At this point I would continue the amiodarone. When the patient is ready for discharge she should be sent home on amiodarone 200 mg daily. Subjective The patient has had no additional arrhythmias in the past 24 hours. No new cardiac complaints. Review of Systems Review of Systems: All systems reviewed & are unremarkable except as noted in HPI & below Nothing additional to add. Physical Exam Physical Exam: General: no acute distress and stated age Head: normocephalic, no masses, lesions, tenderness or abnormalities Eyes: conjunctiva are pink and non-injected, sclera clear Neck: supple, no adenopathy, no bruits, normal jugular venous pulse, no hepatojugular reflux Chest: normal shape and normal respiratory effort Lungs: clear to auscultation and percussion Cardiac Exam: - regular rate & rhythm, no murmurs gallops or rubs - normal S1, normal S2 Pulses: 2(+) throughout Abdomen: abdomen soft, non-tender, no abnormal masses and no hepatosplenomegaly Musculoskeletal: no gait disturbance, no joint inflammation, no deforming arthr itis Extremities: no edema and no cyanosis Neuro: grossly normal exam Results & Data Vital Signs (Past 12 Hours) Vital Signs Temp Pulse Pulse Resp BP BP Pulse Ox 03/18/19 07:47 37.5 C 108 H 20 115/67 96 03/18/19 04:10 37.8 C H 112 H 20 106/65 94 03/18/19 01:06 37.0 C 98 H 18 115/71 93 03/17/19 22:21 102 H Laboratory Results Laboratory Results - last 24 hr 03/17/19 03/17/19 03/18/19 09:25 09:25 03:48 WBC RBC Hgb Hct MCV MCH MCHC RDW Std Deviation RDW Coeff of Zaida Plt Count MPV Immature Gran % (Auto) 0.1 Neut % (Auto) 91.9 Lymph % (Auto) 2.3 [place] % (Auto) 5.6 Eos % (Auto) 0.1 Baso % (Auto) 0.0 Immature Gran # (Auto) 0.01 Neut # (Auto) 11.08 H Lymph # (Auto) 0.28 L [place] # (Auto) 0.68 H Eos # (Auto) 0.01 Baso # (Auto) 0.00 ESR Sodium 137 Potassium 3.3 L Chloride 103 Carbon Dioxide 26 Anion Gap 7.0 BUN 24 H Creatinine 1.00 Est Cr Clr Drug Dosing 30.6 Est GFR ( Amer) 69.0 Est GFR (Non-Af Amer) 59.5 BUN/Creatinine Ratio 23.6 H Glucose 139 H Calcium 8.8 C-Reactive Protein Procalcitonin Urine Color Urine Appearance Urine pH Ur Specific Energy Urine Protein Urine Glucose (UA) Urine Ketones Urine Blood Urine Nitrite Urine Bilirubin Urine Urobilinogen Ur Leukocyte Esterase Urine WBC (Auto) Urine RBC (Auto) U Hyaline Cast (Auto) U Epithel Cells (Auto) Urine Bacteria (Auto) Influenza Type A (PCR) Neg for Influ A Influenza Type B (PCR) Neg for Influ B 03/18/19 03/18/19 03/18/19 04:49 06:35 06:35 WBC 14.64 H RBC 3.56 L Hgb 10.8 L Hct 33.2 L MCV 93.3 MCH 30.3 MCHC 32.5 RDW Std Deviation 50.8 H RDW Coeff of Zaida 14.9 H Plt Count 228 MPV 9.4 Immature Gran % (Auto) 0.2 Neut % (Auto) 90.5 Lymph % (Auto) 4.0 [place] % (Auto) 5.1 Eos % (Auto) 0.1 Baso % (Auto) 0.1 Immature Gran # (Auto) 0.03 H Neut # (Auto) 13.26 H Lymph # (Auto) 0.58 L [place] # (Auto) 0.74 H Eos # (Auto) 0.02 Baso # (Auto) 0.01 ESR Sodium 138 Potassium 4.2 D Chloride 108 H Carbon Dioxide 24 Anion Gap 7.0 BUN 23 H Creatinine 0.78 Est Cr Clr Drug Dosing 40.9 Est GFR ( Amer) 93.1 Est GFR (Non-Af Amer) 80.3 BUN/Creatinine Ratio 29.4 H Glucose 109 H Calcium 8.4 L C-Reactive Protein 24.10 H Procalcitonin Urine Color Dark Yellow Urine Appearance Clear Urine pH 5.0 Ur Specific Energy 1.022 Urine Protein Negative Urine Glucose (UA) Negative Urine Ketones Negative Urine Blood Negative Urine Nitrite Negative Urine Bilirubin Negative Urine Urobilinogen Negative Ur Leukocyte Esterase 1+ H Urine WBC (Auto) 5-10 H Urine RBC (Auto) 0-4 U Hyaline Cast (Auto) 1-5 U Epithel Cells (Auto) >30 H Urine Bacteria (Auto) Negative Influenza Type A (PCR) Influenza Type B (PCR) 03/18/19 03/18/19 06:35 06:35 WBC RBC Hgb Hct MCV MCH MCHC RDW Std Deviation RDW Coeff of Zaida Plt Count MPV Immature Gran % (Auto) Neut % (Auto) Lymph % (Auto) [place] % (Auto) Eos % (Auto) Baso % (Auto) Immature Gran # (Auto) Neut # (Auto) Lymph # (Auto) [place] # (Auto) Eos # (Auto) Baso # (Auto) ESR 66 H Sodium Potassium Chloride Carbon Dioxide Anion Gap BUN Creatinine Est Cr Clr Drug Dosing Est GFR ( Amer) Est GFR (Non-Af Amer) BUN/Creatinine Ratio Glucose Calcium C-Reactive Protein Procalcitonin 0.26 Urine Color Urine Appearance Urine pH Ur Specific Energy Urine Protein Urine Glucose (UA) Urine Ketones Urine Blood Urine Nitrite Urine Bilirubin Urine Urobilinogen Ur Leukocyte Esterase Urine WBC (Auto) Urine RBC (Auto) U Hyaline Cast (Auto) U Epithel Cells (Auto) Urine Bacteria (Auto) Influenza Type A (PCR) Influenza Type B (PCR) Medications Administered Current Inpatient Medications Acetaminophen (Tylenol) 650 mg PO Q4H PRN PRN Reason: Pain or Fever Stop: 04/14/19 17:34 Last Admin: 03/18/19 08:07 Dose: 325 mg Documented by: Hydrocodone Bitart/Acetaminophen ([place] 5/325) 1 tab PO Q6H PRN PRN Reason: Pain Stop: 03/29/19 17:34 Albuterol (Duoneb) 3 ml INH Q4H PRN PRN Reason: Shortness Of Breath Stop: 04/14/19 17:34 Albuterol (Ventolin Hfa) 2 puffs INH Q4H PRN PRN Reason: shortness of breath or wheezin Stop: 04/15/19 15:21 Amiodarone HCl (Cordarone) 200 mg PO BIDM [facility] Stop: 04/16/19 16:59 Last Admin: 03/18/19 08:08 Dose: 200 mg Documented by: Amlodipine Besylate (Norvasc) 5 mg PO BID [facility] Stop: 04/14/19 20:59 Last Admin: 03/18/19 08:10 Dose: Not Given Documented by: Aripiprazole (Abilify) 5 mg PO QAM [facility] Stop: 04/15/19 08:59 Last Admin: 03/18/19 08:13 Dose: Not Given Documented by: [facility]) [facility]: 04/15/19 08:59 Last Admin: 03/18/19 08:09 Dose: 81 mg Documented by: Carvedilol (Coreg) 25 mg PO BID [facility] Stop: 04/14/19 20:59 Last Admin: 03/18/19 08:16 Dose: Not Given Documented by: Clonidine HCl (Catapress) 0.3 mg PO BID [facility] Stop: 04/14/19 20:59 Last Admin: 03/18/19 08:16 Dose: Not Given Documented by: Diazepam (Valium) 5 mg PO TID [facility] Stop: 04/14/19 20:59 Last Admin: 03/18/19 08:09 Dose: Not Given Documented by: Fluoxetine HCl (Prozac) 40 mg PO [facility] Stop: 04/15/19 08:59 Last Admin: 03/18/19 08:14 Dose: 40 mg Documented by: Guaifenesin/Codeine Phosphate (Robitussin-Ac Sugar Free) 5 ml PO Q6H PRN PRN Reason: cough Stop: 04/14/19 17:34 Heparin Sodium (Porcine) (Heparin Sodium (Porcine)) 5,000 units SC Q12 [facility] Stop: 04/15/19 20:59 Last Admin: 03/18/19 08:16 Dose: Not Given Documented by: Hydralazine HCl (Apresoline) 50 mg PO BID [facility] Stop: 04/14/19 20:59 Last Admin: 03/18/19 08:15 Dose: Not Given Documented by: Hydrochlorothiazide (Hctz) 25 mg PO QAM [facility] Stop: 04/15/19 08:59 Last Admin: 03/18/19 08:17 Dose: Not Given Documented by: Potassium Chloride/Sodium Chloride (Normal Saline W/20 Meq Kcl) 20 meq in 1,000 mls @ 70 mls/hr IV .[id number] [facility] Stop: 03/18/19 12:32 Last Admin: 03/17/19 22:53 Dose: 70 mls/hr Documented by: Prochlorperazine 5 mg/ Syringe 5 mls @ 5 mls/min IV Q8H PRN PRN Reason: Nausea And Vomiting Stop: 04/16/19 22:05 Lorazepam (Ativan) 2 mg PO HS [facility] Stop: 04/15/19 20:59 Last Admin: 03/17/19 20:25 Dose: 2 mg Documented by: Multivitamins (Multivitamin Tab) 1 tab PO QAM [facility] Stop: 04/15/19 08:59 Last Admin: 03/18/19 08:17 Dose: Not Given Documented by: Ondansetron HCl (Zofran Tab) 8 mg PO Q8H PRN PRN Reason: Nausea Stop: 04/14/19 17:34 Fluticasone/Salmeterol (Advair Diskus 500/50) 1 puffs INH BID [facility] Stop: 04/14/19 20:59 Last Admin: 03/18/19 08:13 Dose: 1 puffs Documented by: Vitamin D (Vitamin D3) 1,000 units PO QDL [facility] Stop: 04/15/19 11:29 Last Admin: 03/17/19 08:02 Dose: Not Given Documented by:
[2019-03-18] MEDS ORDERED: ACETAMINOPHEN 325 MG TAB PO PRN (10:07)
[2019-03-18] MEDS ORDERED: ERTAPENEM SODIUM 1,000 MG in SODIUM CHLORIDE 0.9% 50 ML IV SCH (10:15)
[2019-03-18] MEDS ORDERED: ACETAMINOPHEN 325 MG TAB PO ONE (11:31)
[2019-03-18] MEDS: PANTOprazole 40 MG TAB PO SCH (11:35)
[2019-03-18] MEDS: LIDOCAINE 5% 1 PATCH TD SCH (11:36)
[2019-03-18] MEDS: DOXYCYCLINE HYCLATE 100 MG in DEXTROSE 5% 100 ML IV SCH ×2 (12:34→20:38)
[2019-03-18] MEDS: CHOLECALCIFEROL 1,000 UNITS TAB PO SCH (12:34)
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
--- NOTE | 2019-03-18 14:05 | Hospitalist Progress Note ---
Date of Service March 18, 2019 Assessment & Plan (1) PSVT (paroxysmal supraventricular tachycardia): - Had four separate episodes on 03/16; broke with vagal maneuvers, Adenosine 6 then 12 mg and Amio bolus/drip. - Converted to PO Amiodarone 200 mg BID -- has been in NSR, rate controlled over last 24 hours. - Cardiology following, appreciate input. Does have h/o paroxysmal atrial arrhythmia and followed with Dr. Aleman. (2) Pneumonia: - CXR showed bibasilar opacities, consider aspiration PNA. - Has low grade fevers, leukocytosis noted on labs; Procal level was 0.26. - Will start Doxycycline and Ertapenem for empiric coverage (due to i mmunocompromised state) - MRSA swab pending - consider stronger MRSA coverage if indicated but at this point only treating CAP/aspiration PNA. (3) Fever: - Likely related to PNA -- see above. (4) Atypical chest pain: - Likely related to episodes of SVT and anxiety. Does c/o acute left sided chest/rib pain -- possibly related to inflammation from coughing episodes vs. concern for PE in setting of cancer --> low threshold to complete CT PE. - 12 lead EKG with minimal ST depression in V6. - Trop peaked at 0.5 then trended down. - Cardiology consulted, appreciate input. - Lidocaine patch with Tylenol prn for left sided pain related to muscle strain. (5) Primary malignant neoplasm of left upper lobe of lung: - Follows with Dr. Lu from [facility]. - Tumor responded well to chemotherapy; her oncologist wants to her to start immunotherapy. (6) Chronic obstructive pulmonary disease: - Continue Advair BID with Duonebs qhr prn and Albuterol prn. - No evidence of acute exacerbation -- no indication for IV steroids. (7) Anxiety: - Pt. has been refusing Abilify, Clonidine, Valium but is taking home Ativan & Prozac. - Will consult psych to adjust medication adjustments in setting of uncontrolled anxiety. - Will need outpatient f/u with psychiatrist -- her current office is closing. (8) Hypertension: - Continue Amlodipine, Coreg, Catapress, Hydralazine, HCTZ as prescribed. - BP has been well controlled. (9) Dehydration: - Received IV fluids at 70 cc/hr, now discontinued. - Encourage PO intake. DVT ppx: Heparin q12hr. Dispo: PCU/tele for IV abx in setting of PNA/low grade fevers. Psych also consulted for management of anxiety. DNR/DNI - confirmed with patient at bedside today. Supervising Physician Co-Signing Physician Notes PA Supervision Note: I did not personally see or examine the patient today, but I verified all christian points of DICK Allsion's assessment and plan with the following exceptions/additions: None Subjective Pt. had low grade fevers over last 24 hours. She reports she has had fevers over the last month at home. C/o SOB with exertion but is stable on home O2 requirements. Has a productive cough over last the few weeks, green-yellow sputum. C/o pressure in left chest/rib area -- pain is worse with coughing episodes and inspiration/expiration. Will start IV abx for coverage of PNA based on CXR results. Procal level was negative. Pt. is very anxious -- she has been refusing Abilify and Valium. When asked about psych meds, pt reports "they are giving me all the wrong meds here". Her psychiatry office is closing, therefore she will need to establish care with new provider. Will consult psych as inpatient to discuss medication management. Review of Systems Review of Systems: All systems reviewed & are unremarkable except as noted in HPI & below Constitutional: + fever, + chills, + fatigue, + weakness and + anorexia Respiratory: + cough, + dyspnea, + dyspnea on exertion and + sputum production; no change in sputum and no wheezing Cardiovascular: + chest pain; no palpitations and no edema Gastrointestinal: no abdominal pain, no nausea, no vomiting and no constipation Genitourinary: no difficulty urinating Musculoskeletal: no back pain and no joint pain Integumentary: no non-healing lesions Physical Exam Physical Exam: General: Mild distress noted related to anxiety. HEENT: NC/AT; PERRLA with EOMI; [place] conjunctiva, MMM. No erythema of posterior pharynx Neck: Supple and nontender Cardiac: RRR Lungs: 2L via NC; CTA bilaterally Abdomen: Bowel normoactive X 4; Nontender to palpation Extremities: Warm. No edema present Neuro: No focal weakness Skin: No rash Results & Data Vital Signs (Past 12 Hours) Vital Signs Temp Pulse Pulse Resp BP BP Pulse Ox 03/18/19 11:56 37.0 C 113 H 20 135/74 94 03/18/19 08:05 90 03/18/19 07:47 37.5 C 108 H 20 115/67 96 03/18/19 04:10 37.8 C H 112 H 20 106/65 94 Laboratory Results 03/18/19 03/18/19 03/18/19 Range/Units 10:28 06:35 06:35 WBC (4.8-10.8) K/uL RBC (4.2-5.4) M/uL Hgb (12.0-16.0) g/dL Hct (37-47) % MCV (80-100) fL MCH (25-34) pg MCHC (32-36) g/dL RDW Std Deviation (36.4-46.3) fL RDW Coeff of Zaida (11.5-14.5) % Plt Count (130-400) K/uL MPV (7.4-10.4) fL Immature Gran % (Auto) % Neut % (Auto) % Lymph % (Auto) % [place] % (Auto) % Eos % (Auto) % Baso % (Auto) % Immature Gran # (Auto) (0.00-0.02) K/uL Neut # (Auto) (1.4-6.5) K/uL Lymph # (Auto) (1.2-3.4) K/uL [place] # (Auto) (0.11-0.59) K/uL Eos # (Auto) (0-0.5) K/uL Baso # (Auto) (0-0.2) K/uL ESR 66 H (0-21) mm/hr Sodium (136-145) mmol/L Potassium (3.5-5.1) mmol/L Chloride (98-107) mmol/L Carbon Dioxide (21-32) mmol/L Anion Gap (3-11) BUN (7-18) mg/dl Creatinine (0.6-1.2) mg/dl Est Cr Clr Drug Dosing ml/min Est GFR ( Amer) Est GFR (Non-Af Amer) BUN/Creatinine Ratio (10-20) Glucose (70-99) mg/dl Calcium (8.5-10.1) mg/dl C-Reactive Protein (0-0.29) mg/dl Procalcitonin 0.26 (0-0.5) ng/ml Urine Color Urine Appearance (Clear) Urine pH (4.5-7.5) Ur Specific [place] (1.000-1.030) Urine Protein (Negative) Urine Glucose (UA) (Negative) Urine Ketones (Negative) Urine Blood (Negative) Urine Nitrite (Negative) Urine Bilirubin (Negative) Urine Urobilinogen (Negative) Ur Leukocyte Esterase (Negative) Urine WBC (Auto) (0-5) /hpf Urine RBC (Auto) (0-4) /hpf U Hyaline Cast (Auto) (0-5) /lpf U Epithel Cells (Auto) (0-5) /lpf Urine Bacteria (Auto) (Negative) Nasal Screen MRSA (PCR) Negative (Negative) Influenza Type A (PCR) (Neg) Influenza Type B (PCR) (Neg) 03/18/19 03/18/19 03/18/19 Range/Units 06:35 06:35 04:49 WBC 14.64 H (4.8-10.8) K/uL RBC 3.56 L (4.2-5.4) M/uL Hgb 10.8 L (12.0-16.0) g/dL Hct 33.2 L (37-47) % MCV 93.3 (80-100) fL MCH 30.3 (25-34) pg MCHC 32.5 (32-36) g/dL RDW Std Deviation 50.8 H (36.4-46.3) fL RDW Coeff of Zaida 14.9 H (11.5-14.5) % Plt Count 228 (130-400) K/uL MPV 9.4 (7.4-10.4) fL Immature Gran % (Auto) 0.2 % Neut % (Auto) 90.5 % Lymph % (Auto) 4.0 % [place] % (Auto) 5.1 % Eos % (Auto) 0.1 % Baso % (Auto) 0.1 % Immature Gran # (Auto) 0.03 H (0.00-0.02) K/uL Neut # (Auto) 13.26 H (1.4-6.5) K/uL Lymph # (Auto) 0.58 L (1.2-3.4) K/uL [place] # (Auto) 0.74 H (0.11-0.59) K/uL Eos # (Auto) 0.02 (0-0.5) K/uL Baso # (Auto) 0.01 (0-0.2) K/uL ESR (0-21) mm/hr Sodium 138 (136-145) mmol/L Potassium 4.2 D (3.5-5.1) mmol/L Chloride 108 H (98-107) mmol/L Carbon Dioxide 24 (21-32) mmol/L Anion Gap 7.0 (3-11) BUN 23 H (7-18) mg/dl Creatinine 0.78 (0.6-1.2) mg/dl Est Cr Clr Drug Dosing 40.9 ml/min Est GFR ( Amer) 93.1 Est GFR (Non-Af Amer) 80.3 BUN/Creatinine Ratio 29.4 H (10-20) Glucose 109 H (70-99) mg/dl Calcium 8.4 L (8.5-10.1) mg/dl C-Reactive Protein 24.10 H (0-0.29) mg/dl Procalcitonin (0-0.5) ng/ml Urine Color Dark Yellow Urine Appearance Clear (Clear) Urine pH 5.0 (4.5-7.5) Ur Specific [place] 1.022 (1.000-1.030) Urine Protein Negative (Negative) Urine Glucose (UA) Negative (Negative) Urine Ketones Negative (Negative) Urine Blood Negative (Negative) Urine Nitrite Negative (Negative) Urine Bilirubin Negative (Negative) Urine Urobilinogen Negative (Negative) Ur Leukocyte Esterase 1+ H (Negative) Urine WBC (Auto) 5-10 H (0-5) /hpf Urine RBC (Auto) 0-4 (0-4) /hpf U Hyaline Cast (Auto) 1-5 (0-5) /lpf U Epithel Cells (Auto) >30 H (0-5) /lpf Urine Bacteria (Auto) Negative (Negative) Nasal Screen MRSA (PCR) (Negative) Influenza Type A (PCR) (Neg) Influenza Type B (PCR) (Neg) 03/18/19 Range/Units 03:48 WBC (4.8-10.8) K/uL RBC (4.2-5.4) M/uL Hgb (12.0-16.0) g/dL Hct (37-47) % MCV (80-100) fL MCH (25-34) pg MCHC (32-36) g/dL RDW Std Deviation (36.4-46.3) fL RDW Coeff of Zaida (11.5-14.5) % Plt Count (130-400) K/uL MPV (7.4-10.4) fL Immature Gran % (Auto) % Neut % (Auto) % Lymph % (Auto) % [place] % (Auto) % Eos % (Auto) % Baso % (Auto) % Immature Gran # (Auto) (0.00-0.02) K/uL Neut # (Auto) (1.4-6.5) K/uL Lymph # (Auto) (1.2-3.4) K/uL [place] # (Auto) (0.11-0.59) K/uL Eos # (Auto) (0-0.5) K/uL Baso # (Auto) (0-0.2) K/uL ESR (0-21) mm/hr Sodium (136-145) mmol/L Potassium (3.5-5.1) mmol/L Chloride (98-107) mmol/L Carbon Dioxide (21-32) mmol/L Anion Gap (3-11) BUN (7-18) mg/dl Creatinine (0.6-1.2) mg/dl Est Cr Clr Drug Dosing ml/min Est GFR ( Amer) Est GFR (Non-Af Amer) BUN/Creatinine Ratio (10-20) Glucose (70-99) mg/dl Calcium (8.5-10.1) mg/dl C-Reactive Protein (0-0.29) mg/dl Procalcitonin (0-0.5) ng/ml Urine Color Urine Appearance (Clear) Urine pH (4.5-7.5) Ur Specific [place] (1.000-1.030) Urine Protein (Negative) Urine Glucose (UA) (Negative) Urine Ketones (Negative) Urine Blood (Negative) Urine Nitrite (Negative) Urine Bilirubin (Negative) Urine Urobilinogen (Negative) Ur Leukocyte Esterase (Negative) Urine WBC (Auto) (0-5) /hpf Urine RBC (Auto) (0-4) /hpf U Hyaline Cast (Auto) (0-5) /lpf U Epithel Cells (Auto) (0-5) /lpf Urine Bacteria (Auto) (Negative) Nasal Screen MRSA (PCR) (Negative) Influenza Type A (PCR) Neg for Influ A (Neg) Influenza Type B (PCR) Neg for Influ B (Neg) PG Care Time/CCT Total # of Minutes Spent Total Time Spent with Patient: Total time spent is greater than 50% in coordination of care (as documented) at patient's floor/unit and/or counseling patient:
[2019-03-18] MEDS ORDERED: QUETIAPINE FUMARATE 25 MG TABLET PO PRN (15:45)
[2019-03-18] MEDS ORDERED: Nursing to Pharmacy Communication ONE (18:57)
[2019-03-18] MEDS: ACETAMINOPHEN 500 MG TAB PO PRN (19:27)
[2019-03-18] MEDS: LORazepam 1 MG TAB PO SCH (20:20)
[2019-03-18] MEDS: diazePAM 5 MG TABLET PO PRN (20:20)
[2019-03-19 04:16] VITALS: TEMP 97.7
[2019-03-19 07:13] LABS: Hematocrit (blood only) 28.5 % (37-47); Hemoglobin 9.3 g/dL (12.0-16.0); Mean Corpuscular Hemoglobin 30.4 pg (25-34); Mean Corpuscular Hgb Conc 32.6 g/dL (32-36); Mean Corpuscular Volume 93.1 fL (80-100); Mean Platelet Volume 9.7 fL (7.4-10.4); Platelet Count 197 K/uL (130-400); RDW Coefficient of Variation 15.1 % (11.5-14.5); RDW Standard Deviation 51.3 fL (36.4-46.3); Red Blood Count 3.06 M/uL (4.2-5.4); White Blood Count 9.89 K/uL (4.8-10.8)
[2019-03-19 07:39] LABS: BUN Creatinine Ratio 30.2 (10-20); Calcium 8.9 mg/dl (8.5-10.1); Creatinine Clr Calc Pharmacy 53.4 ml/min; Est GFR (African American) 111.6; Est GFR (Non-African American) 96.3; Potassium 4.3 mmol/L (3.5-5.1)
[2019-03-19] MEDS: AMIODARONE 200 MG TAB PO SCH (07:48)
[2019-03-19] MEDS: ACETAMINOPHEN 500 MG TAB PO PRN (08:29)
[2019-03-19] MEDS: PANTOprazole 40 MG TAB PO SCH (08:32)
[2019-03-19] MEDS: HEPARIN SOD 5,000 UNIT/0.5 ML VIAL SC SCH (08:33)
[2019-03-19] MEDS: FLUTICASONE/SALMETEROL (ADVAIR) 500/50 INH 14 PUFF INH SCH (08:33)
[2019-03-19] MEDS: ASPIRIN 81 MG ECTAB PO SCH (08:33)
[2019-03-19] MEDS: LIDOCAINE 5% 1 PATCH TD SCH (08:34)
[2019-03-19] MEDS: MULTIVITAMIN TAB PO SCH (08:34)
[2019-03-19] MEDS ORDERED: SODIUM CHLORIDE 0.9% 1000ML 1,000 ML IV SCH (08:35)
[2019-03-19] MEDS: cloNIDine HCL 0.3 MG TAB PO SCH (08:35)
[2019-03-19] MEDS: DOXYCYCLINE HYCLATE 100 MG in DEXTROSE 5% 100 ML IV SCH (08:40)
[2019-03-19 08:42] VITALS: O2SAT 97
[2019-03-19] MEDS: diazePAM 5 MG TABLET PO PRN (08:56)
[2019-03-19] MEDS ORDERED: FLUOXETINE HCL 20 MG CAP PO SCH (09:00)
--- NOTE | 2019-03-19 11:22 | Cardiology Progress Note ---
Date of Service March 19, 2019 Assessment & Plan (1) Atypical chest pain: (2) Anxiety: (3) Primary malignant neoplasm of left upper lobe of lung: (4) PSVT (paroxysmal supraventricular tachycardia): At this point I would continue the amiodarone. When the patient is ready for discharge she should be sent home on amiodarone 200 mg daily. Subjective The patient is dressed and wants to go home. She has had a stable heart rhythm since being placed on amiodarone and her telemetry has been good the past 24 hours. Review of Systems Review of Systems: All systems reviewed & are unremarkable except as noted in HPI & below Nothing additional to add. Physical Exam Physical Exam: General: no acute distress and stated age Head: normocephalic, no masses, lesions, tenderness or abnormalities Eyes: conjunctiva are pink and non-injected, sclera clear Neck: supple, no adenopathy, no bruits, normal jugular venous pulse, no hepatojugular reflux Chest: normal shape and normal respiratory effort Lungs: clear to auscultation and percussion Cardiac Exam: - regular rate & rhythm, no murmurs gallops or rubs - normal S1, normal S2 Pulses: 2(+) throughout Abdomen: abdomen soft, non-tender, no abnormal masses and no hepatosplenomegaly Musculoskeletal: no gait disturbance, no joint inflammation, no deforming arthritis Extremities: no edema and no cyanosis Neuro: grossly normal exam Results & Data Vital Signs (Past 12 Hours) Vital Signs Temp Pulse Pulse Resp BP Pulse Ox 03/19/19 08:00 36.5 C 83 89 18 119/71 97 03/19/19 03:37 36.5 C 86 20 92/60 L 98 03/18/19 23:53 36.4 C L 86 20 99/65 L 98 03/18/19 23:20 93 H Laboratory Results Laboratory Results - last 24 hr 03/18/19 03/19/19 03/19/19 10:28 06:50 06:50 WBC 9.89 RBC 3.06 L Hgb 9.3 L Hct 28.5 L MCV 93.1 MCH 30.4 MCHC 32.6 RDW Std Deviation 51.3 H RDW Coeff of Zaida 15.1 H Plt Count 197 MPV 9.7 Sodium 137 Potassium 4.3 Chloride 108 H Carbon Dioxide 27 Anion Gap 2.0 L BUN 18 Creatinine 0.60 Est Cr Clr Drug Dosing 53.4 Est GFR ( Amer) 111.6 Est GFR (Non-Af Amer) 96.3 BUN/Creatinine Ratio 30.2 H Glucose 110 H Calcium 8.9 Nasal Screen MRSA (PCR) Negative Medications Administered Current Inpatient Medications Acetaminophen (Tylenol) 500 mg PO Q6H PRN PRN Reason: Pain or Fever Stop: 04/17/19 10:06 Last Admin: 03/19/19 08:29 Dose: 500 mg Documented by: Hydrocodone Bitart/Acetaminophen ([place] 5/325) 1 tab PO Q6H PRN PRN Reason: Pain Stop: 03/29/19 17:34 Albuterol (Duoneb) 3 ml INH Q4H PRN PRN Reason: Shortness Of Breath Stop: 04/14/19 17:34 Albuterol (Ventolin Hfa) 2 puffs INH Q4H PRN PRN Reason: shortness of breath or wheezin Stop: 04/15/19 15:21 Amiodarone HCl (Cordarone) 200 mg PO DAILY [facility] Stop: 04/19/19 08:59 Amlodipine Besylate (Norvasc) 5 mg PO BID [facility] Stop: 04/14/19 20:59 Last Admin: 03/18/19 20:27 Dose: Not Given Documented by: Aripiprazole (Abilify) 5 mg PO QAM [facility] Stop: 04/15/19 08:59 Last Admin: 03/18/19 08:13 Dose: Not Given Documented by: Aspirin (Ecotrin Ectab) 81 mg PO QAM [facility] Stop: 04/15/19 08:59 Last Admin: 03/19/19 08:33 Dose: 81 mg Documented by: Carvedilol (Coreg) 25 mg PO BID [facility] Stop: 04/14/19 20:59 Last Admin: 03/18/19 20:26 Dose: Not Given Documented by: Clindamycin HCl (Cleocin) 150 mg PO Q6 [facility] Stop: 03/26/19 11:59 Clonidine HCl (Catapress) 0.3 mg PO BID [facility] Stop: 04/14/19 20:59 Last Admin: 03/19/19 08:35 Dose: Not Given Documented by: Diazepam (Valium) 5 mg PO TID PRN PRN Reason: Anxiety Stop: 04/14/19 20:59 Last Admin: 03/19/19 08:56 Dose: 5 mg Documented by: Fluoxetine HCl (Prozac) 20 mg PO BID [facility] Stop: 04/18/19 08:59 Last Admin: 03/19/19 08:31 Dose: 20 mg Documented by: Guaifenesin/Codeine Phosphate (Robitussin-Ac Sugar Free) 5 ml PO Q6H PRN PRN Reason: cough Stop: 04/14/19 17:34 Heparin Sodium (Porcine) (Heparin Sodium (Porcine)) 5,000 units SC Q12 [facility] Stop: 04/15/19 20:59 Last Admin: 03/19/19 08:33 Dose: Not Given Documented by: Hydralazine HCl (Apresoline) 50 mg PO BID [facility] Stop: 04/14/19 20:59 Last Admin: 03/18/19 20:24 Dose: Not Given Documented by: Hydrochlorothiazide (Hctz) 25 mg PO [facility] Stop: 04/15/19 08:59 Last Admin: 03/18/19 08:17 Dose: Not Given Documented by: Prochlorperazine 5 mg/ Syringe 5 mls @ 5 mls/min IV Q8H PRN PRN Reason: Nausea And Vomiting Stop: 04/16/19 22:05 Lidocaine (Lidoderm 5%) 1 patch TD [facility] Stop: 04/17/19 10:44 Last Admin: 03/19/19 08:34 Dose: Not Given Documented by: Lorazepam (Ativan) 2 mg PO HS [facility] Stop: 04/15/19 20:59 Last Admin: 03/18/19 20:20 Dose: 2 mg Documented by: Miscellaneous (Remove Lidoderm Patch) 1 ea N/A DAILY@2100 [facility] Stop: 04/17/19 20:59 Last Admin: 03/18/19 20:28 Dose: 1 ea Documented by: Multivitamins (Multivitamin Tab) 1 tab PO [facility] Stop: 04/15/19 08:59 Last Admin: 03/19/19 08:34 Dose: Not Given Documented by: Ondansetron HCl (Zofran Tab) 8 mg PO Q8H PRN PRN Reason: Nausea Stop: 04/14/19 17:34 Pantoprazole Sodium (Protonix) 40 mg PO [facility] Stop: 04/17/19 10:44 Last Admin: 03/19/19 08:32 Dose: 40 mg Documented by: Quetiapine Fumarate (Seroquel) 12.5 mg PO Q4H PRN PRN Reason: ANXIETY/PARANOIA Stop: 04/17/19 15:44 Saccharomyces Boulardii (Florastor) 250 mg PO DAILY [facility] Stop: 04/19/19 08:59 Fluticasone/Salmeterol (Advair Diskus 500/50) 1 puffs INH BID [facility] Stop: 04/14/19 20:59 Last Admin: 03/19/19 08:33 Dose: Not Given Documented by: Vitamin D (Vitamin D3) 1,000 units PO QDL [facility] Stop: 04/15/19 11:29 Last Admin: 03/18/19 12:34 Dose: Not Given Documented by:
[2019-03-19 11:42] VITALS: BP 106/65; PULSE 93
[2019-03-19] MEDS: CHOLECALCIFEROL 1,000 UNITS TAB PO SCH (11:42)
[2019-03-19] MEDS: ARIPiprazole 5 MG TAB PO SCH (11:42)
[2019-03-19] MEDS ORDERED: CEFDINIR 300 MG CAP PO SCH (11:45)
[2019-03-19] MEDS ORDERED: CLINDAMYCIN HCL 150 MG CAP PO SCH (12:00)
--- NOTE | 2019-03-19 16:45 | Discharge Summary ---
Date of Service March 19, 2019 Admission HPI Per Admitting Provider This is a 63-year-old female with past medical history of severe COPD and possible bronchogenic carcinoma that presents today complaining of chest pain. Patient is very anxious and somewhat difficult historian. Patient tells me that she has ongoing issues with chronic pain. She states that she is been having chest pain which is worsened since recent diagnosis of a left suprahilar lung mass. She notes that the pain is left of her sternum. It is tender to touch and hurts with cough or any movement. It also hurts with deep inspiration. There is no relation to activity. She has no associated symptoms such as fever, diaphoresis, lightheadedness, or palpitations. She tells me that she uses Tylenol at home and last about 2 hours but the pain returns. I did review some of her old patient records. She tells me that she is not a candidate for chemotherapy secondary to her low body mass. She is following with an oncologist for possible immunotherapy but is to have a CT scan early next month prior to the appointment. I note that she has been on. Duragesic patch but had to be stopped secondary to side effects. She was also given oxycodone in the past by her primary care provider. At the time of my evaluation the patient's O2 sat is 92% on room air. She tells me she only uses home oxygen as needed. She does appear very anxious and her blood pressure is elevated 160/121 Admission Exam Per Admitting Provider Constitutional: + cachectic and + frail appearing; no acute distress Neck: trachea midline, no thyromegaly Respiratory: Auscultation: + diminished lung sounds and + rhonchi; no crackles, no rales and no wheezes Cardiovascular: Rate/Rhythm: regular rhythm and + tachycardic Heart Sounds: normal S1 and normal S2 Chest wall tenderness with mild palpation just to the left of the sternum Gastrointestinal (Abdomen): Inspection/Auscultation: abdomen normal to inspection Percussion/Palpation: abdomen soft; abdomen nontender, no guarding, abdomen not rigid and no hepatosplenomegaly Musculoskeletal: no cyanosis or clubbing, extremities motor strength 5/5 Principal Diagnosis PSVT, Pneumonia, Anxiety Discharge Exam General: Acute moderate distress related to anxiety. HEENT: NC/AT; PERRLA with EOMI; [place] conjunctiva, MMM. No erythema of posterior pharynx Neck: Supple and nontender Cardiac: RRR Lungs: 2L via NC; CTA bilaterally Abdomen: Bowel normoactive X 4; Nontender to palpation Extremities: Warm. No edema present Neuro: No focal weakness Skin: No rash Discharge Data Allergies Allergy/AdvReac Type Severity Reaction Status Date / Time lamotrigine Allergy Intermediate RASH, Verified 02/25/19 10:36 NAUSEA levofloxacin [From Levaquin] Allergy Intermediate Rash Verified 02/25/19 10:36 amoxicillin Allergy Unknown UNKN Verified 02/25/19 10:36 clavulanic acid Allergy Unknown UNKN Verified 02/25/19 10:36 gabapentin Allergy Unknown UNKN Verified 02/25/19 10:36 ketamine Allergy Unknown claims it Verified 02/25/19 10:36 will cause sudden Penicillins Allergy Verified 02/25/19 10:36 aclidinium AdvReac Severe Racing Verified 02/25/19 10:36 [From Tudorza Pressair] Heart Consultations 03/15/19 15:27 ED Decision to Admit Stat 03/16/19 08:59 Consult Cardiology Routine 03/18/19 10:10 Consult Psychiatry Routine Ordered Studies CXR 03/15 and 03/18 Hospital Course (1) PSVT (paroxysmal supraventricular tachycardia): Had four separate episodes on 03/16; broke with vagal maneuvers, Adenosine 6 then 12 mg and Amio bolus/drip. Converted to PO Amiodarone 200 mg BID -- has been in NSR, rate controlled. 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 Cardiology following, appreciate input. Does have h/o paroxysmal atrial arrhythmia and followed with Dr. Aleman. F/u with data processing consultant as outpatient. (2) Pneumonia: CXR showed bibasilar opacities, consider aspiration PNA. Had low grade fevers, leukocytosis noted on labs; Procal level was 0.26. Fevers resolved, leukocytosis resolved after starting antibiotics Started Doxycycline and Ertapenem for empiric coverage given development of PNA after admission to hospital to cover for Gram negative and MRSA PNA and aspiration. Will convert to PO Cefdinir/Flagyl at discharge; recommended to take daily probiotic due to h/o C. diff. MRSA swab negative. (3) Fever: Likely related to PNA -- see above. Afebrile >24 hours prior to discharge. (4) Atypical chest pain: Likely related to episodes of SVT and anxiety. C/o acute left sided chest/rib pain on 03/[address] PE imaging. 12 [address] with minimal ST depression in V6. Trop peaked at 0.5 then trended down secondary to myocardial demand ischemia from SVT in setting of significant LVH Cardiology consulted, appreciate input. Lidocaine patch with Tylenol prn for left sided pain related to muscle strain. Pain was resolved by time of discharge. (5) Primary malignant neoplasm of left upper lobe of lung: Follows with Dr. Lu from [facility]. Tumor responded well to chemotherapy; her oncologist wants to her to start immunotherapy. (6) Chronic obstructive pulmonary disease: Continued Advair BID with Duonebs qhr prn and Albuterol prn. No evidence of acute exacerbation -- no indication for steroids. (7) Anxiety: Pt. has been refusing Abilify, Valium as inpatient but is taking home Ativan & Prozac. Consulted psych, recommended starting Seroquel prn anxiety. Pt. refused to take this medication but did use one dose of Valium prn. She remained very anxious on day of discharge and did not want psych med adjusted by our team. She has f/u with psych PA on 03/22/19. Will need to establish care with new psychiatrist in future due to closure of her current clinic. Provided information for new establishment. (8) Hypertension: Continued Amlodipine, Coreg, Catapress, Hydralazine, HCTZ as prescribed. (9) Dehydration: Received IV fluids at 70 cc/hr, now discontinued. Discharged to home on 03/19/19. Total Time Total Time Spent Total Time Spent (In Minutes): >30 minutes Total Time Includes: Examination of the Patient, Discharge Planning, Medication Reconciliation, Communication With Other Providers and Other Discharge Plan Discharge Items Patient Disposition: Home - Self-Care Reason For Visit: CP Discharge Diagnosis: Paroxysmal SVT, Pneumonia, Anxiety Condition on Discharge: Fair Goals: You have been hospitalized for an acute medical problem. During your stay at [facility], we have made an effort to correct the problem that brought you to the hospital while keeping you as comfortable as possible. Medications were used to bring your condition under control and your discharge instructions will include directions for any medications you should take after leaving the hospital. Please make sure you see your Primary Care Provider as part of your follow up plan. Activity: As commented below Exercise/Sports: Gradually increase as tolerated Non-emergency contact: Primary Care Provider, Seismograph Operator and Psychiatrist Call non-emergency contact if: you have any medication questions, your symptoms worsen and you have a fever Follow-up/Referrals: [facility] [Other] (Please, follow up at [facility] to become established with a new psychiatrist / mental health provider. The office is located at [address] [place] [address] in [place]. To arrange an appointment, call the office at [phone]. They are accepting new patients and they take your insurance.) Vida Malnoe MD [Primary Care Provider] - 03/25/19 1:30 pm (Please, follow up at Dr. Aguila's office with her associate, Christine Cabrera PA-C, on MondayMarch 25 at 1:30 pm. *If you need to change this appointment, call their office at [phone].) Miracle Munoz PA-C [Physician Oil Well [employer] Tool Driller] - 04/01/19 2:45 pm (Please, follow up at [facility] with Miracle Munoz PA-C on MondayApril 01 at 2:45 pm. *If you need to change this appointment, call the office at [phone].) Miracle Wong PA-C [Outside Practitioners] - 03/22/19 11:00 am (Please, follow up at [facility] with Miracle Wong PA-C on MondayMarch 22 at 11:00 am. *If you need to change this appointment, call the office at [phone].) Diet: Heart Healthy Addtl Attending Provider Instructions: 1. Paroxysmal Supraventricular Tachycardia * Please take Amiodarone 200 mg daily to prevent future arrhythmias. * Please follow up with cardiology as scheduled on 04/01/2019. * Please call your primary care doctor or data processing consultant if you develop recurrent chest pain, palpitations or shortness of breath. 2. Pneumonia * Please take Cefdinir 300 mg twice daily and Flagyl 500 mg three times daily for treatment of infection. * It is recommended to take a daily probiotic at home in the setting of antibiotics - probiotic can be purchased over the counter. 3. Anxiety * Please continue psych meds as directed by psych provider. * Please follow up with psych as scheduled on 03/22/2019. * Consider referral to [facility] to establish care with a new psychiatrist -- information was provided above. 4. Please follow up with PCP as scheduled on 03/25/2019. Pending Studies at Discharge: Yes Studies:: Blood cultures are negative (prelim) Stand-Alone Forms: My [facility] Medications and DC Order Prescriptions: New Probiotic 3 billion cell capsule 3,000 mmu cells PO DAILY Qty: 14 RF: 0 amiodarone 200 mg Tablet 200 mg PO DAILY Qty: 30 RF: 2 cefdinir 300 mg Capsule 300 mg PO BID 6 Days Qty: 12 RF: 0 metronidazole [Flagyl] 500 mg tablet 500 mg PO Q8H 6 Days Qty: 18 RF: 0 Continued multivitamin Tablet 1 tab PO QAM Qty: 0 RF: 0 lorazepam 1 mg Tablet 3 mg PO HS Qty: 0 RF: 0 aripiprazole 5 mg Tablet 5 mg PO QAM Qty: 0 RF: 0 amlodipine 10 mg Tablet 5 mg PO BID Qty: 0 RF: 0 (DME) Scooter Misc See Dose Instructions .ROUTE .MEDSUPPLY Qty: 1 RF: 0 albuterol sulfate 90 mcg/actuation HFA aerosol inhaler 2 puff INHALATION Q4H PRN (Reason: shortness of breath or wheezing) Qty: 1 RF: 5 carvedilol 25 mg tablet 25 mg PO BID Qty: 0 RF: 0 Arnuity Ellipta 100 mcg/actuation blister with device 1 inh inhalation DAILY Qty: 1 RF: 5 ipratropium-albuterol 0.5 mg-3 mg(2.5 mg base)/3 mL solution for nebulization 3 ml INHALATION Q4H PRN (Reason: Shortness Of Breath) Qty: 180 RF: 5 fluticasone propion-salmeterol [Advair Diskus] 500-50 mcg/dose blister with device 1 puffs INH BID Qty: 60 RF: 5 hydrochlorothiazide 25 mg tablet 25 mg PO QAM RF: 0 clonidine HCl 0.3 mg tablet 0.3 mg PO BID RF: 0 Rolaids 550-110 mg Tablet,Chewable 2 tab PO Q6H RF: 0 tobramycin 0.3 % drops 1 drops OP DAILY PRN (Reason: .) RF: 0 ergocalciferol (vitamin D2) 50,000 unit capsule 50,000 units PO MWF@1800 RF: 0 cholecalciferol (vitamin D3) 25 mcg (1,000 unit) tablet 1,000 unit PO QDL RF: 0 hydralazine 50 mg tablet 50 mg PO BID RF: 0 Changed diazepam 10 mg tablet 5 mg PO TID PRN (Reason: anxiety) Qty: 0 RF: 0 fluoxetine 20 mg capsule 20 mg PO BID Qty: 0 RF: 0 Discontinued ondansetron HCl [Zofran] 8 mg tablet 8 mg PO Q8H PRN (Reason: Nausea) RF: 0 codeine-guaifenesin 10-100 mg/5 mL liquid 5 ml PO Q6H PRN (Reason: cough) Qty: 236 RF: 0 Discharge Orders: Discharge Order (Routine); Ordered 03/19/19 Ordered By: Zenia Ewing Admission Data Admit Date/Time: 03/16/19 23:21 Attending Provider: Zenia Ewing Admit Provider: Aldo Dumont Primary Care Provider: Vida Malone V. Other Providers: Aldo Dumont ; Jaziel Starr ; Faby Baptiste Other Interventions: Discharge Summary Assessment (RN) Last Done: 03/19/19 11:39 DC Date/Time DO NOT enter until pt leaves facility: 03/19/19 12:11 Supervising Physician Co-Signing Physician Notes PA Supervision Note: I personally saw and examined the patient. I verified all christian points and agree with DICK Allison with the following exceptions and/or additions: Pt feeling much better, afebrile, no further SVT episodes. No chest pains. Anxiety improved when I saw her prior to discharge. VSS NAD, thin, underweight RRR no mgr Lungs diminished throughout, no wheezes/crackles/rhonchi Abd soft NT ND +BS Ext no edema or calf tenderness Stable for dc to home after admission for chest pain, SVT, and development of pneumonia -continue abx, watch for Yumiko hinson given history of such, now on amiodarone for SVT and needs f/u with Cardio
[2019-03-20] MEDS ORDERED: AMIODARONE 200 MG TAB PO SCH (09:00)
[2019-03-20] MEDS ORDERED: SACCHAROMYCES BOULARDII 250 MG CAP PO SCH (09:00)
== END 2019-03-19 12:11 | disposition home or self-care (01) | DRG 308 ==
LOC: 2S 12:50 → ED 12:50 → SUATTDRO 16:41 → 2S 17:09 → SUATTDRO 03-16 23:21